=== PATIENT | male | born 1940 | race Caucasian/White ===

== ENCOUNTER → 2017-09-12 08:10 | Outpatient (POV) | payer MEDICARE, SELFPAY | PROVIDERS: PCP Internal Medicine Adolescent Medicine; Visit Provider Dermatology | DX: Z00.00 Encounter for general adult medical examination without abnormal findings (principal) ==

== ENCOUNTER → 2018-01-09 14:42 | Outpatient (POV) | payer MEDICARE, SELFPAY | PROVIDERS: Visit Provider Dermatology | DX: Z00.00 Encounter for general adult medical examination without abnormal findings (principal) ==

== ENCOUNTER → 2018-01-24 12:48 | Outpatient (CLI) | payer MEDICARE, SELFPAY ==
--- NOTE | 2018-01-24 12:52 | US_ITS ---
US scrotum HISTORY: ITS.REASON: SCROTOL SWELLING ORDERING PHYSICIAN: Kvng Frost MD PATIENT AGE: 77 years Comparison: None FINDINGS: The right testicle is 4.1 x 2.4 x 3.8 cm. Blood flow is present. No obvious testicular mass. No epididymal mass. There is a small hydrocele. The left testicle measures 3.9 x 2.2 x 3.6 cm. No mass evident. Blood flow is present. No obvious epididymal mass. Only a small amount fluid noted. There is moderate thickening of the scrotum anteriorly which is somewhat hyperechoic measuring up to 1 cm in thickness. IMPRESSION: 1. No testicular mass. 2. Small right hydrocele. 3. Moderate thickening of the scrotum anteriorly measuring up to 1 cm in thickness slightly hyperechoic. This is of questionable etiology possibly related to fat deposition.
== END ==
PROVIDERS: PCP Internal Medicine Adolescent Medicine; Visit Provider Urology
DX: N50.89 Other specified disorders of the male genital organs (principal)
CPT/HCPCS: 76870

== ENCOUNTER 2018-04-14 11:07 | Observation (INO) ==
--- NOTE | 2018-04-14 11:35 | Emergency Department Note ---
ED Disposition Clinical Impression: Fall, Atypical chest pain, Obesity (BMI 30-39.9), Arm paresthesia, left Disposition: Still a Patient Condition on Discharge: Fair - Critical Care Critical Care Time: No Attestation: On , the high probability of a clinically significant, sudden or life threatening deterioration of the following system(s) required my full and direct attention, intervention and personal management. The time I documented below is in addition to time spent performing reported procedures but includes the following listed in this critical care notation. Medical Decision Making - Medical Records Medical records reviewed: Yes: I reviewed the patient's medical records. - Heri Inquiry Pt receiving controlled substance: No Heri was queried for this patient: No Vital Signs: 04/14/18 11:11 04/14/18 11:39 Temperature 98.2 F Temperature Source Oral Oral Pulse Rate [Right Brachial] 83 77 Respiratory Rate 20 18 Blood Pressure [Right Arm] 145/81 131/71 Blood Pressure Mean [Right Arm] 102 91 Blood Pressure Source [Right Arm] Automatic Cuff Automatic Cuff Blood Pressure Position [Right Arm] Sitting Sitting 02 Sat by Pulse Oximetry 90 L 93 L Oxygen Delivery Method Room Air Room Air Orders (Tests/Meds): ORDERS Category Date Time Status CT cervical spine wo con Stat Cat Scan 04/14/18 11:[address] head/brain wo con Stat Cat Scan 04/14/18 11:37 Ordered XR chest 2V Stat Exams 04/14/18 11:37 Ordered Cardiac Enzymes Stat Lab 04/14/18 11:37 Ordered Complete Blood Count Auto Diff Stat Lab 04/14/18 11:37 Ordered Comprehensive Metabolic Panel Stat Lab 04/14/18 11:37 Ordered ECG Request by /Veronique Stat Y 04/14/18 11:37 Ordered - ECG Data Tracing #1 Normal sinus rhythm 73/min baseline artifact Q-wave in the inferior leads 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 No acute findings. ECG initial impression date: 04/14/18 ECG initial impression time: 12:03 Fall HPI - General Chief Complaint: Fall Stated Complaint: AO 04/14/18 [place] Arms, dizzy Time Seen by Provider: 04/14/18 11:11 Mode of Arrival: Family Vehicle Limitations: No Limitations Description of Symptoms (Recalled from ER Triage Doc. by RN): S/P FALL WHILE WORKING ON [employer]. C/O SOB X 3-4 WEEKS AND NUMBNESS OF LEFT ARM. SKIN TEAR TO RIGHT ARM - History of Present Illness HPI Narrative: 27 years old white male with obesity and coronary artery disease status post stenting in 2011, continues to be an anticoagulation for his stent. Today while he was cleaning under his lawnmower he fell forward because of his artificial knees the result of a skin avulsion over the proximal right forearm. He informed the nursing staff that he has been experiencing numbness over the left upper extremity for the past 3 hours. Also he has been experiencing shortness of breath for the past 3-4 weeks and sharp left inframammary pain for the past 2 days. 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 ) - Related Data Home Medications Medication Instructions Recorded Confirmed aspirin 81 mg tablet,delayed 81 mg PO DAILY 01/21/18 04/14/18 release atorvastatin 80 mg tablet 80 mg PO HS 90 Days tab 01/21/18 04/14/18 folic acid 1 mg tablet 1 mg PO DAILY 30 Days tab 01/21/18 04/14/18 lisinopril 5 mg tablet 5 mg PO DAILY 90 Days tab 01/21/18 04/14/18 metoprolol tartrate 25 mg tablet 25 mg PO BID 90 Days tab 01/21/18 04/14/18 Allergies Allergy/AdvReac Type Severity Reaction Status Date / Time No Known Allergies Allergy Verified 04/14/18 11:18 [facility] History I have reviewed the patient's past medical history: Yes Medical History: Reports:: Cancer Denies:: Diabetes Mellitus Type 1, Diabetes Mellitus Type 2, MRSA Comment: Heart Attack Laterality Cases: Bilateral: Total Knee Replacement Comment: Knee surgery, Cardiac surgery - Social History Smoking Status: Former smoker Tobacco Type: cigarettes # Packs/Day (cigarettes): 1 #Yrs smoked (if former smoker): 12 Alcohol Intake: never Substance Use Type: denies use Occupational Status: retired - Psychiatric History Expresses thoughts of harming self/others: None Suicide Plan Description: No Plan Family Hx:: Hyperlipidemia, Diabetes, Hypertension, Stroke Comment: Arthritis ROS Obtained: Yes All systems reviewed & no additional complaints Physical Exam - General General appearance: alert, in no apparent distress, other (Patient is alert oriented 3 looks in no cardiopulmonary distress provided full detailed history. ) - Head Head exam: atraumatic, normocephalic, normal inspection - Eye Eye exam: Present: normal appearance, PERRL, EOMI. Absent: scleral icterus, jaundice, nystagmus - ENT ENT exam: Present: normal exam, normal oropharynx, mucous membranes moist, TM's normal bilaterally, normal external ear exam - Neck Neck exam: Present: normal inspection, full ROM, trachea midline. Absent: tenderness, meningismus, lymphadenopathy - Chest Chest inspection: Present: normal inspection, symmetric chest wall rise. Absent : tenderness - Respiratory Respiratory exam: Present: normal lung sounds bilaterally. Absent: respiratory distress, wheezes - Cardiovascular Cardiovascular exam: Present: regular rate, normal rhythm, normal heart sounds. Absent: JVD - Abdominal Exam Abdominal exam: Present: soft, normal bowel sounds. Absent: distention, tenderness, guarding, rebound, rigidity - Extremities Exam Extremities exam: Present: normal inspection, full ROM, normal capillary refill. Absent: tenderness, calf tenderness - Back Exam Back exam: Present: normal inspection. Absent: tenderness, CVA tenderness (R), CVA tenderness (L), paraspinal tenderness - Neurological Exam Neurological exam: Present: alert, oriented X3, CN II-XII intact, normal gait, motor sensory deficit, reflexes normal, other - Expanded Neurological Exam Patient oriented to: Present: person, place, time Speech: Present: fluid speech Cranial nerves: Normal: EOM function (II, III, IV, ), facial sensation (V), facial palsy (VII), gag reflex (IX), spinal accessory function (XI), tongue deviation (XII) Cerebellar function: Normal: finger to nose, heel to [place] Cerebellar function: normal gait, Romberg normal Motor strength - LUE: 5/5 Motor strength - RUE: 5/5 Motor strength - LLE: 5/5 Motor strength - RLE: 5/5 Upper motor neuron exam: Absent bilaterally: john neglect, pronator drift, Babinski sign, sensory extinction Sensory exam upper extremity: Normal: pin prick Sensory exam lower extremity: Normal: pin prick DTR: 1+: biceps (L), biceps (R), brachioradialis (L), brachioradialis (R), triceps (L), triceps (R), Achilles tendon (L), Achilles tendon (R) Coma scale eye opening: Spontaneous Coma scale motor response: Obeys commands Coma scale verbal response: Oriented Coma scale total: 15 - Psychiatric Psychiatric exam: Present: normal affect, normal mood - Skin Skin exam: Present: warm, dry, intact, normal color - Lymphatic Lymphatic Findings: no adenopathy - Other Other exam information: The patient walked tandem negative rombergism intact finger to nose test.
[2018-04-14 12:10] LABS: Basophils % 0.4 % (0.1-2.0); Eosinophils # 0.2 K/mm3 (0.0-0.4); Eosinophils % 2.3 % (0.1-12.0); Hematocrit 41.7 % (42.0-52.0); Hemoglobin 13.4 g/dL (14.1-18.0); Lymphocytes # 1.2 K/mm3 (0.7-4.5); Mean Corpuscular HGB Conc 32.1 g/dL (31.8-35.4); Mean Corpuscular Hemoglobin 28.1 pg (27.0-31.2); Mean Corpuscular Volume 87.4 fl (80-94); Mean Platelet Volume 6.9 fl (7.4-10.4); Monocytes # 0.5 K/mm3 (0.1-1.0); Neutrophils # 5.4 K/mm3 (1.8-7.8); Neutrophils % 74.3 % (37.0-80.0); Platelet Count 248 K/mm3 (142-424); Red Blood Count 4.77 M/mm3 (4.60-6.20); Red Cell Distribution Width 16.1 % (11.5-17.5); White Blood Count 7.3 K/mm3 (4.8-10.8)
[2018-04-14 13:16] LABS: Alanine Aminotransferase 24 U/L (12-78); Albumin Level 3.3 gm/dL (3.4-5.0); Albumin/Globulin Ratio 0.9 (1.1-1.8); Alkaline Phosphatase 81 U/L (46-116); Anion Gap 8.5 mEq/L (5-15); Aspartate Amino Transferase 12 U/L (15-37); Bilirubin,Total 0.5 mg/dL (0.2-1.0); Blood Urea Nitrogen 13 mg/dL (7-18); Calcium 9.3 mg/dL (8.5-10.1); Carbon Dioxide 29 mmol/L (21.0-32.0); Chloride 109 mmol/L (98-107); Creatine Kinase 69 U/L (39-308); Globulin 3.5 gm/dl (1.3-3.2); Glucose 106 mg/dL (74-106); Potassium 4.5 mmoL/L (3.5-5.1); Sodium 142 mmol/L (136-145); Total Protein,Serum 6.8 gm/dL (6.4-8.2)
[2018-04-14 13:40] LABS: Microscopic, Urine URINE MICROSCOPIC (MICROSCOPIC)
[2018-04-14 13:48] LABS: Appearance,Urine CLEAR (Clear); Bilirubin,Urine Negative (Negative); Blood, Urine Negative (Negative); Color,Urine YELLOW (Yellow); Glucose,Urine (UA) Negative (Negative); Ketones,Urine Negative (Negative); Leukocyte Esterase,Urine Negative (Negative); Protein,Urine Negative (Negative); Specific Gravity, Urine 1.015 (1.005-1.030); Urobilinogen,Urine 0.2 EU/dl (0.2)
[2018-04-14 14:11] LABS: Bacteria,Urine 2+ /lpf; Mucus,Urine 2+ /lpf; Squamous Epithelial Cell,Urine Occasional #/hpf (0-5)
--- NOTE | 2018-04-14 14:30 | Pharmacy Consult Notes ---
[facility] Pharmacy VTE Monitoring - Patient Demographics Admission date: 04/14/18 Report Date: 04/14/18 Time: 14:29 Allergies/Adverse Reactions: Patient Allergies No Known Allergies Allergy (Verified 04/14/18 11:18) Height: 1.68 m Weight: 113.398 kg Patient Problems: Current Active Problems Fall (Acute) Atypical chest pain (Acute) Obesity (BMI 30-39.9) (Acute) Arm paresthesia, left (Acute) - VTE Risk Labs: VTE Related Lab Results Hgb 13.4 g/dL (14.1-18.0) L 04/14/18 12:00 Hct 41.7 % (42.0-52.0) L 04/14/18 12:00 Plt Count 248 K/mm3 (142-424) 04/14/18 12:00 BUN 13 mg/dL (7-18) 04/14/18 12:00 Creatinine 0.80 mg/dL (0.70-1.30) 04/14/18 12:00 Estimated Creat Clear 102 mL/min (0-300) 04/14/18 12:00 Clinical Trial Participant: No - Prophylaxis VTE Prophylaxis Ordered?: Yes Types of VTE Prophylaxis: TEDS Knee High
--- NOTE | 2018-04-14 16:10 | Carotid Imaging Report ---
"Cerebrovascular Exam Indications: 782.0 Disturbance of skin sensation. IMPRESSIONS 1. The bilateral vertebral arteries are patent with normal antegrade flow. 2. Study suggests 20-49% stenosis involving the right internal carotid artery and the left internal carotid artery, lower end of scale. Carotid duplex study. Complete study and Doppler flow study including spectral analysis, color and clayton scale imaging. Height: Height: 167.6cm. Height: 66in. Weight: Weight: 113.4kg. Weight: 249.5lb. Body mass index: BMI: 40.4kg/m^2. Body surface area: BSA: 2.35m^2. Location: Vascular laboratory. Patient status: Inpatient. Tables: Arterial flow: + +---------+--------+ |Location |V sys |V ed | + +---------+--------+ |Right CCA - proximal|85.6cm/s |16.5cm/s| + +---------+--------+ |Right CCA - distal |101cm/s |22cm/s | + +---------+--------+ |Right ECA |-84.9cm/s|--------| + +---------+--------+ |Right ICA - proximal|89.9cm/s |28.3cm/s| + +---------+--------+ |Right ICA - mid |77.3cm/s |27.7cm/s| + +---------+--------+ |Right ICA - distal |87.4cm/s |27.7cm/s| + +---------+--------+ |Right vertebral |31.4cm/s |--------| + +---------+--------+ |Left CCA - proximal |106cm/s |26.4cm/s| + +---------+--------+ |Left CCA - distal |71cm/s |16.3cm/s| + +---------+--------+ |Left ECA |119cm/s |--------| + +---------+--------+ |Left ICA - proximal |108cm/s |36.9cm/s| + +---------+--------+ |Left ICA - mid |97.4cm/s |38.5cm/s| + +---------+--------+ |Left vertebral |61.6cm/s |--------| + +---------+--------+ Velocity ratios: + + + + + + | |Right, V sys|Right, V ed|Left, V sys|Left, V ed| + + + + + + |Max ICA/dist CCA|0.89 |1.29 |1.52 |2.36 | + + + + + + (Report amended ) Electronically signed by: Fernando Carrasquillo [id number]"
--- NOTE | 2018-04-14 17:50 | History & Physical Report ---
*Admission Date: 04/14/18 *Chief complaint: Fall with right arm abrasion *History of present illness: 77-year-old white male with multiple medical problems including known coronary disease, status post stent placement in [address] Soren Blanca at [facility]-currently no available records of this procedure-who fell down after trying to start his lawnmower this morning. He states he stumbled after lifting up his torso after trying to start the lawnmower and fell down, coned abrasion on his left elbow on the asphalt of his driveway. Because of the size of the abrasion came to the emergency department. In the emergency department also complained of some dyspnea. Reported that he had chest pain off and on over the past 3 weeks, also complained of some left arm numbness that had resolved by the time he came to the ER. The abrasion was appropriately dressed and treated, workup for the left arm numbness and chest pain included negative CT scan of neck, negative CT scan of head and normal cardiac enzymes but given his accelerating angina pattern was to the hospital for further diagnostic testing. At the time of my examination the floor patient was feeling better, denied any complaints of left arm numbness or chest pain but was dyspneic with any movement around the room. [facility] History I have reviewed the patient's past medical history: Yes Medical History: Reports:: Congestive Heart Failure, Coronary Artery Disease ( Stents placed 2011), Hyperlipidemia, Hypertension, Myocardial Infarction Denies:: Cancer, Diabetes Mellitus Type 1, Diabetes Mellitus Type 2, MRSA Laterality Cases: Bilateral: Total Knee Replacement Other Surgeries: Yes: Cardiac Catheterization, Coronary Stent - *Social History Educational Level: Attended High School Smoking Status: Former smoker Tobacco Type: cigars # Packs/Day (cigarettes): 1 #Yrs smoked (if former smoker): 15 Alcohol Intake: never Alcohol Intake Frequency:: holidays/special occasions only Substance Use Type: denies use Occupational Status: retired Household Members: spouse - Psychiatric History Expresses thoughts of harming self/others: None Suicide Plan Description: No Plan *Family Hx:: Hyperlipidemia, Diabetes, Hypertension, Stroke Review of Systems - Review of Systems Review of systems:: pertinent systems reviewed and negative unless documented below - Constitutional Denies anorexia, Denies body ache(s), Denies chills, Denies daytime sleepiness - Eyes Denies blind spots, Denies blurry vision - ENT Denies abnormal hearing, Denies change in voice, Denies poor balance, Denies dizziness - *Cardiovascular Reports chest pain, Reports chest pain with activity, Reports shortness of breath, Reports shortness of breath with activity, Reports lightheadedness, Reports shortness of breath when lying down, Reports radiating jaw, neck or arm pain, Denies irregular heart rhythm, Denies leg swelling, Denies leg sores, Denies rapid, pounding, or irregular heartbeat - *Respiratory Reports shortness of breath, Reports shortness of breath with activity, Denies change in phlegm color, Denies chest congestion, Denies cough, Denies excessive phlegm production - *Gastrointestinal Denies abdominal pain, Denies belching, Denies bloating, Denies change in bowel habits, Denies constipation, Denies loose stools, Denies difficulty swallowing - *Genitourinary Denies difficulty urinating, Denies blood in urine Meds Home Medications Medication Instructions Recorded Confirmed Type aspirin 81 mg tablet,delayed 81 mg PO DAILY 01/21/18 04/14/18 History release atorvastatin 80 mg tablet 80 mg PO HS 90 Days tab 01/21/18 04/14/18 History folic acid 1 mg tablet 1 mg PO DAILY 30 Days tab 01/21/18 04/14/18 History lisinopril 5 mg tablet 5 mg PO DAILY 90 Days tab 01/21/18 04/14/18 History metoprolol tartrate 25 mg tablet 25 mg PO BID 90 Days tab 01/21/18 04/14/18 History Fluticasone Propionate [Flonase 1 spr NS DAILYP PRN 04/14/18 04/14/18 History 50mcg nasal spray 16gm] Tamsulosin HCl [Flomax 0.4mg 0.4 mg PO DAILY 04/14/18 04/14/18 History capsule] metHOTREXate sodium [metHOTREXate 15 mg PO WEEKLY 04/14/18 04/14/18 History 2.5mg Tablet] Allergies Allergy/AdvReac Type Severity Reaction Status Date / Time No Known Allergies Allergy Verified 04/14/18 11:18 Exam Vital signs and Labs for Last 24 Hours: Temp Pulse Resp BP Pulse Ox 98.5 F 78 20 124/81 95 04/14/18 15:40 04/14/18 15:40 04/14/18 15:40 04/14/18 15:40 04/14/18 15:40 Laboratory Results - last 24 hr 04/14/18 12:00: WBC 7.3, RBC 4.77, Hgb 13.4 L, Hct 41.7 L, MCV 87.4, MCH 28.1, MCHC 32.1, RDW 16.1, Plt Count 248, MPV 6.9 L, Neut % (Auto) 74.3, Lymph % (Auto ) 16.0, [place] % (Auto) 7.0, Eos % (Auto) 2.3, Baso % (Auto) 0.4, Neut # (Auto) 5.4, Lymph # (Auto) 1.2, [place] # (Auto) 0.5, Eos # (Auto) 0.2, Baso # (Auto) 0.0 04/14/18 12:00: Sodium 142, Potassium 4.5, Chloride 109 H, Carbon Dioxide 29, Anion Gap 8.5, BUN 13, Creatinine 0.80, Estimated Creat Clear 102, Estimated GFR 94, Est GFR ( Amer) 114, Glucose 106, Calcium 9.3, Total Bilirubin 0.5, AST 12 L, ALT 24, Alkaline Phosphatase 81, Total Creatine Kinase 69, CK-MB (CK-2) 0.8, CK-MB (CK-2) Rel Index 1.2, Troponin I < 0.02, Total Protein 6.8, Albumin 3.3 L, Globulin 3.5 H, Albumin/Globulin Ratio 0.9 L 04/14/18 12:00: B-Natriuretic Peptide 145 H 04/14/18 13:30: Urine Color Yellow, Urine Appearance Clear, Urine pH 7.0, Ur Specific [place] 1.015, Urine Protein Negative, Urine Glucose (UA) Negative, Urine Ketones Negative, Urine Blood Negative, Urine Nitrate Negative, Urine Bilirubin Negative, Urine Urobilinogen 0.2, Ur Leukocyte Esterase Negative, Urine RBC None, Urine WBC 3-5, Ur Squamous Epith Cells Occasional, Urine Bacteria 2+, Urine Mucus 2+ 04/14/18 15:40: Troponin I < 0.02 I & O for Last 24 hours: Intake & Output 04/12/18 04/13/18 04/14/18 04/15/18 11:59 11:59 11:59 11:59 Intake Total 560 / 560 Balance 560 / 560 Weight 250 lb 250 lb Narrative: Patient is obese with pickwickian features. Is dyspneic with any kind of movement or significant conversation. Heart rate regular without murmurs. Abdomen is obese but soft, lungs in the anterior garcia are clear. Able to move all extremities well. Has no weakness or reflex abnormalities of upper or lower extremities. Right elbow is in a gauze wrapped bandage with no evidence of bleeding or drainage from the dressing. Cranial nerves are intact. No edema in upper or lower extremities. H&P: Result - Labs Labs: Short CBC 04/14/18 Range/Units 12:00 WBC 7.3 (4.8-10.8) K/mm3 Hgb 13.4 L (14.1-18.0) g/dL Hct 41.7 L (42.0-52.0) % Plt Count 248 (142-424) K/mm3 BMP 04/14/18 12:00 Sodium 142 Potassium 4.5 Chloride 109 H Carbon Dioxide 29 BUN 13 Creatinine 0.80 Glucose 106 Calcium 9.3 Cardiac Enzymes 04/14/18 04/14/18 Range/Units 12:00 15:40 Total Creatine Kinase 69 (39-308) U/L CK-MB (CK-2) 0.8 (0.0-3.6) ng/ml Troponin I < 0.02 < 0.02 (0.00-0.06) ng/ml Liver Function 04/14/18 Range/Units 12:00 Total Bilirubin 0.5 (0.2-1.0) mg/dL AST 12 L (15-37) U/L ALT 24 (12-78) U/L Alkaline Phosphatase 81 (46-116) U/L Albumin 3.3 L (3.4-5.0) gm/dL Urine 04/14/18 Range/Units 13:30 Urine Color Yellow (Yellow) Urine Appearance Clear (Clear) Urine pH 7.0 (5.0-8.5) Ur Specific [place] 1.015 (1.005-1.030) Urine Protein Negative (Negative) Urine Glucose (UA) Negative (Negative) Assessment and Plan (1) Coronary atherosclerosis of [place] coronary artery Current visit: Yes Status: Acute Category: Medical Code(s): I25.10 - Atherosclerotic heart disease of [place] coronary artery without angina pectoris Significant risk of recurrent disease. Echocardiogram has been done. Pending report. Initial sets of cardiac enzymes are negative. Cardiology evaluation tomorrow for evaluation for recurrent heart catheterization versus stress testing. (2) Hypertension Current visit: Yes Status: Acute Category: Medical Code(s): I10 - Essential (primary) hypertension Blood pressure well controlled currently. Continue medications (3) Morbid obesity with BMI of 40.0-44.9, adult Current visit: Yes Status: Acute Category: Medical Code(s): E66.01 - Morbid (severe) obesity due to excess calories; Z68.41 - Body mass index (BMI) 40.0-44.9, adult Complicates all aspects of his care (4) Arm paresthesia, left Current visit: Yes Status: Acute Category: Medical Code(s): R20.2 - Paresthesia of skin Currently resolved. Carotid Dopplers negative. CT scan reviewed. Coronary disease needs to be considered. (5) Atypical chest pain Current visit: Yes Status: Acute Category: Medical Code(s): R07.89 - Other chest pain See notes on coronary disease as above (6) Fall Current visit: Yes Status: Acute Category: Medical Code(s): W19.XXXA - Unspecified fall, initial encounter Multiple issues with fall risk. Fall precautions in the hospital
--- NOTE | 2018-04-14 20:30 | Cardiology Report ---
PROCEDURE: 2-D M-mode and color Doppler study INDICATIONS FOR THE TEST: Chest pain + COPD Heart Murmur Tobacco Smoking Palpitations Fatigue Syncope Edema Hypertension Diabetes Mellitus Rheumatic Fever SOB+SYLVESTER Obesity+Hyperlipidemia Family History HD Additional History CAD, STENTS PATIENT INFORMATION HEIGHT: 66 WEIGHT:250 GENDER: Male B/P:131/71 2-D/M-MODE INTERPRETATION: 2-D MEASUREMENTS OBSERVED VALUES IN CMS Right Ventricular Dimension (RVDd) 2.9 Interventricular Septum (Thickness)(IVsd) 1.5 Left Ventricular Internal Dimensions(LVIDd) 5.3 Left Ventricular Posterior Wall (Thickness)(LVPWd) 1.3 Aortic Root 3.9 Aortic Cusp Separation 1.8 Left Atrial Dimensions (LAD) 5.1 2D 1. Left atrium is moderately enlarged, left ventricle is normal size, mild concentric left ventricular hypertrophy, visually estimated ejection fraction 55% with no obvious regional wall motion abnormality. 2. The right atrium and right ventricle are mildly enlarged with normal contractility. 3. The aortic valve is minimally thickened and fibrosed. 4. The mitral and tricuspid valve leaflets are minimally thickened 5.The pulmonic valve is poorly visualized. 6. No significant pericardial effusion noted. DOPPLER INTERROGATION: Doppler interrogation of the aortic, mitral and tricuspid valvular presence of mild mitral and tricuspid regurgitation, tricuspid and jet velocity is insufficient for calculation of the right ventricular systolic pressure, grade 1 diastolic dysfunction seen with tissue Doppler evidence of raised left atrial pressure. CONCLUSION: 1. Moderately enlarged atrium, normal left ventricular size, mild concentric left ventricular hypertrophy, visually estimated ejection fraction 55% with no obvious regional wall motion abnormality, grade 1 diastolic dysfunction seen with tissue Doppler evidence of raised left atrial pressure. 2. Mild mitral and tricuspid regurgitation 3. No significant pericardial effusion noted.
[2018-04-15 06:08] LABS: Basophils % 0.3 % (0.1-2.0); Eosinophils # 0.2 K/mm3 (0.0-0.4); Eosinophils % 2.4 % (0.1-12.0); Hematocrit 40.3 % (42.0-52.0); Lymphocytes # 1.3 K/mm3 (0.7-4.5); Lymphocytes % 15.4 K/mm3 (10-50); Mean Corpuscular HGB Conc 32.2 g/dL (31.8-35.4); Mean Corpuscular Hemoglobin 28.4 pg (27.0-31.2); Mean Corpuscular Volume 88.2 fl (80-94); Mean Platelet Volume 7.1 fl (7.4-10.4); Monocytes # 0.5 K/mm3 (0.1-1.0); Monocytes % 6.3 % (1.7-9.3); Neutrophils # 6.4 K/mm3 (1.8-7.8); Neutrophils % 75.5 % (37.0-80.0); Platelet Count 229 K/mm3 (142-424); Red Blood Count 4.57 M/mm3 (4.60-6.20); White Blood Count 8.4 K/mm3 (4.8-10.8)
[2018-04-15 06:35] LABS: Anion Gap 7.2 mEq/L (5-15); Calcium 9.2 mg/dL (8.5-10.1); Chol/HDL Ratio 2.5 (1-3.5); Potassium 4.2 mmoL/L (3.5-5.1)
--- NOTE | 2018-04-15 08:06 | Consult Report ---
History of Present Illness Consult date: 04/15/18 Requesting physician: Fran So Consult reason: chest pain, shortness of breath Chief complaint: SOA, chest pain, left arm pain Additional Medical History:: 1. Hypertension 2. Hyperlipidemia 3. Remote tobacco use discontinued 15 years ago 4. Coronary artery disease A. Inferior MD with stenting of the right coronary artery June 2012, , Dr. Blanca 5. Psoriasis, on methotrexate 6. Obesity 7. Status post bilateral knee replacements 8. History of kidney stones requiring interventional therapy and treatment History of present illness: 77-year-old white male with previous coronary artery disease, inferior MD and subsequent RCA stenting 3 in 2011 presented to the emergency department for evaluation and treatment of an abrasion of the right forearm after falling while working on a lawnmower. He denies syncope. Patient has dressing over an abrasion of the right forearm. While in the ER patient did mention 2-3 week history of shortness of breath stinging type left-sided chest pain and left arm discomfort started yesterday morning upon waking. Denies any loss of use of the left arm. No appreciable aggravating or alleviating symptoms to the chest pain. Shortness of breath is persistent through activity. Patient was admitted for evaluation of possible coronary artery disease. Troponins 4 are normal overnight. EKG is sinus with some residual inferior changes from previous MD without acute changes at this time. Echocardiogram shows normal left ventricular size with mild concentric LVH and moderate left atrial enlargement with left atrial size of 5.1 cm with no significant valvular heart disease. Patient did have carotid ultrasound showing mild to moderate carotid artery disease. Cardiology consulted for evaluation recommendations. Pt is concerned about being away from his who had a stroke several years ago and he is the primary caregiver. [facility] History Medical History: Reports:: Congestive Heart Failure, Coronary Artery Disease ( Stents placed 2011), Hyperlipidemia, Hypertension, Myocardial Infarction Denies:: Cancer, Diabetes Mellitus Type 1, Diabetes Mellitus Type 2, MRSA Laterality Cases: Bilateral: Total Knee Replacement Other Surgeries: Yes: Cardiac Catheterization, Coronary Stent - *Social History Educational Level: Attended High School Smoking Status: Former smoker Tobacco Type: cigars # Packs/Day (cigarettes): 1 #Yrs smoked (if former smoker): 15 Alcohol Intake: never Alcohol Intake Frequency:: holidays/special occasions only Substance Use Type: denies use Occupational Status: retired Household Members: spouse - Psychiatric History Expresses thoughts of harming self/others: None Suicide Plan Description: No Plan *Family Hx:: Hyperlipidemia, Diabetes, Hypertension, Stroke Meds Home Medications Medication Instructions Recorded Confirmed Type aspirin 81 mg tablet,delayed 81 mg PO DAILY 01/21/18 04/14/18 History release atorvastatin 80 mg tablet 80 mg PO HS 90 Days tab 01/21/18 04/14/18 History folic acid 1 mg tablet 1 mg PO DAILY 30 Days tab 01/21/18 04/14/18 History lisinopril 5 mg tablet 5 mg PO DAILY 90 Days tab 01/21/18 04/14/18 History metoprolol tartrate 25 mg tablet 25 mg PO BID 90 Days tab 01/21/18 04/14/18 History Fluticasone Propionate [Flonase 1 spr NOSTRIL-B DAILYP PRN 04/14/18 04/15/18 History 50mcg nasal spray 16gm] Tamsulosin HCl [Flomax 0.4mg 0.4 mg PO DAILY 04/14/18 04/14/18 History capsule] metHOTREXate sodium [metHOTREXate 15 mg PO WEEKLY 04/14/18 04/14/18 History 2.5mg Tablet] Allergies Allergy/AdvReac Type Severity Reaction Status Date / Time No Known Allergies Allergy Verified 04/14/18 11:18 Review of Systems - *Cardiovascular Reports chest pain, Reports shortness of breath with activity - *Respiratory Reports shortness of breath - *Gastrointestinal Denies abdominal pain - *Musculoskeletal Reports joint pain - *Neurologic Denies abnormal hearing, Denies unsteadiness, Denies dizziness Exam Vital signs and Labs for Last 24 Hours: Temp Pulse Resp BP Pulse Ox 98.4 F 81 22 139/78 92 L 04/15/18 07:47 04/15/18 07:47 04/15/18 07:47 04/15/18 07:47 04/15/18 07:47 Laboratory Results - last 24 hr 04/14/18 12:00: WBC 7.3, RBC 4.77, Hgb 13.4 L, Hct 41.7 L, MCV 87.4, MCH 28.1, MCHC 32.1, RDW 16.1, Plt Count 248, MPV 6.9 L, Neut % (Auto) 74.3, Lymph % (Auto ) 16.0, [place] % (Auto) 7.0, Eos % (Auto) 2.3, Baso % (Auto) 0.4, Neut # (Auto) 5.4, Lymph # (Auto) 1.2, [place] # (Auto) 0.5, Eos # (Auto) 0.2, Baso # (Auto) 0.0 04/14/18 12:00: Sodium 142, Potassium 4.5, Chloride 109 H, Carbon Dioxide 29, Anion Gap 8.5, BUN 13, Creatinine 0.80, Estimated Creat Clear 102, Estimated GFR 94, Est GFR ( Amer) 114, Glucose 106, Calcium 9.3, Total Bilirubin 0.5, AST 12 L, ALT 24, Alkaline Phosphatase 81, Total Creatine Kinase 69, CK-MB (CK-2) 0.8, CK-MB (CK-2) Rel Index 1.2, Troponin I < 0.02, Total Protein 6.8, Albumin 3.3 L, Globulin 3.5 H, Albumin/Globulin Ratio 0.9 L 04/14/18 12:00: B-Natriuretic Peptide 145 H 04/14/18 13:30: Urine Color Yellow, Urine Appearance Clear, Urine pH 7.0, Ur Specific [place] 1.015, Urine Protein Negative, Urine Glucose (UA) Negative, Urine Ketones Negative, Urine Blood Negative, Urine Nitrate Negative, Urine Bilirubin Negative, Urine Urobilinogen 0.2, Ur Leukocyte Esterase Negative, Urine RBC None, Urine WBC 3-5, Ur Squamous Epith Cells Occasional, Urine Bacteria 2+, Urine Mucus 2+ 04/14/18 15:40: Troponin I < 0.02 04/14/18 21:10: Troponin I < 0.02 04/15/18 03:15: Troponin I < 0.02 04/15/18 05:32: WBC 8.4, RBC 4.57 L, Hgb 13.0 L, Hct 40.3 L, MCV 88.2, MCH 28.4 , MCHC 32.2, RDW 16.0, Plt Count 229, MPV 7.1 L, Neut % (Auto) 75.5, Lymph % ( Auto) 15.4, [place] % (Auto) 6.3, Eos % (Auto) 2.4, Baso % (Auto) 0.3, Neut # (Auto ) 6.4, Lymph # (Auto) 1.3, [place] # (Auto) 0.5, Eos # (Auto) 0.2, Baso # (Auto) 0.0 04/15/18 05:32: Sodium 139, Potassium 4.2, Chloride 108 H, Carbon Dioxide 28, Anion Gap 7.2, BUN 10, Creatinine 0.82, Estimated Creat Clear 102, Estimated GFR 92, Est GFR ( Amer) 111, Glucose 129 H D, Calcium 9.2, Triglycerides 76, Cholesterol 98 L, LDL Cholesterol 44, VLDL Cholesterol 15, HDL Cholesterol 39, Cholesterol/HDL Ratio 2.5 I & O for Last 24 hours: Intake & Output 04/12/18 04/13/18 04/14/18 04/15/18 11:59 11:59 11:59 11:59 Intake Total 800 / 800 Balance 800 / 800 Weight 250 lb 250 lb - *Routine Neck Exam Absent: carotid bruit - *Routine Respiratory Exam Present: CTA bilaterally - *Routine Cardiovascular Exam Present: RRR. Absent: murmur, gallop, rubs - *Routine Abdominal Exam Absent: tenderness - *Routine Extremities Exam Absent: edema - *Routine Neurological Exam Present: alert, oriented X3, moving all extremities Assessment and Plan (1) Coronary atherosclerosis of [place] coronary artery Current visit: Yes Status: Acute Category: Medical Code(s): I25.10 - Atherosclerotic heart disease of [place] coronary artery without angina pectoris (2) Hypertension Current visit: Yes Status: Acute Category: Medical Code(s): I10 - Essential (primary) hypertension (3) Morbid obesity with BMI of 40.0-44.9, adult Current visit: Yes Status: Acute Category: Medical Code(s): E66.01 - Morbid (severe) obesity due to excess calories; Z68.41 - Body mass index (BMI) 40.0-44.9, adult (4) Arm paresthesia, left Current visit: Yes Status: Acute Category: Medical Code(s): R20.2 - Paresthesia of skin (5) Atypical chest pain Current visit: Yes Status: Acute Category: Medical Code(s): R07.89 - Other chest pain (6) Fall Current visit: Yes Status: Acute Category: Medical Code(s): W19.XXXA - Unspecified fall, initial encounter - Assessment and plan all Dx Assessment and Plan for all problems:: 1. Shortness of breath, left-sided chest pain and left arm pain in a patient with known coronary artery disease and a VIN score of 5 (age, recurrent chest pain, cardiac risk factors, daily aspirin use). Recommend proceeding with LHC today. 2. Further recommendations to follow.
--- NOTE | 2018-04-15 13:49 | Discharge Summary ---
General - General Admission date:: 04/14/18 Discharge date: 04/15/18 HPI HPI: 77-year-old white male with multiple medical problems including known coronary disease, status post stent placement in [address] Soren Blanca at [facility]-currently no available records of this procedure-who fell down after trying to start his lawnmower this morning. He states he stumbled after lifting up his torso after trying to start the lawnmower and fell down, coned abrasion on his left elbow on the asphalt of his driveway. Because of the size of the abrasion came to the emergency department. In the emergency department also complained of some dyspnea. Reported that he had chest pain off and on over the past 3 weeks, also complained of some left arm numbness that had resolved by the time he came to the ER. The abrasion was appropriately dressed and treated, workup for the left arm numbness and chest pain included negative CT scan of neck, negative CT scan of head and normal cardiac enzymes but given his accelerating angina pattern was to the hospital for further diagnostic testing. At the time of my examination the floor patient was feeling better, denied any complaints of left arm numbness or chest pain but was dyspneic with any movement around the room. Hospital Course Hospital Course: Mr. Troncoso is a 77-year-old morbidly obese gentleman with history of stent placement who presents after falling at home and was found to have stable angina in the ER. He was admitted for assessment of his angina and left heart cath. Remained stable during admission with no further episodes of anginal discomfort. Heart cath performed showing significant coronary disease with 3 vessels involved. Cardiology did not intervene on coronary disease due to extent and need for CABG. Patient symptoms remain stable. Plan to discharge home with as needed nitroglycerin and follow-up in 1 week with cardiothoracic surgery at for continued management and likely bypass surgery. Objective Vital signs: Temp Pulse Resp BP Pulse Ox 98.4 F 80 22 139/78 92 L 04/15/18 07:47 04/15/18 08:02 04/15/18 07:47 04/15/18 07:47 04/15/18 07:47 - *Routine HEENT Exam Head: Present: normocephalic, atraumatic Eye: Present: EOMI, PERRL ENT: Present: mucous membranes moist - *Routine Neck Exam Present: supple. Absent: lymphadenopathy - *Routine Respiratory Exam Present: CTA bilaterally. Absent: accessory muscle use, prolonged expiratory phase, rales - *Routine Cardiovascular Exam Present: RRR, Normal S1, Normal S2. Absent: murmur - *Routine Abdominal Exam Present: soft, normoactive bowel sounds Comments: Obese - *Routine Rectal Exam Patient deferred: visual exam - *Routine Exam Patient deferred: penile exam - *Routine Extremities Exam Present: full ROM. Absent: cyanosis, clubbing, edema - *Routine Skin Exam Present: intact. Absent: cyanosis, erythema - *Routine Neurological Exam Present: alert, oriented X3, CN II-XII intact - Routine Psychiatric Exam Present: normal affect, normal thought process, cooperative Results Labs on day of discharge: Labs from last 24 hours 04/15/18 04/15/18 04/15/18 05:32 05:32 03:15 WBC 8.4 RBC 4.57 L Hgb 13.0 L Hct 40.3 L MCV 88.2 MCH 28.4 MCHC 32.2 RDW 16.0 Plt Count 229 MPV 7.1 L Neut % (Auto) 75.5 Lymph % (Auto) 15.4 [place] % (Auto) 6.3 Eos % (Auto) 2.4 Baso % (Auto) 0.3 Neut # (Auto) 6.4 Lymph # (Auto) 1.3 [place] # (Auto) 0.5 Eos # (Auto) 0.2 Baso # (Auto) 0.0 Sodium 139 Potassium 4.2 Chloride 108 H Carbon Dioxide 28 Anion Gap 7.2 BUN 10 Creatinine 0.82 Estimated Creat Clear 102 Estimated GFR 92 Est GFR ( Amer) 111 Glucose 129 H D Calcium 9.2 Troponin I < 0.02 B-Natriuretic Peptide Triglycerides 76 Cholesterol 98 L LDL Cholesterol 44 VLDL Cholesterol 15 HDL Cholesterol 39 Cholesterol/HDL Ratio 2.5 Urine Color Urine Appearance Urine pH Ur Specific [place] Urine Protein Urine Glucose (UA) Urine Ketones Urine Blood Urine Nitrate Urine Bilirubin Urine Urobilinogen Ur Leukocyte Esterase Urine RBC Urine WBC Ur Squamous Epith Cells Urine Bacteria Urine Mucus 04/14/18 04/14/18 04/14/18 21:10 15:40 13:30 WBC RBC Hgb Hct MCV MCH MCHC RDW Plt Count MPV Neut % (Auto) Lymph % (Auto) [place] % (Auto) Eos % (Auto) Baso % (Auto) Neut # (Auto) Lymph # (Auto) [place] # (Auto) Eos # (Auto) Baso # (Auto) Sodium Potassium Chloride Carbon Dioxide Anion Gap BUN Creatinine Estimated Creat Clear Estimated GFR Est GFR ( Amer) Glucose Calcium Troponin I < 0.02 < 0.02 B-Natriuretic Peptide Triglycerides Cholesterol LDL Cholesterol VLDL Cholesterol HDL Cholesterol Cholesterol/HDL Ratio Urine Color Yellow Urine Appearance Clear Urine pH 7.0 Ur Specific [place] 1.015 Urine Protein Negative Urine Glucose (UA) Negative Urine Ketones Negative Urine Blood Negative Urine Nitrate Negative Urine Bilirubin Negative Urine Urobilinogen 0.2 Ur Leukocyte Esterase Negative Urine RBC None Urine WBC 3-5 Ur Squamous Epith Cells Occasional Urine Bacteria 2+ Urine Mucus 2+ 04/14/18 12:00 WBC RBC Hgb Hct MCV MCH MCHC RDW Plt Count MPV Neut % (Auto) Lymph % (Auto) [place] % (Auto) Eos % (Auto) Baso % (Auto) Neut # (Auto) Lymph # (Auto) [place] # (Auto) Eos # (Auto) Baso # (Auto) Sodium Potassium Chloride Carbon Dioxide Anion Gap BUN Creatinine Estimated Creat Clear Estimated GFR Est GFR ( Amer) Glucose Calcium Troponin I B-Natriuretic Peptide 145 H Triglycerides Cholesterol LDL Cholesterol VLDL Cholesterol HDL Cholesterol Cholesterol/HDL Ratio Urine Color Urine Appearance Urine pH Ur Specific [place] Urine Protein Urine Glucose (UA) Urine Ketones Urine Blood Urine Nitrate Urine Bilirubin Urine Urobilinogen Ur Leukocyte Esterase Urine RBC Urine WBC Ur Squamous Epith Cells Urine Bacteria Urine Mucus Preliminary micro results at discharge 04/14/18 13:30 Urine Culture - Preliminary Urine,Clean Catch NO GROWTH AFTER 24 HOURS DS: Diagnosis - Discharge Diagnosis (1) Coronary atherosclerosis of [place] coronary artery Status: Acute (2) Hypertension Status: Acute (3) Morbid obesity with BMI of 40.0-44.9, adult Status: Acute (4) Arm paresthesia, left Status: Acute (5) Atypical chest pain Status: Acute (6) Fall Status: Acute Discharge Plan - Patient Discharge Instructions ACTIVITY: Ambulate as tolerated, Limited activity, No heavy lifting DIET: low fat, low cholesterol, cardiac - Follow up Plan Follow up with: Fran So MD [Primary Care Provider] - 1 week Unknown provider or service follow up:: 04/15/18 14:00 Cardiothoracic Surgery, Dr. Sekela Disposition: Home, Self-Custodial Medications: Home Medications Medication Instructions Recorded Confirmed Type aspirin 81 mg tablet,delayed 81 mg PO DAILY 01/21/18 04/14/18 History release atorvastatin 80 mg tablet 80 mg PO HS 90 Days tab 01/21/18 04/14/18 History folic acid 1 mg tablet 1 mg PO DAILY 30 Days tab 01/21/18 04/14/18 History lisinopril 5 mg tablet 5 mg PO DAILY 90 Days tab 01/21/18 04/14/18 History metoprolol tartrate 25 mg tablet 25 mg PO BID 90 Days tab 01/21/18 04/14/18 History Fluticasone Propionate [Flonase 1 spr NOSTRIL-B DAILYP PRN 04/14/18 04/15/18 History 50mcg nasal spray 16gm] Tamsulosin HCl [Flomax 0.4mg 0.4 mg PO DAILY 04/14/18 04/14/18 History capsule] metHOTREXate sodium [metHOTREXate 15 mg PO WEEKLY 04/14/18 04/14/18 History 2.5mg Tablet] Prescriptions/Medication Reconciliation: New Nitroglycerin [Nitrostat] 0.3 mg SL Q5MINP PRN 30 Days #100 tab.subl PRN Reason: Chest Pain Continue folic acid 1 mg tablet 1 mg PO DAILY 30 Days tab atorvastatin 80 mg tablet 80 mg PO HS 90 Days tab metoprolol tartrate 25 mg tablet 25 mg PO BID 90 Days tab lisinopril 5 mg tablet 5 mg PO DAILY 90 Days tab aspirin 81 mg tablet,delayed release 81 mg PO DAILY Tamsulosin HCl [Flomax 0.4mg capsule] 0.4 mg PO DAILY metHOTREXate sodium [metHOTREXate 2.5mg Tablet] 15 mg PO WEEKLY Fluticasone Propionate [Flonase 50mcg nasal spray 16gm] 1 spr NOSTRIL-B DAILYP PRN PRN Reason: ALLERGIES
[2018-04-15 17:03] VITALS: BP 129/75
== END 2018-04-15 17:05 | disposition home or self-care (01) ==
LOC: ER 11:07 → 2ND 11:07
PROVIDERS: ADMIT Internal Medicine Adolescent Medicine; ATTEND Internal Medicine Adolescent Medicine

== ENCOUNTER → 2018-08-26 09:20 | Outpatient (POV) | payer MEDICARE, SELFPAY | PROVIDERS: Visit Provider Dermatology | DX: Z00.00 Encounter for general adult medical examination without abnormal findings (principal) ==

== ENCOUNTER → 2019-01-13 08:52 | Outpatient (POV) | payer MEDICARE, SELFPAY | PROVIDERS: Visit Provider Dermatology | DX: Z00.00 Encounter for general adult medical examination without abnormal findings (principal) ==

== ENCOUNTER → 2019-02-03 10:08 | Outpatient (POV) | payer MEDICARE, SELFPAY | PROVIDERS: Visit Provider Dermatology | DX: Z00.00 Encounter for general adult medical examination without abnormal findings (principal) ==

== ENCOUNTER → 2019-03-30 10:18 | Outpatient (CLI) | payer MEDICARE, SELFPAY ==
--- NOTE | 2019-03-30 10:27 | XR_ITS ---
XR chest 2V HISTORY: ITS.REASON: BRONCHOPNEUMONIA ORDERING PHYSICIAN: Fran So MD PATIENT AGE: 78 years COMPARISON: 04/14/2018. FINDINGS: The cardiomediastinal silhouette and pulmonary vascularity are within normal limits. Lateral view shows some persistent strands of increased density overlying the lower thoracic spine which are probably in the posterior left lung base. These are stable. Also stable is the left lateral and posterior pleural thickening. There is a stable wedge-shaped density adjacent to the cardiac apex likely also pleural thickening or related to prominent pericardial fat-pad. This is benign and stable. The remainder of the lung garcia are clear.. No acute bony abnormalities. IMPRESSION: Chronic findings on the left side with scarring at the posterior left lung base. Left-sided pleural thickening. No change or acute process.
== END ==
LOC: LAB 10:21 → RAD 10:24
PROVIDERS: PCP Internal Medicine Adolescent Medicine; Visit Provider Internal Medicine Adolescent Medicine
DX: J18.0 Bronchopneumonia, unspecified organism (principal)
CPT/HCPCS: 71046

== ENCOUNTER → 2019-04-21 10:21 | Outpatient (POV) | payer MEDICARE, SELFPAY | PROVIDERS: Visit Provider Dermatology | DX: Z00.00 Encounter for general adult medical examination without abnormal findings (principal) ==

== ENCOUNTER → 2020-01-26 08:02 | Outpatient (POV) | payer MEDICARE, SELFPAY | PROVIDERS: PCP Physician Assistant; Visit Provider Physician Assistant | DX: Z00.00 Encounter for general adult medical examination without abnormal findings (principal) ==

== ENCOUNTER → 2020-07-05 13:09 | Outpatient (CLI) | payer MEDICARE, SELFPAY ==
--- NOTE | 2020-07-05 13:17 | XR_ITS ---
PROCEDURE: XR FOOT RT MIN 3V CLINICAL INDICATION: RT FOOT PAIN COMPARISON: No exams were available for comparison FINDINGS: No fracture or dislocation. No lytic or blastic change. There is normal mineralization. The joint spaces are well-preserved. No significant degenerative/arthritic changes. No erosive changes evident. Other findings:There is a small calcaneal spur. Vascular calcification is also noted. IMPRESSION: No acute findings. Dictated by: Fernando Carrasquillo MD 07/05/2020 16:28 Fernando Carrasquillo MD in [place] 07/05/2020 16:28
== END ==
PROVIDERS: PCP Internal Medicine Adolescent Medicine; Visit Provider Internal Medicine Adolescent Medicine
DX: M79.671 Pain in right foot (principal)
CPT/HCPCS: 73630

== ENCOUNTER → 2020-07-11 11:06 | Outpatient (CLI) | payer MEDICARE, SELFPAY ==
--- NOTE | 2020-07-11 11:13 | XR_ITS ---
PROCEDURE: XR KNEE RT 3V CLINICAL INDICATION: RT KNEE PAIN COMPARISON: No exams were available for comparison FINDINGS: Status post total knee replacement with good alignment. No fracture or dislocation. No evidence of orthopedic complication. No lytic or blastic change. Surgical clips are present at the proximal tibia medially and posteriorly. Other findings:None. IMPRESSION: No acute findings. Status post total knee replacement with good alignment and no acute finding Dictated by: Fernando Carrasquillo MD 07/11/2020 13:32 Fernando Carrasquillo MD in [facility] 07/11/2020 13:32
--- NOTE | 2020-07-11 11:13 | XR_ITS ---
PROCEDURE: XR HIP RT 2-3V W/PELVIS CLINICAL INDICATION: RT HIP PAIN COMPARISON: No exams were available for comparison FINDINGS: There are mild osteoarthritic changes of the right hip. No acute fracture or dislocation. Degenerative changes are also present in the lower lumbar spine and left hip. IMPRESSION: Osteoarthritis otherwise negative Dictated by: Fernando Carrasquillo MD 07/11/2020 13:30 Fernando Carrasquillo MD in [facility] 07/11/2020 13:30
--- NOTE | 2020-07-11 11:13 | XR_ITS ---
PROCEDURE: XR FEMUR RT 2V CLINICAL INDICATION: RT HIP PAIN COMPARISON: No exams were available for comparison FINDINGS: No fracture or dislocation. No lytic or blastic change. There is normal mineralization. There are mild osteoarthritic changes of the right hip. There is total knee prosthesis a present distally. No acute fracture or dislocation. No lytic or blastic change. There is mild generalized vascular calcification. Other findings:None. IMPRESSION: As above, no acute finding Dictated by: Fernando Carrasquillo MD 07/11/2020 13:31 Fernando Carrasquillo MD in [facility] 07/11/2020 13:31
== END ==
PROVIDERS: PCP Internal Medicine Adolescent Medicine; Visit Provider Internal Medicine Adolescent Medicine
DX: M25.551 Pain in right hip (principal); M25.561 Pain in right knee
CPT/HCPCS: 73502; 73552; 73562

== ENCOUNTER 2020-09-07 13:00 | Outpatient (RCR) | payer MEDICARE, SELFPAY ==
--- NOTE | 2020-07-18 14:41 | HMH.PTOPEV ---
PT Outpatient Evaluation Rehab PT Outpatient Evaluation Start: 07/18/20 14:00 Freq: Status: Active Protocol: Document 07/18/20 14:27 ALFREDO (Rec: 07/18/20 14:41 PHORBRITTA [id number]) Electronically Signed By Gregg Campa, PT 07/18/20 14:27 Outpatient Therapy Subjective History Subjective History Pt is 80 yowm who presents with c/o pain in the R lateral thigh and the anterior oviedo x ~ 2 wks after a chair slid out from under me and I landed on my knee on the floor. He had x-rays taken of hip, femur , and knee which were negative for acute pathology. He reports the pain as a deep aching which is significantly worse with WB'ing activity, standing > walking. His pain is relieved with supine B LE manual traction. He has PMH of chronic LBP, CAD, CABG x 3v, PAD, B TKA. Chief Complaint Pain Symptom Type Ache Symptoms Relieved By Rest/Positioning Symptoms Aggravated By Standing,Walking Prior Functional Limitations None Current Functional Limitations Sleeping,Standing,Walking Symptom Description Constant but Variable Level of pain today (0-10) 8 Pain scale - at its worst (0-10) 10 Hip/Knee Eval Gait Observation General Gait Pattern Observation Antalgic Gait Assistive Device Assistive Devices Straight Cane Palpation Tenderness right Hip Palpation Findings Tenderness MMT Hip Flexion Strength Grade 4- Good- Hip Abduction Strength Grade 4 Good Hip Adduction Strength Grade 5 Normal Knee Extension Strength Grade 5 Normal Knee Flexion Strength Grade 5 Normal Special Tests Hip Bowstring (Cram) Test Positive Left,Positive Right Hip Piriformis Test Negative Left,Negative Right Sciatic Nerve Tension Test Negative Left,Positive Right Hip Scouring (Quadrant) Test Negative Left,Negative Right Outpatient Therapy Assessment Impairments Problems/Impairmments Palpation Tenderness,Impaired Strength,Impaired Walking, Impaired Standing,Impaired Recreational Activities, Subjective C/O Pain,Impaired Self Care/Self Management Prognosis Rehab Potential Fair Clinical Impression Consistent with Diagnosis Yes Consistent with
--- NOTE | 2020-08-16 15:23 | HMH.RHREAS ---
Rehab Reassessment Rehab OP Re-assessment Start: 08/16/20 15:19 Freq: Status: Active Protocol: Document 08/16/20 15:21 ALFREDO (Rec: 08/16/20 15:23 ALFREDO [id number]) Electronically Signed By Gregg Campa, PT 08/16/20 15:21 Rehab Re-assessment Subjective Subjective Pt reports pain only in middle of lumbar spine now, no pain in the R hip. Objective Objective Notes MMT B LE: grossyl 5/5 throughout except R hip ABD and FLEX 4/5. Pain: 6/10 in lumbar spine. Assessment Progress Assessment Progressing as Expected Assessment Notes Pt with improved pain, improved mobility, and centralization of symptoms. Patient goals met ST,2,3,4,5 Goals Not Met LT,2,3,4,5 Revised Goals none Plan Plan Continue per initial POC Frequency of Therapy 2 x/wk Duration of therapy 8 wks Time and Billing Re-Eval Time 15 Re-Eval Billing Units 1 PHYSICIAN CERTIFICATION: I certify the specified therapy services for Sina Troncoso are required, authorized, and reviewed every 30 days.
== END 2020-09-07 13:05 | disposition home or self-care (01) ==
LOC: PT 13:00
PROVIDERS: PCP Internal Medicine Adolescent Medicine; Visit Provider Internal Medicine Adolescent Medicine
DX: M25.551 Pain in right hip (principal)
CPT/HCPCS: 97010; 97012; 97014; 97110; 97140; 97163; 97164; G0283

== ENCOUNTER → 2021-01-31 15:20 | Outpatient (POV) | payer MEDICARE, SELFPAY | PROVIDERS: Visit Provider Dermatology | DX: Z00.00 Encounter for general adult medical examination without abnormal findings (principal) ==

== ENCOUNTER 2021-06-08 13:22 | Inpatient (IN) | payer MEDICARE, SELFPAY ==
[2021-06-08] VITALS (8 sets, daily range): BP systolic 96–131; BP diastolic 44–80; PULSE 75–90; RESP 18–24; TEMP 36.6–37.2; O2SAT 89–97; BMI 40.3; BMI 39.5
--- NOTE | 2021-06-08 13:38 | ECG_ITS ---
APPROVED REPORT Exam: Resting ECG HR:79 bpm ECG Measurements Heart Rate 79 AXES CA 130 P 46 QRSd 88 QRS 48 QT 384 T 39 QTc 440 Conclusion Normal sinus rhythm Possible Inferior infarct, age undetermined Abnormal ECG Electronically signed by : Fran So MD 06/09/2021 19:57:07
--- NOTE | 2021-06-08 13:40 | HMH.EDGENADL ---
ED Disposition Clinical Impression: Pneumonia due to COVID-19 virus Respiratory failure with hypoxia Qualifiers: Chronicity: acute Qualified Code(s): J96.01 - Acute respiratory failure with hypoxia Hypotension Qualifiers: Hypotension type: unspecified hypotension type Qualified Code(s): I95.9 - Hypotension, unspecified Disposition: Admitted As Inpatient Condition on Discharge: Serious - Critical Care Critical Care Time: Yes Attestation: On , the high probability of a clinically significant, sudden or life threatening deterioration of the following system(s) required my full and direct attention, intervention and personal management. The time I documented below is in addition to time spent performing reported procedures but includes the following listed in this critical care notation. Total Critical Care Time: 30 Vital system(s) involved:: Circulatory Failure, Respiratory Failure My critical care processes included: Assessment & monitoring of V/S, Initial and Re-exams, Data Review/Interpretation, Coordinating Care, Medication Orders and management, Documentation Medical Decision Making - Heri Inquiry Pt receiving controlled substance: No Vital Signs: 06/08/21 13:23 06/08/21 16:03 Temperature 98.3 F Temperature Source Oral Pulse Rate 82 Pulse Rate [Left Radial] 78 Respiratory Rate 24 20 Blood Pressure 113/55 L Blood Pressure [Right Arm] 97/53 L Blood Pressure Mean 74 Blood Pressure Mean [Right Arm] 67 Blood Pressure Source [Right Arm] Automatic Cuff Blood Pressure Position [Right Arm] Sitting 02 Sat by Pulse Oximetry 89 L 97 Oxygen Delivery Method Room Air - Lab Data Lab Results 06/08/21 13:50: SARS-CoV-2 (PCR) Detected A, Influenza A Untype (PCR) Not detected, Influenza Type B (PCR) Not detected 06/08/21 13:55: Lactate 0.9 06/08/21 13:55: WBC 3.0 L, RBC 4.94, Hgb 15.3, Hct 46.8, MCV 94.7 H, MCH 30.9, MCHC 32.7, RDW 15.6, Plt Count 123 L, MPV 8.3, Neut % (Auto) 66.2, Lymph % (Auto) 19.0, [place] % (Auto) 13.3 H, Eos % (Auto) 0.1, Baso % (Auto) 1.4, Neut # (Auto) 2.0, Lymph # (Auto) 0.6 L, [place] # (Auto) 0.4, Eos # (Auto) 0.0, Baso # (Auto) 0.0 06/08/21 13:55: Troponin I 0.02 06/08/21 13:55: NT-Pro-B Natriuret Pep 527 H 06/08/21 13:55: Total Bilirubin 0.5, Direct Bilirubin 0.0, Conjugated Bilirubin 0.0, Indirect Bilirubin 0.5, Unconjugated Bilirubin 0.5, AST 32, ALT 20, Alkaline Phosphatase 69, Total Protein 6.6, Albumin 3.6 06/08/21 13:55: Sodium 136, Potassium 4.2, Chloride 100, Carbon Dioxide 27, Anion Gap 13.2, BUN 16, Creatinine 0.90, Estimated Creat Clear 96, Estimated GFR 81, Est GFR ( Amer) 98, Glucose 121 H, Calcium 9.2 Result diagrams: 06/08/21 13:55 06/08/21 13:55 Orders (Tests/Meds): ED MEDICATIONS Discontinued Medications Generic Name Dose Route Start Last Admin Trade Name Freq PRN Reason Stop Dose Admin Iopamidol 70 ml 06/08/21 15:54 06/08/21 15:55 Iopamidol-370 (76%);100ml Bottle IV 06/08/21 15:55 70 ml ONCE ONE Administration Sodium Chloride 250 ml 06/08/21 15:11 06/08/21 15:12 Sodium Chloride 0.9% 250ml Bag IV 06/08/21 15:12 250 ml ONCE ONE Administration Sodium Chloride 10 ml 06/08/21 15:54 06/08/21 15:55 Sodium Chloride 0.9% 10ml Syr (Rad Only) IV 06/08/21 15:55 10 ml ONCE ONE Administration ORDERS Category Date Time Status Blood Culture Stat Micro 06/08/21 13:53 Received - Radiology Data #1 Image(s): Chest Image Reviewed: Yes I have reviewed radiologist's interpretation PROCEDURE: XR CHEST PORTABLE CLINICAL HISTORY: soa COMPARISON: CR CXR CHEST(2 VIEWS-NOT PORTABLE) from 10/16/2016 CR CXR2V XR chest 2V from 04/14/2018 FINDINGS: Mild cardiomegaly without failure. There has been a prior median sternotomy. Patchy infiltrate is present in the right upper and right lower lobe. Chronic increased density is present in the lingula and appears slightly more prominent on today's exam.
--- NOTE | 2021-06-08 13:53 | XR_ITS ---
PROCEDURE: XR CHEST PORTABLE CLINICAL HISTORY: soa COMPARISON: CR CXR CHEST(2 VIEWS-NOT PORTABLE) from 10/16/2016 CR CXR2V XR chest 2V from 04/14/2018 FINDINGS: Mild cardiomegaly without failure. There has been a prior median sternotomy. Patchy infiltrate is present in the right upper and right lower lobe. Chronic increased density is present in the lingula and appears slightly more prominent on today's exam. There is also chronic blunting of the left CP angle suggesting small left effusion or pleural thickening. No acute bony findings. IMPRESSION: Chronic areas of increased density are present in the right lower lobe and lingula which could be due to chronic infiltrates and or volume loss. New increased density is present in the right upper lobe suggesting pneumonia. There is also chronic blunting of the left CP angle. Dictated by: Fernando Carrasquillo MD 06/08/2021 14:26 Fernando Carrasquillo MD in [facility] 06/08/2021 14:26
[2021-06-08 14:16] LABS: Influenza A, PCR Not Detected (NotDetected); Influenza B, PCR Not Detected (NotDetected)
--- NOTE | 2021-06-08 14:19 | PC.NURSE ---
Dr Hdz spoke with Dr So
[2021-06-08 14:24] LABS: Basophils % 1.4 % (0.1-2.0); Eosinophils % 0.1 % (0.1-12.0); Hematocrit 46.8 % (42.0-52.0); Hemoglobin 15.3 g/dL (14.1-18.0); Lymphocytes # 0.6 K/mm3 (0.7-4.5); Mean Corpuscular HGB Conc 32.7 g/dL (31.8-35.4); Mean Corpuscular Hemoglobin 30.9 pg (27.0-31.2); Mean Corpuscular Volume 94.7 fl (80-94); Mean Platelet Volume 8.3 fl (7.4-10.4); Monocytes # 0.4 K/mm3 (0.1-1.0); Monocytes % 13.3 % (1.7-9.3); Neutrophils % 66.2 % (37.0-80.0); Platelet Count 123 K/mm3 (142-424); Red Blood Count 4.94 M/mm3 (4.60-6.20); Red Cell Distribution Width 15.6 % (11.5-17.5)
[2021-06-08 14:30] LABS: Chloride 100 mmol/L (98-107); Sodium 136 mmol/L (136-145)
[2021-06-08 14:31] LABS: Potassium 4.2 mmoL/L (3.5-5.1)
[2021-06-08 14:33] LABS: Anion Gap 13.2 mEq/L (5-15); Blood Urea Nitrogen 16 mg/dl (9-20); Carbon Dioxide 27 mmol/L (22.0-30.0); Creatinine Clearance Estimated 96 mL/min (50-200); Estimated Glomerular Filt Rate 81 ml/min (>60); GFR (African American) 98 ML/MIN (>60)
[2021-06-08 14:34] LABS: Alanine Aminotransferase 20 U/L (12-78); Albumin Level 3.6 g/dl (3.5-5.0); Alkaline Phosphatase 69 U/L (38-126); Aspartate Amino Transferase 32 U/L (17-59); Bilirubin,Indirect 0.5 mg/dL (0.0-0.9); Bilirubin,Total 0.5 mg/dl (0.2-1.3); Bilirubin,Unconjugated 0.5 mg/dL (0.0-1.1); Calcium 9.2 mg/dl (8.4-10.2); Glucose 121 mg/dl (74-100); Total Protein,Serum 6.6 g/dl (6.3-8.2)
[2021-06-08 14:35] LABS: Lactic Acid 0.9 mmol/L (0.7-2.1)
[2021-06-08 14:40] LABS: Coronavirus 19, PCR Detected (NotDetected)
[2021-06-08 14:44] LABS: NT Pro Brain Natriuretic Pep. 527 pg/mL (0-450)
[2021-06-08 14:46] LABS: Troponin I 0.02 ng/ml (0.00-0.034)
--- NOTE | 2021-06-08 14:55 | CT_ITS ---
PROCEDURE: CT ANGIO CHEST PE PROTOCOL CLINCIAL INDICATION: hypoxia, covid COMPARISON: CR XR CHEST PORTABLE from 06/08/2021 TECHNIQUE: IV Contrast: 70ML Isovue 370 Axial images obtained with sagittal and coronal reformats. All CT scans at the facility use one or more dose reduction, viz: automated exposure control, ma/kV adjustment per patient size (including targeted exams where dose is matched to indication, i.e. head), or iterative reconstruction technique. FINDINGS: HEART AND MEDIASTINAL STRUCTURES: No evidence of pulmonary embolus, aortic aneurysm, or aortic dissection. There has been a prior CABG. LUNGS AND PLEURAL SPACES: There is some hyperinflation. Ground-glass attenuation noted in the right upper lobe centrally extending laterally consistent with pneumonia. Smaller areas of ground-glass infiltrate are noted in the right upper lobe anteriorly in the right upper lobe posteriorly as well as the right middle lobe. There are atelectatic changes in the lower lobes posteriorly. There is a trace right pleural effusion. 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 UPPER ABDOMEN: There are few small nodes in the periportal region ADDITIONAL FINDINGS: Bilateral gynecomastia. IMPRESSION: 1. No evidence of pulmonary embolus. 2. Multifocal areas of ground-glass infiltrate in the right upper and right middle lobe suggestive of Covid19 pneumonia with bilateral lower lobe atelectatic changes and trace right effusion. Dictated by: Fernando Carrasquillo MD 06/08/2021 16:11 Fernando Carrasquillo MD in [facility] 06/08/2021 16:11
--- NOTE | 2021-06-08 16:25 | PC.NURSE ---
paged Dr So
--- NOTE | 2021-06-08 17:13 | PC.NURSE ---
Report given to Jenn PHELPS
--- NOTE | 2021-06-08 18:20 | PC.NURSE ---
pt arrived to the floor at this time.
--- NOTE | 2021-06-08 20:23 | PC.NURSE ---
Pt to floor at 1825. Report given to Kathleen Cruz,RN, primary nurse for pt martín. VSS upon arriving to floor. CB in reach.
[2021-06-09] VITALS (7 sets, daily range): BP systolic 122–141; BP diastolic 65–89; PULSE 73–100; RESP 18–28; TEMP 36.9–37.9; O2SAT 90–94; BMI 39.8; BMI 39.6
--- NOTE | 2021-06-09 06:12 | PC.NURSE ---
Patient had an uneventful night this shift; No acute distress noted this shift; Patient will continue, call light within reach, bed at lowest level for safety; will continue to monitor.
--- NOTE | 2021-06-09 07:45 | HMH.PHAVTE ---
[facility] Pharm[facility] VTE Monitoring - Patient Demographics Admission date: 06/08/21 Report Date: 06/09/21 Time: 07:45 Allergies/Adverse Reactions: Patient Allergies No Known Allergies Allergy (Verified 09/15/20 08:13) Height: 1.68 m Weight: 112.491 kg Patient Problems: Current Active Problems Pneumonia due to COVID-19 virus (Acute) Respiratory failure with hypoxia (Acute) Hypotension (Acute) - VTE Risk Labs: VTE Related Lab Results Hgb 15.3 g/dL (14.1-18.0) 06/08/21 13:55 Hct 46.8 % (42.0-52.0) 06/08/21 13:55 Plt Count 123 K/mm3 (142-424) L 06/08/21 13:55 BUN 16 mg/dl (9-20) 06/08/21 13:55 Creatinine 0.90 mg/dl (0.66-1.25) 06/08/21 13:55 Estimated Creat Clear 96 mL/min (50-200) 06/08/21 13:55 Clinical Trial Participant: No - Prophylaxis VTE Prophylaxis Ordered?: Yes Types of VTE Prophylaxis: TEDS Knee High, Pharmacological Pharmacologic Type: Enoxaparin
--- NOTE | 2021-06-09 07:57 | HMH.ACPN2 ---
Internal Medicine - PN: Subj *Date: 06/09/21 *Time: 07:57 Exam Vital signs and Labs for Last 24 Hours: Temp Pulse Resp BP Pulse Ox 99.3 F 100 H 22 140/69 93 L 06/09/21 07:46 06/09/21 07:46 06/09/21 07:46 06/09/21 07:46 06/09/21 07:46 Laboratory Results - last 24 hr 06/08/21 13:50: SARS-CoV-2 (PCR) Detected A, Influenza A Untype (PCR) Not detected, Influenza Type B (PCR) Not detected 06/08/21 13:55: Lactate 0.9 06/08/21 13:55: WBC 3.0 L, RBC 4.94, Hgb 15.3, Hct 46.8, MCV 94.7 H, MCH 30.9, MCHC 32.7, RDW 15.6, Plt Count 123 L, MPV 8.3, Neut % (Auto) 66.2, Lymph % (Auto) 19.0, [place] % (Auto) 13.3 H, Eos % (Auto) 0.1, Baso % (Auto) 1.4, Neut # (Auto) 2.0, Lymph # (Auto) 0.6 L, [place] # (Auto) 0.4, Eos # (Auto) 0.0, Baso # (Auto) 0.0 06/08/21 13:55: Troponin I 0.02 06/08/21 13:55: NT-Pro-B Natriuret Pep 527 H 06/08/21 13:55: Total Bilirubin 0.5, Direct Bilirubin 0.0, Conjugated Bilirubin 0.0, Indirect Bilirubin 0.5, Unconjugated Bilirubin 0.5, AST 32, ALT 20, Alkaline Phosphatase 69, Total Protein 6.6, Albumin 3.6 06/08/21 13:55: Sodium 136, Potassium 4.2, Chloride 100, Carbon Dioxide 27, Anion Gap 13.2, BUN 16, Creatinine 0.90, Estimated Creat Clear 96, Estimated GFR 81, Est GFR ( Amer) 98, Glucose 121 H, Calcium 9.2 I & O for Last 24 hours: Intake & Output 06/06/21 06/07/21 06/08/21 06/09/21 23:59 23:59 23:59 23:59 Output Total 300 / 300 Balance -300 / -300 Weight 111.215 kg 112.491 kg
[2021-06-09 08:54] LABS: Basophils % 0.3 % (0.1-2.0); Eosinophils % 0.4 % (0.1-12.0); Hematocrit 44.4 % (42.0-52.0); Hemoglobin 14.3 g/dL (14.1-18.0); Lymphocytes # 0.4 K/mm3 (0.7-4.5); Lymphocytes % 10.4 % (10-50); Mean Corpuscular HGB Conc 32.2 g/dL (31.8-35.4); Mean Corpuscular Volume 96.4 fl (80-94); Mean Platelet Volume 8.5 fl (7.4-10.4); Monocytes # 0.3 K/mm3 (0.1-1.0); Neutrophils # 3.4 K/mm3 (1.8-7.8); Neutrophils % 81.9 % (37.0-80.0); Platelet Count 121 K/mm3 (142-424); Red Blood Count 4.61 M/mm3 (4.60-6.20); Red Cell Distribution Width 15.6 % (11.5-17.5); White Blood Count 4.2 K/mm3 (4.8-10.8)
[2021-06-09 09:15] LABS: Alanine Aminotransferase 16 U/L (12-78); Albumin Level 3.1 g/dl (3.5-5.0); Albumin/Globulin Ratio 1.1 (1.1-1.8); Alkaline Phosphatase 56 U/L (38-126); Anion Gap 9.2 mEq/L (5-15); Aspartate Amino Transferase 32 U/L (17-59); Bilirubin,Total 0.6 mg/dl (0.2-1.3); Blood Urea Nitrogen 13 mg/dl (9-20); Calcium 8.7 mg/dl (8.4-10.2); Carbon Dioxide 29 mmol/L (22.0-30.0); Chloride 103 mmol/L (98-107); Creatinine Clearance Estimated 95 mL/min (50-200); Estimated Glomerular Filt Rate 93 ml/min (>60); GFR (African American) 113 ML/MIN (>60); Globulin 2.8 g/dL (1.3-3.2); Glucose 195 mg/dl (74-100); Magnesium 1.7 mg/dl (1.6-2.3); Potassium 4.2 mmoL/L (3.5-5.1); Sodium 137 mmol/L (136-145); Total Protein,Serum 5.9 g/dl (6.3-8.2)
--- NOTE | 2021-06-09 10:17 | HMH.HP ---
*Admission Date: 06/08/21 *Chief complaint: SOA *History of present illness: Mr. Pizarro is a 81-year-old male who is vaccinated for Covid. Presented to the ER due to complaint of not feeling well all week. States has been more short of breath and had a cough. Has felt febrile at home along with having diarrhea. Denies any vomiting, syncope. Complains of headache and feeling weak. Currently denies chest pain. His is also sick, but mostly has gastrointestinal symptoms. On initial work-up, found to be hypoxic and positive for Covid. Patient admitted to medicine for further management of Covid pneumonia. On assessment this morning he is laying in bed supine. Stable on 2 L nasal cannula oxygen. Fair appetite but still having some loose stools. Slept well overnight. [facility] History I have reviewed the patient's past medical history: Yes Medical History: Reports:: Congestive Heart Failure, Coronary Artery Disease, Hyperlipidemia, Hypertension, Myocardial Infarction, Valvular Heart Disease Denies:: Cancer, Diabetes Mellitus Type 1, Diabetes Mellitus Type 2, MRSA *Have you ever received a pneumonia vaccine?: Yes *Have you received a flu vaccine this season?: No (just haven't made it to get it) Other Medical History: Reports: Arthritis Laterality Cases: Bilateral: Total Knee Replacement Other Surgeries: Yes: Cardiac Catheterization, Coronary Stent Amputation: No - *Social History Last grade of school completed: High school graduate Smoking Status: Former smoker Tobacco Type: cigars # Packs/Day (cigarettes): 1 #Yrs smoked (if former smoker): 15 Alcohol Intake: never Alcohol Intake Frequency:: holidays/special occasions only Substance Use Type: denies use *Occupational Status:: retired Housing: house Household Members: spouse *Travel in the last 8 weeks: None Family Hx:: No significant family history Review of Systems - Review of Systems Review of systems:: pertinent systems reviewed and negative unless documented below Meds Home Medications Medication Instructions Recorded Confirmed Type aspirin 81 mg tablet,delayed 81 mg PO DAILY 01/21/18 06/08/21 History release atorvastatin 80 mg tablet 80 mg PO HS 90 Days tab 01/21/18 06/09/21 History folic acid 1 mg tablet 1 mg PO DAILY 30 Days tab 01/21/18 06/08/21 History metoprolol tartrate 25 mg tablet 50 mg PO BID 90 Days tab 01/21/18 06/09/21 History Fluticasone Propionate [Flonase 1 spr NOSTRIL-B DAILYP PRN 04/14/18 06/08/21 History 50mcg nasal spray 16gm] Tamsulosin HCl [Flomax 0.4mg 0.4 mg PO DAILY 04/14/18 06/08/21 History capsule] metHOTREXate sodium [metHOTREXate 15 mg PO WEEKLY 04/14/18 06/08/21 History 2.5mg Tablet] Nitroglycerin [Nitrostat] 0.3 mg SL Q5MINP PRN 30 Days #100 04/15/18 06/08/21 Rx tab.subl Clopidogrel Bisulfate [Clopidogrel 75 mg PO DAILY 06/09/21 06/09/21 History 75mg Tab] Furosemide [Furosemide 40MG tAB*] 40 mg PO DAILY 06/09/21 06/09/21 History lisinopriL [Lisinopril 30mg Tablet] 30 mg PO DAILY 06/09/21 06/09/21 History Allergies Allergy/AdvReac Type Severity Reaction Status Date / Time No Known Allergies Allergy Verified 09/15/20 08:13 Exam Vital signs and Labs for Last 24 Hours: Temp Pulse Resp BP Pulse Ox 99.3 F 100 H 22 140/69 93 L 06/09/21 07:46 06/09/21 07:46 06/09/21 07:46 06/09/21 07:46 06/09/21 07:46 Laboratory Results - last 24 hr 06/08/21 13:50: SARS-CoV-2 (PCR) Detected A, Influenza A Untype (PCR) Not detected, Influenza Type B (PCR) Not detected 06/08/21 13:55: Lactate 0.9 06/08/21 13:55: WBC 3.0 L, RBC 4.94, Hgb 15.3, Hct 46.8, MCV 94.7 H, MCH 30.9, MCHC 32.7, RDW 15.6, Plt Count 123 L, MPV 8.3, Neut % (Auto) 66.2, Lymph % (Auto) 19.0, [place] % (Auto) 13.3 H, Eos % (Auto) 0.1, Baso % (Auto) 1.4, Neut # (Auto) 2.0, Lymph # (Auto) 0.6 L, [place] # (Auto) 0.4, Eos # (Auto) 0.0, Baso # (Auto) 0.0 06/08/21 13:55: Troponin I 0.02 06/08/21 13:55: NT-Pro-B Natriuret Pep 527 H 06/08/21
--- NOTE | 2021-06-09 12:55 | SW/DCPLANNER ---
PATIENT PRESENTED INTO THE ED WITH ACUTE RESPIRATORY FAILURE AND HYPOXIA. PATIENT WAS FOUND TO BE POSITIVE FOR COVID. PRIOR TO COMING TO THE HOSPITAL HE WAS RESIDING AT HOME WITH HIS HERE IN [facility].. CM WILL FOLLOW MR MACIAS THROUGH HIS ACUTE CARE STAY, WHEN PATIENT IS CLOSE TO A DISPOSITION WILL ASSIST WITH ANY NEEDS HE MAY HAVE...
--- NOTE | 2021-06-09 17:55 | PC.NURSE ---
PT IS SITTING UP IN THE CHAIR. ALERT AND ORIENTED X4. EATING AND DRINKING WELL. ROOM AIR SATURATION WAS 87%. O2 SATURATION HAS MAINTAINED 91-94% ON 2 L NC. PT HAS AMBULATED MUCH HE COULD TOLERATE AROUND THE ROOM AND TO THE BATHROOM. LUNG SOUNDS DIMINISHED. ABDOMEN LARGE/FIRM/NON TENDER WITH HYPOACTIVE BOWEL SOUNDS. WILL CONTINUE TO MONITOR.
[2021-06-10] VITALS: BP 120/70; PULSE 74; RESP 28; TEMP 36.6; O2SAT 94
[2021-06-10 04:00] VITALS: BP 124/69; PULSE 71; RESP 32; TEMP 36.6; O2SAT 91
--- NOTE | 2021-06-10 04:43 | PC.NURSE ---
pt AxOx4, in chair for part of shift, remains on 2L NC with O2 sats 91-94%, no complaints of SOA or pain this shift, has been ambulating in room and to BR
[2021-06-10 05:00] VITALS: BMI 39.6
[2021-06-10 07:28] VITALS: BP 115/51; PULSE 75; RESP 20; TEMP 36.6; O2SAT 95
[2021-06-10 08:00] VITALS: PULSE 75; RESP 20; O2SAT 95
--- NOTE | 2021-06-10 08:07 | HMH.DCSUM ---
General - General Admission date:: 06/08/21 Discharge date: 06/10/21 HPI HPI: Mr. Pizarro is a 81-year-old male who is vaccinated for Covid. Presented to the ER due to complaint of not feeling well all week. States has been more short of breath and had a cough. Has felt febrile at home along with having diarrhea. Denies any vomiting, syncope. Complains of headache and feeling weak. Currently denies chest pain. His is also sick, but mostly has gastrointestinal symptoms. On initial work-up, found to be hypoxic and positive for Covid. Patient admitted to medicine for further management of Covid pneumonia. On assessment this morning he is laying in bed supine. Stable on 2 L nasal cannula oxygen. Fair appetite but still having some loose stools. Slept well overnight. Hospital Course Hospital Course: Patient was admitted, given dexamethasone and remdesivir. Responded very nicely to dexamethasone and fluids. Aspen more comfortable. Diarrhea and GI upset resolved. Over the last 36 hours has been stable on 2 L of nasal cannula with no further oxygen requirement. Chest x-ray showed evidence of evolving viral pneumonitis pattern but no evidence of ARDS. This morning is comfortable, eating well, up in a chair, no significant dyspnea on 2 L nasal cannula. Plan will be to discharge home today on 1 week of dexamethasone, doxycycline to cover possible bacterial pathogens given the length of illness and short-term follow-up her office. He will also be on oxygen. Objective Vital signs: Temp Pulse Resp BP Pulse Ox 97.9 F 75 20 115/51 L 95 06/10/21 07:28 06/10/21 07:28 06/10/21 07:28 06/10/21 07:28 06/10/21 07:28 morbidly obese - *Routine HEENT Exam Head: Present: normocephalic Eye: Present: EOMI, PERRL ENT: Present: mucous membranes moist - *Routine Neck Exam Present: supple - *Routine Respiratory Exam Present: CTA bilaterally - *Routine Cardiovascular Exam Present: RRR - *Routine Abdominal Exam Present: soft, normoactive bowel sounds. Absent: tenderness - *Routine Extremities Exam Absent: cyanosis, clubbing, edema - *Routine Skin Exam Present: warm. Absent: rash - Detailed Eye Exam Eyelids: Bilateral normal inspection Results Labs on day of discharge: Labs from last 24 hours 06/09/21 06/09/21 08:45 08:45 WBC 4.2 L D RBC 4.61 Hgb 14.3 Hct 44.4 MCV 96.4 H MCH 31.0 MCHC 32.2 RDW 15.6 Plt Count 121 L MPV 8.5 Neut % (Auto) 81.9 H Lymph % (Auto) 10.4 [place] % (Auto) 7.0 Eos % (Auto) 0.4 Baso % (Auto) 0.3 Neut # (Auto) 3.4 Lymph # (Auto) 0.4 L [place] # (Auto) 0.3 Eos # (Auto) 0.0 Baso # (Auto) 0.0 Sodium 137 Potassium 4.2 Chloride 103 Carbon Dioxide 29 Anion Gap 9.2 BUN 13 Creatinine 0.80 Estimated Creat Clear 95 Estimated GFR 93 Est GFR ( Amer) 113 Glucose 195 H D Calcium 8.7 Magnesium 1.7 Total Bilirubin 0.6 AST 32 ALT 16 Alkaline Phosphatase 56 Total Protein 5.9 L Albumin 3.1 L D Globulin 2.8 Albumin/Globulin Ratio 1.1 DS: Diagnosis - Discharge Diagnosis (1) Pneumonia due to COVID-19 virus Status: Acute (2) Respiratory failure with hypoxia Status: Acute (3) Hypertension Status: Chronic (4) Obesity (BMI 30-39.9) Status: Chronic Discharge Plan - Patient Discharge Instructions ACTIVITY: Continue current activity DIET: continue same diet Patient Instructions: Nutrition and Hydration: [employer] Against COVID-19 - Follow up Plan Follow up with: Fran So MD [Primary Care Provider] - 06/26/21 Disposition: Home, Self-Care Condition at discharge:: Improved Home Medications: Home Medications Medication Instructions Recorded Confirmed Type aspirin 81 mg tablet,delayed 81 mg PO DAILY 01/21/18 06/08/21 History release atorvastatin 80 mg tablet 80 mg PO HS 90 Days tab 01/21/18 06/09/21 History fo
[2021-06-10 08:28] LABS: Basophils % 0.2 % (0.1-2.0); Hemoglobin 15.1 g/dL (14.1-18.0); Lymphocytes # 0.6 K/mm3 (0.7-4.5); Lymphocytes % 12.4 % (10-50); Mean Corpuscular HGB Conc 32.1 g/dL (31.8-35.4); Mean Corpuscular Hemoglobin 31.1 pg (27.0-31.2); Mean Corpuscular Volume 96.9 fl (80-94); Mean Platelet Volume 8.7 fl (7.4-10.4); Monocytes # 0.4 K/mm3 (0.1-1.0); Monocytes % 9.5 % (1.7-9.3); Neutrophils # 3.4 K/mm3 (1.8-7.8); Neutrophils % 77.8 % (37.0-80.0); Platelet Count 184 K/mm3 (142-424); Red Blood Count 4.85 M/mm3 (4.60-6.20); Red Cell Distribution Width 15.5 % (11.5-17.5); White Blood Count 4.4 K/mm3 (4.8-10.8)
[2021-06-10 09:27] LABS: Alanine Aminotransferase 17 U/L (12-78); Albumin Level 3.4 g/dl (3.5-5.0); Albumin/Globulin Ratio 1.1 (1.1-1.8); Alkaline Phosphatase 60 U/L (38-126); Anion Gap 7.8 mEq/L (5-15); Aspartate Amino Transferase 32 U/L (17-59); Bilirubin,Total 0.6 mg/dl (0.2-1.3); Blood Urea Nitrogen 14 mg/dl (9-20); Calcium 9.5 mg/dl (8.4-10.2); Carbon Dioxide 31 mmol/L (22.0-30.0); Chloride 106 mmol/L (98-107); Creatinine Clearance Estimated 95 mL/min (50-200); Estimated Glomerular Filt Rate 109 ml/min (>60); GFR (African American) 132 ML/MIN (>60); Globulin 3.2 g/dL (1.3-3.2); Glucose 140 mg/dl (74-100); Magnesium 2.1 mg/dl (1.6-2.3); Potassium 4.8 mmoL/L (3.5-5.1); Sodium 140 mmol/L (136-145); Total Protein,Serum 6.6 g/dl (6.3-8.2)
== END 2021-06-10 11:25 | disposition home or self-care (01) | DRG 177 ==
LOC: ER 14:08 → 2ND 17:09
PROVIDERS: Internal Medicine Adolescent Medicine; Admitting Provider Internal Medicine Adolescent Medicine; Emergency Provider Emergency Medicine; PCP Internal Medicine Adolescent Medicine; Visit Provider Internal Medicine Adolescent Medicine
DX: U07.1 COVID-19 (principal); J12.82 Pneumonia due to coronavirus disease 2019; J96.01 Acute respiratory failure with hypoxia; I95.9 Hypotension, unspecified; Z87.891 Personal history of nicotine dependence; Z95.5 Presence of coronary angioplasty implant and graft; I11.0 Hypertensive heart disease with heart failure; I50.9 Heart failure, unspecified; I25.10 Atherosclerotic heart disease of native coronary artery without angina pectoris; E78.5 Hyperlipidemia, unspecified; I25.2 Old myocardial infarction; E66.9 Obesity, unspecified; Z68.39 Body mass index [BMI] 39.0-39.9, adult
CPT/HCPCS: 36415; 71045; 71275; 80048; 80053; 80076; 83605; 83735; 83880; 84484; 85025; 87040; 93005; 96365; 99284; C9803; Q9967; U0003; U0005

== ENCOUNTER 2021-06-28 09:01 | Emergency (ER) | payer MEDICARE, SELFPAY ==
[2021-06-28 09:01] VITALS: BP 161/120; PULSE 90; RESP 20; TEMP 36.8; O2SAT 99; BMI 38.7
[2021-06-28 10:03] LABS: Basophils % 0.3 % (0.1-2.0); Eosinophils # 0.2 K/mm3 (0.0-0.4); Eosinophils % 1.5 % (0.1-12.0); Hematocrit 47.7 % (42.0-52.0); Hemoglobin 15.1 g/dL (14.1-18.0); Lymphocytes # 1.1 K/mm3 (0.7-4.5); Lymphocytes % 8.7 % (10-50); Mean Corpuscular HGB Conc 31.8 g/dL (31.8-35.4); Mean Corpuscular Hemoglobin 31.1 pg (27.0-31.2); Mean Corpuscular Volume 97.8 fl (80-94); Mean Platelet Volume 7.5 fl (7.4-10.4); Monocytes # 0.8 K/mm3 (0.1-1.0); Monocytes % 6.7 % (1.7-9.3); Neutrophils # 10.1 K/mm3 (1.8-7.8); Neutrophils % 82.9 % (37.0-80.0); Platelet Count 169 K/mm3 (142-424); Red Blood Count 4.88 M/mm3 (4.60-6.20); Red Cell Distribution Width 15.5 % (11.5-17.5); White Blood Count 12.2 K/mm3 (4.8-10.8)
[2021-06-28 10:13] LABS: INR 0.93 (0.9-1.1); Prothrombin Time 10.6 seconds (10.1-12.5)
--- NOTE | 2021-06-28 11:53 | HMH.EDEPIS ---
ED Disposition Clinical Impression: Epistaxis Disposition: Home, Self-Care Condition on Discharge: Good Referrals: Provider,MD Sammy [Primary Care Provider] - Miller English MD [Staff Physician] - - Critical Care Critical Care Time: No Attestation: On 06/28/21, the high probability of a clinically significant, sudden or life threatening deterioration of the following system(s) required my full and direct attention, intervention and personal management. The time I documented below is in addition to time spent performing reported procedures but includes the following listed in this critical care notation. Medical Decision Making - Heri Inquiry Pt receiving controlled substance: No Vital Signs: 06/28/21 09:01 Temperature 98.2 F Temperature Source Axillary Pulse Rate [Left Radial] 90 Respiratory Rate 20 Blood Pressure [Right Arm] 161/120 H Blood Pressure Mean [Right Arm] 133 Blood Pressure Source [Right Arm] Automatic Cuff Blood Pressure Position [Right Arm] Sitting 02 Sat by Pulse Oximetry 99 Oxygen Delivery Method Room Air - Lab Data Lab Results 06/28/21 09:43: WBC 12.2 H, RBC 4.88, Hgb 15.1, Hct 47.7, MCV 97.8 H, MCH 31.1, MCHC 31.8, RDW 15.5, Plt Count 169, MPV 7.5, Neut % (Auto) 82.9 H, Lymph % (Auto) 8.7 L, [place] % (Auto) 6.7, Eos % (Auto) 1.5, Baso % (Auto) 0.3, Neut # (Auto) 10.1 H, Lymph # (Auto) 1.1, [place] # (Auto) 0.8, Eos # (Auto) 0.2, Baso # (Auto) 0.0 06/28/21 09:43: PT 10.6, INR 0.93 Result diagrams: 06/28/21 09:43 Medical Decision Narrative: In summary, the patient is a 81-year-old male on aspirin who presents for evaluation of left-sided epistaxis. He is in no acute distress, afebrile and hemodynamic stable, nontoxic in appearance. Physical exam demonstrates comfortable appearing male small amount of active bleeding from the left nostril, no bleeding from right nostril, small amount of bleeding tracking on posterior oropharynx, remainder physical exam within normal limits. Differential diagnosis includes but is not limited to anterior versus posterior epistaxis, more posterior source of bleeding, perforation. Patient cleared clots from his nose and the bleeding was visualized to be in the middle portion of the septum. Patient was unable to tolerate balloon tamponade device in the left nostril so bilateral Rhino Rocket's were placed with hemostasis achieved. Strings were taped to the side of his face to maintain position of the Rhino Rocket. Laboratory analysis was obtained and unremarkable. He ambulated without issue here in the emergency department. Will discharge home with return precautions, recommendations for wound care as well as prescription for Augmentin and recommendations for ENT follow-up in the next 1 to 2 days for monitoring of any persistent symptoms and coordination of ongoing care needs which will include removal of the Rhino Rocket's and reevaluation. Patient communicated their understanding of discharge plan, all of his questions were answered, and he is comfortable with the disposition. At discharge, bedside nurse was attempting to clean the patient and put him back into a street close, however he became irate and refused to stay to be cleaned and left from the emergency department with all appropriate discharge information. Epistaxis HPI - General Chief complaint: Epistaxis Stated complaint: nose bleed Time Seen by Provider: 06/28/21 09:30 Mode of Arrival: EMS Limitations: No Limitations Description of Symptoms (Recalled from ER Triage Doc. by RN): Pt to ed per ems. Pt states he woke up this morning and blew his nose approx 30 mins ago. Pt states his nose immediately started bleeding and has not stopped. Pt reports taking aspirin 81mg daily. Pt denies sob, chu, or chest pain. - History of Present Illness HPI Narrative: Patient is a 81-year-old male on home aspirin with COPD on home oxygen who presents for evaluation of a nosebleed that started approximately
--- NOTE | 2021-06-28 12:08 | PC.NURSE ---
This nurse presented to pt's room to discuss d/c information and follow up. Asked pt if he would like a clean gown for d/c due to blood saturation. Pt stated he would like some things to get himself cleaned up with . This nurse laid out a clean gown, washcloths and towels for pt. Pt proceeded to say forget it, i am going to fucking leave looking like a bloody hog. This place is a joke. I thought real nurses cleaned up their patients. I am going home so my can clean me up. This nurse stated intentions of helping patient and that supplies were just being gathered prior to helping. Pt continued cursing at staff and walking to lobby. This nurse was able to have pt change soiled gown before departure.
[2021-06-28 12:23] VITALS: BP 159/90; PULSE 92; RESP 20; TEMP 36.8; O2SAT 99
== END 2021-06-28 12:20 | disposition home or self-care (01) ==
PROVIDERS: Emergency Provider Student in an Organized Health Care Education/Training Program
DX: R04.0 Epistaxis (principal); J44.9 Chronic obstructive pulmonary disease, unspecified; I50.9 Heart failure, unspecified; I25.2 Old myocardial infarction; I10 Essential (primary) hypertension; E78.5 Hyperlipidemia, unspecified; Z99.81 Dependence on supplemental oxygen; Z87.891 Personal history of nicotine dependence
CPT/HCPCS: 30905; 85025; 85610; 99282

== ENCOUNTER → 2021-10-10 10:53 | Outpatient (POV) | payer MEDICARE, SELFPAY | PROVIDERS: Visit Provider Dermatology | DX: Z00.00 Encounter for general adult medical examination without abnormal findings (principal) ==

== ENCOUNTER 2022-06-04 13:44 | Emergency (ER) | payer MEDICARE, SELFPAY ==
[2022-06-04] VITALS (8 sets, daily range): BP systolic 98–131; BP diastolic 44–87; PULSE 78–84; RESP 18; TEMP 36.4–36.8; O2SAT 93–99; BMI 40.3
--- NOTE | 2022-06-04 13:47 | CT_ITS ---
FINAL REPORT TECHNIQUE: IV contrast enhanced exam. This study was performed with techniques to keep radiation doses as low as reasonably achievable (ALARA). Individualized dose reduction techniques using automated exposure control or adjustment of mA and/or kV according to the patient's size were employed. CLINICAL HISTORY: lt flank pain FINDINGS: Abdomen: No acute density is seen within the lung bases. Cystic mass in the lower pole of left kidney with enhancing tissue peripherally. The enhancing peripheral tissue favors renal parenchyma opposed to tumor. Cystic component measures 20 mm. 20 mm anterior left renal cyst. 3 mm mid left ureteral stone causing moderate left hydronephrosis and hydroureter. Right hydronephrosis versus less likely parapelvic cyst without stone that may be due to UPJ stenosis. Tiny gallstones. Remaining solid abdominal organs are unremarkable. Cunningham-diverticulosis. No bowel obstruction is present. There is no free air. No fluid collection is seen. There is no adenopathy. Pelvis: The appendix is normal. No bowel wall thickening is present. There is no free fluid. No pelvic mass is seen. Moderate prostate enlargement. Small bilateral inguinal hernias containing fat. Mixed soft tissue and fatty nodule anterior to the proximal sigmoid may represent a small area of chronic omental infarct. IMPRESSION: Left-sided urinary tract obstruction secondary to mid ureteral stone. Possible right UPJ obstruction. CT with delayed imaging could help confirm. Left lower pole renal mass with possible solid component. Recommend six-month follow-up to ensure stability. Reviewed, Interpreted and Dictated by Jessenia Machado MD Transcribed by Yash Aguilar Authenticated and . [facility]
--- NOTE | 2022-06-04 13:47 | HMH.EDGENADL ---
Discharge Plan Disposition Patient Disposition: Home, Self-Care Condition: Good Prescriptions Prescriptions: New hydrocodone-acetaminophen 5-325 mg tablet 1 tab PO Q6H PRN (Reason: pain) Qty: 14 0RF ibuprofen 600 mg tablet 600 mg PO Q6H PRN (Reason: fever) Qty: 30 0RF No Action folic acid 1 mg tablet 1 mg PO DAILY 30 Days atorvastatin 80 mg tablet 80 mg PO HS 90 Days metoprolol tartrate 25 mg tablet 50 mg PO DAILY 90 Days methotrexate sodium 2.5 MG tablet 15 mg PO WEEKLY Label Comments: 6 TABLETS BY MOUTH WEEKLY tamsulosin 0.4 MG capsule 0.4 mg PO DAILY Label Comments: take 1 capsule by mouth once daily fluticasone propionate 120 SPR/BOT bottle 1 spr NOSTRIL-B DAILYP PRN (Reason: Allergy symptoms) nitroglycerin 0.3 MG tablet, sublingual 0.3 mg SL Q5MINP PRN (Reason: Chest Pain) 30 Days Qty: 100 0RF furosemide 40 MG tablet 40 mg PO DAILY clopidogrel 75 MG tablet 75 mg PO DAILY Referrals Follow up/Referrals: Fran So MD [Primary Care Provider] - See instructions Cam Molina MD [Staff Physician] - See instructions Clinical Impressions Clinical Impression: Nephrolithiasis Instructions Patient Instructions: DI for Kidney Stones, Ibuprofen, Hydrocodone Discharge ED Provider: Mookie Chen General Adult HPI General Chief complaint: PAIN Stated complaint: left side pain Time Seen by Provider: 06/04/22 13:48 Mode of Arrival: Ambulatory History of Present Illness HPI narrative: 82 yo/M, hx of CAD, HTN, presents with c/o left flank pain onset this AM, constant, moderate. Reports hx nephrolithiasis and is on flomax, denies dysuria, hematuria, N/V, fever chills or other symptoms. No palliative factors and exacerbated by palpation of the area. States he took hydrocodone with minimal relief. Related Data Home Medications Medication Instructions Recorded Confirmed atorvastatin 80 mg tablet 80 mg PO HS Cholesterol 90 days 01/21/18 06/04/22 folic acid 1 mg tablet 1 mg PO DAILY Supplement 30 days 01/21/18 06/04/22 metoprolol tartrate 25 mg tablet 50 mg PO DAILY Hypertension 90 days 01/21/18 06/04/22 fluticasone propionate 50 1 spr NOSTRIL-B DAILYP PRN Allergy 04/14/18 06/04/22 mcg/actuation nasal symptoms spray,suspension methotrexate sodium 2.5 mg tablet 15 mg PO WEEKLY psoriasis 04/14/18 06/04/22 tamsulosin 0.4 mg capsule 0.4 mg PO DAILY Prostate 04/14/18 06/04/22 hyperplasia clopidogrel 75 mg tablet 75 mg PO DAILY antiplatelet 06/09/21 06/04/22 furosemide 40 mg tablet 40 mg PO DAILY DIURETIC 06/09/21 06/04/22 Previous Rx's Medication Instructions Recorded nitroglycerin 0.3 mg sublingual 0.3 mg SL Q5MINP PRN Chest Pain 30 04/15/18 tablet days ##100 hydrocodone 5 mg-acetaminophen 325 1 tab PO Q6H PRN pain #14 tabs 06/04/22 mg tablet ibuprofen 600 mg tablet 600 mg PO Q6H PRN fever #30 tabs 06/04/22 Allergies Allergy/AdvReac Type Severity Reaction Status Date / Time No Known Allergies Allergy Verified 07/03/21 13:47 PFS PFS Medical History (Updated 06/04/22 @ 16:39 by Mookie Chen MD) Diabetes Hypertension Kidney stones Surgical History (Updated 06/04/22 @ 15:26 by Olivia Mohamud RN) History of bilateral knee replacement History of heart artery stent Hx of CABG Social History Smoking Status: Former smoker pack-years: 15 alcohol intake: never substance use type: denies use current occupational status: retired Travel in the last 8 weeks: None household members: spouse housing: house caffeine: No ROS Obtained: Yes Systems reviewed as appropriate & no additional complaints except as documented Constitutional Constitutional: Reports system reviewed and no additional complaints, except as documented Eyes Eyes: Reports system reviewed and no additional complaints, except as documented ENT Ears, Nose,
--- NOTE | 2022-06-04 13:56 | PC.NURSE ---
PT UNABLE TO URINATE AT THIS TIME
[2022-06-04 14:25] LABS: Chloride 99 mmol/L (98-107); Potassium 4.6 mmoL/L (3.5-5.1); Sodium 142 mmol/L (136-145)
[2022-06-04 14:28] LABS: Alanine Aminotransferase 28 U/L (12-78); Albumin Level 4.1 g/dl (3.5-5.0); Albumin/Globulin Ratio 1.5 (1.1-1.8); Alkaline Phosphatase 92 U/L (38-126); Anion Gap 13.6 mEq/L (5-15); Aspartate Amino Transferase 27 U/L (17-59); Bilirubin,Total 0.5 mg/dl (0.2-1.3); Blood Urea Nitrogen 22 mg/dl (9-20); Carbon Dioxide 34 mmol/L (22.0-30.0); Creatinine Clearance Estimated 94 mL/min (50-200); Estimated Glomerular Filt Rate 72 ml/min (>60); GFR (African American) 87 ML/MIN (>60); Globulin 2.7 g/dL (1.3-3.2); Glucose 127 mg/dl (74-100); Lipase 59 U/L (23-300); Total Protein,Serum 6.8 g/dl (6.3-8.2)
[2022-06-04 14:31] LABS: Basophils # 0.1 K/mm3 (0-0.2); Basophils % 0.7 % (0.1-2.0); Eosinophils # 0.1 K/mm3 (0.0-0.4); Eosinophils % 1.3 % (0.1-12.0); Hemoglobin 14.3 g/dL (14.1-18.0); Lymphocytes # 1.4 K/mm3 (0.7-4.5); Lymphocytes % 15.9 % (10-50); Mean Corpuscular HGB Conc 32.5 g/dL (31.8-35.4); Mean Corpuscular Hemoglobin 31.5 pg (27.0-31.2); Mean Corpuscular Volume 96.9 fl (80-94); Mean Platelet Volume 7.8 fl (7.4-10.4); Monocytes # 0.5 K/mm3 (0.1-1.0); Monocytes % 6.1 % (1.7-9.3); Neutrophils # 6.5 K/mm3 (1.8-7.8); Neutrophils % 75.9 % (37.0-80.0); Platelet Count 210 K/mm3 (142-424); Red Blood Count 4.54 M/mm3 (4.60-6.20); Red Cell Distribution Width 14.9 % (11.5-17.5); White Blood Count 8.6 K/mm3 (4.8-10.8)
[2022-06-04 14:33] LABS: Lactic Acid 1.6 mmol/L (0.7-2.1)
--- NOTE | 2022-06-04 14:46 | PC.NURSE ---
pt to CT via wheelchair
--- NOTE | 2022-06-04 15:08 | PC.NURSE ---
checked on pt at this time, pt reports he is pain free at this time, requested something to drink (okayed per ER MD). Call light within reach, offered blanket, pt declined. will continue to monitor
--- NOTE | 2022-06-04 15:37 | PC.NURSE ---
pt attempting to use urinal to provide urine specimen
[2022-06-04 15:49] LABS: Microscopic, Urine URINE MICROSCOPIC (MICROSCOPIC)
[2022-06-04 15:50] LABS: Appearance,Urine CLEAR (Clear); Bilirubin,Urine Negative (Negative); Blood, Urine 3+ (Negative); Color,Urine YELLOW (Yellow); Glucose,Urine (UA) Negative (Negative); Ketones,Urine Negative (Negative); Leukocyte Esterase,Urine Negative (Negative); Nitrate,Urine Negative (Negative); PH,Urine 5.5 (5.0-8.5); Protein,Urine Negative (Negative); Urobilinogen,Urine 0.2 EU/dl (0.2)
--- NOTE | 2022-06-04 16:22 | PC.NURSE ---
contacted lab to check on status of ua results, samra states its just finished on the analyzer so will be resulted soon. Notified RISHABH TALBERT
--- NOTE | 2022-06-04 16:33 | PC.NURSE ---
checked on pt at this time. Updated pt we are just waiting on the microscopic part of ua results, pt verbalized understanding. Call light within reach
[2022-06-04 16:44] LABS: Squamous Epithelial Cell,Urine Occasional #/hpf (0-5)
--- NOTE | 2022-06-04 16:46 | PC.NURSE ---
[facility] STOPPED FOR TRANSPORT , RECEIVING RN AWARE
== END 2022-06-04 16:55 | disposition home or self-care (01) ==
PROVIDERS: Emergency Provider Emergency Medicine; PCP Internal Medicine Adolescent Medicine
DX: N13.2 Hydronephrosis with renal and ureteral calculous obstruction (principal); R07.9 Chest pain, unspecified; R50.9 Fever, unspecified; I10 Essential (primary) hypertension; E11.9 Type 2 diabetes mellitus without complications; Z79.02 Long term (current) use of antithrombotics/antiplatelets; Z79.1 Long term (current) use of non-steroidal anti-inflammatories (NSAID); Z79.51 Long term (current) use of inhaled steroids; Z95.1 Presence of aortocoronary bypass graft; Z95.5 Presence of coronary angioplasty implant and graft; Z87.891 Personal history of nicotine dependence; Z96.653 Presence of artificial knee joint, bilateral
CPT/HCPCS: 74177; 80053; 81001; 83605; 83690; 85025; 99285; J2405

== ENCOUNTER 2022-08-17 11:11 | Emergency (ER) | payer MEDICARE, SELFPAY ==
[2022-08-17] VITALS (7 sets, daily range): BP systolic 105–140; BP diastolic 54–85; PULSE 70–88; RESP 18–20; TEMP 36.7–36.8; O2SAT 90–96; BMI 39.5
--- NOTE | 2022-08-17 11:15 | PC.NURSE ---
PT TO BR TO PROVIDE URINE SPECIMEN
--- NOTE | 2022-08-17 11:23 | CT_ITS ---
FINAL REPORT TECHNIQUE: Axial images through the abdomen and pelvis were performed without contrast. This study was performed with techniques to keep radiation doses as low as reasonably achievable, (ALARA). Individualized dose reduction techniques using automated exposure control or adjustment of mA and/or kV according to the patient's size were employed. CLINICAL HISTORY: R back pain, dysuria, stone protocol COMPARISON: 06/04/2022 FINDINGS: ABDOMEN: There is mild scarring in the lung bases. The heart size is normal. Several small gallstones are identified. The liver shows a mild irregular contour of uncertain significance, cirrhosis is not excluded. The spleen is normal. No adrenal mass is identified. The aorta is normal in caliber. There is no significant free fluid or adenopathy. There is mild bilateral hydronephrosis. There is bilateral perinephric stranding, may represent edema or bilateral pyelonephritis. There is a mass in the posterior right kidney measuring 19 mm most worrisome for renal neoplasm. There is a 24 mm mass in the lower pole of the left kidney with a possible solid component also worrisome for neoplasm. Additionally, there is a small anterior left renal mass which cannot be accurately characterized without contrast, could represent a cyst. PELVIS: The appendix is unremarkable. There is descending and sigmoid diverticulosis without evidence of diverticulitis. The prostate is moderately enlarged. There is mild bladder wall thickening. There are bilateral inguinal hernias containing fat. There is no significant free fluid or adenopathy. IMPRESSION: Mass in the posterior right kidney most worrisome for neoplasm. Possible neoplasm in the left kidney. Bilateral perinephric stranding, may represent edema or bilateral pyelonephritis. Possible cirrhosis. Bilateral hydronephrosis. Reviewed, Interpreted and Dictated by Jason Pat III, MD Transcribed by Bernadine Briceno Authenticated and . [facility]
--- NOTE | 2022-08-17 11:26 | HMH.EDGENADL ---
Discharge Plan Disposition Patient Disposition: Home, Self-Care Condition: Fair Chief Complaint: Back Pain/Injury Prescriptions Prescriptions: No Action folic acid 1 mg tablet 1 mg PO DAILY 30 Days atorvastatin 80 mg tablet 80 mg PO HS 90 Days metoprolol tartrate 25 mg tablet 50 mg PO DAILY 90 Days methotrexate sodium 2.5 MG tablet 15 mg PO WEEKLY Label Comments: 6 TABLETS BY MOUTH WEEKLY tamsulosin 0.4 MG capsule 0.4 mg PO DAILY Label Comments: take 1 capsule by mouth once daily fluticasone propionate 120 SPR/BOT bottle 1 spr NOSTRIL-B DAILYP PRN (Reason: Allergy symptoms) nitroglycerin 0.3 MG tablet, sublingual 0.3 mg SL Q5MINP PRN (Reason: Chest Pain) 30 Days Qty: 100 0RF furosemide 40 MG tablet 40 mg PO DAILY clopidogrel 75 MG tablet 75 mg PO DAILY hydrocodone-acetaminophen 5-325 mg tablet 1 tab PO Q6H PRN (Reason: pain) Qty: 14 0RF ibuprofen 600 mg tablet 600 mg PO Q6H PRN (Reason: fever) Qty: 30 0RF Referrals Follow up/Referrals: Fran So MD [Primary Care Provider] - See instructions Activity Restrictions/Add. Instructions Additional Instructions/Restrictions: At this point it was felt you are safe to be discharged home. If new or worsening symptoms please do not hesitate to return the emergency department. Please take medication as prescribed. Please follow-up with internal medicine, they should contact you for an appointment. Clinical Impressions Clinical Impression: Bilateral kidney masses Instructions Patient Instructions: DI for Low Back Pain Discharge ED Provider: Wes Valencia General Adult HPI General Chief complaint: Back Pain/Injury Stated complaint: back pain, no accident Time Seen by Provider: 08/17/22 11:26 History of Present Illness HPI narrative: Patient is an 82-year-old male with past medical history of hypertension, previous nephrolithiasis, hyperlipidemia who presents emergency department for evaluation of back pain. Onset was acute, currently 1 week ago, right lumbar paraspinal with associated dysuria. No vomiting. Symptoms are moderate to severe in intensity. Worse with movement, episodic. Patient denies trauma, exertional onset. Patient denies chest pain, abdominal pain, shortness of breath, acute rashes or arthralgias. No other acute complaints at this time Related Data Home Medications Medication Instructions Recorded Confirmed atorvastatin 80 mg tablet 80 mg PO HS Cholesterol 90 days 01/21/18 06/04/22 folic acid 1 mg tablet 1 mg PO DAILY Supplement 30 days 01/21/18 06/04/22 metoprolol tartrate 25 mg tablet 50 mg PO DAILY Hypertension 90 days 01/21/18 06/04/22 fluticasone propionate 50 1 spr NOSTRIL-B DAILYP PRN Allergy 04/14/18 06/04/22 mcg/actuation nasal symptoms spray,suspension methotrexate sodium 2.5 mg tablet 15 mg PO WEEKLY psoriasis 04/14/18 06/04/22 tamsulosin 0.4 mg capsule 0.4 mg PO DAILY Prostate 04/14/18 06/04/22 hyperplasia clopidogrel 75 mg tablet 75 mg PO DAILY antiplatelet 06/09/21 06/04/22 furosemide 40 mg tablet 40 mg PO DAILY DIURETIC 06/09/21 06/04/22 Previous Rx's Medication Instructions Recorded nitroglycerin 0.3 mg sublingual 0.3 mg SL Q5MINP PRN Chest Pain 30 04/15/18 tablet days ##100 hydrocodone 5 mg-acetaminophen 325 1 tab PO Q6H PRN pain #14 tabs 06/04/22 mg tablet ibuprofen 600 mg tablet 600 mg PO Q6H PRN fever #30 tabs 06/04/22 Allergies Allergy/AdvReac Type Severity Reaction Status Date / Time No Known Allergies Allergy Verified 07/03/21 13:47 [facility] Disclaimer: The information contained in this section may have been updated after the patient was seen, as this information can be updated by other users. Medical History (Updated 08/17/22 @ 13:35 by Wes Valencia MD) Diabetes Hypertension Kidney stones Surgical History History of bilateral kn
[2022-08-17 11:30] LABS: Microscopic, Urine URINE MICROSCOPIC (MICROSCOPIC)
[2022-08-17 11:32] LABS: Appearance,Urine CLEAR (Clear); Bilirubin,Urine Negative (Negative); Blood, Urine Negative (Negative); Color,Urine YELLOW (Yellow); Glucose,Urine (UA) Negative (Negative); Ketones,Urine Negative (Negative); Leukocyte Esterase,Urine Negative (Negative); Nitrate,Urine Negative (Negative); Protein,Urine Negative (Negative); Urobilinogen,Urine 0.2 EU/dl (0.2)
--- NOTE | 2022-08-17 11:38 | PC.NURSE ---
PT GOING TO CT
[2022-08-17 11:43] LABS: Basophils # 0.1 K/mm3 (0-0.2); Basophils % 1.4 % (0.1-2.0); Eosinophils # 0.3 K/mm3 (0.0-0.4); Eosinophils % 3.2 % (0.1-12.0); Hematocrit 45.6 % (42.0-52.0); Hemoglobin 14.2 g/dL (14.1-18.0); Lymphocytes # 1.4 K/mm3 (0.7-4.5); Lymphocytes % 17.9 % (10-50); Mean Corpuscular HGB Conc 31.2 g/dL (31.8-35.4); Mean Corpuscular Hemoglobin 30.4 pg (27.0-31.2); Mean Corpuscular Volume 97.4 fl (80-94); Mean Platelet Volume 7.4 fl (7.4-10.4); Monocytes # 0.7 K/mm3 (0.1-1.0); Monocytes % 8.3 % (1.7-9.3); Neutrophils # 5.5 K/mm3 (1.8-7.8); Neutrophils % 69.2 % (37.0-80.0); Platelet Count 206 K/mm3 (142-424); Red Blood Count 4.68 M/mm3 (4.60-6.20); Red Cell Distribution Width 15.3 % (11.5-17.5)
[2022-08-17 11:44] LABS: Bacteria,Urine Trace /lpf; Squamous Epithelial Cell,Urine Occasional #/hpf (0-5)
[2022-08-17 11:49] LABS: Chloride 104 mmol/L (98-107); Potassium 4.6 mmoL/L (3.5-5.1); Sodium 140 mmol/L (136-145)
--- NOTE | 2022-08-17 11:50 | PC.NURSE ---
PT RETURNED FROM CT
[2022-08-17 11:51] LABS: Alanine Aminotransferase 30 U/L (12-78); Aspartate Amino Transferase 30 U/L (17-59); Blood Urea Nitrogen 15 mg/dl (9-20); Creatinine Clearance Estimated 93 mL/min (50-200); Estimated Glomerular Filt Rate 93 ml/min (>60); GFR (African American) 113 ML/MIN (>60)
[2022-08-17 11:52] LABS: Albumin Level 3.9 g/dl (3.5-5.0); Albumin/Globulin Ratio 1.5 (1.1-1.8); Alkaline Phosphatase 86 U/L (38-126); Anion Gap 8.6 mEq/L (5-15); Bilirubin,Total 0.5 mg/dl (0.2-1.3); Calcium 9.9 mg/dl (8.4-10.2); Carbon Dioxide 32 mmol/L (22.0-30.0); Globulin 2.6 g/dL (1.3-3.2); Glucose 108 mg/dl (74-100); Total Protein,Serum 6.5 g/dl (6.3-8.2)
--- NOTE | 2022-08-17 12:30 | PC.NURSE ---
PT SITTING UP ON SIDE OF BED, PT DENIES ANY PAIN AT THIS TIME PT UPDATED THAT WE ARE WAITING ON CT READING
--- NOTE | 2022-08-17 14:20 | PC.NURSE ---
PT HAS AN APPT WITH DR MC SATURDAY AT 10AM . MESSAGE LEFT WITH ON HIS TIME AND DAY
== END 2022-08-17 13:45 | disposition home or self-care (01) ==
PROVIDERS: Emergency Provider Emergency Medicine; PCP Internal Medicine Adolescent Medicine
DX: N28.89 Other specified disorders of kidney and ureter (principal); E11.9 Type 2 diabetes mellitus without complications; I10 Essential (primary) hypertension; Z95.1 Presence of aortocoronary bypass graft; Z87.442 Personal history of urinary calculi
CPT/HCPCS: 74176; 80053; 81001; 85025; 96365; 96375; 99284

== ENCOUNTER → 2022-09-05 08:30 | Outpatient (CLI) | payer MEDICARE, SELFPAY ==
--- NOTE | 2022-09-05 08:38 | CT_ITS ---
FINAL REPORT CLINICAL HISTORY: RENAL MASS COMPARISON: August 17, 2022 FINDINGS: CT ABDOMEN with and without: PROCEDURE: Axial images were obtained from the lung base to the iliac crest by computed tomography before and after the administration of contrast. This study was performed with techniques to keep radiation doses as low as reasonably achievable (ALARA). Individualized dose reduction techniques using automated exposure control or adjustment of mA and/or kV according to the patient's size were employed. ABDOMEN: There is mild scarring in the lung bases. There is a small right pleural effusion. The heart is normal in size. The liver is normal. There is a stone or stones in the gallbladder. The spleen is normal. There is mild bilateral adrenal gland enlargement favoring hyperplasia. The pancreas is normal. There is an 18 mm enhancing mass in the posterior right kidney consistent with renal neoplasm and likely renal cell carcinoma. A 19 mm mass in the anterior left kidney is consistent with a cyst. There is a 24 mm mass in the posterior left kidney with a solid enhancing component laterally most worrisome for neoplasm. There are bilateral renal parapelvic cysts. The renal veins are normal. The aorta is normal in caliber. There is no free fluid or adenopathy. There is diverticulosis of the descending colon. IMPRESSION: Posterior right renal mass consistent with renal neoplasm and likely renal cell carcinoma. Posterior left renal mass with a solid enhancing component is most worrisome for neoplasm. Anterior left renal cyst. Bilateral renal parapelvic cysts. Renal veins are normal. No adenopathy. Cholelithiasis. Reviewed, Interpreted and Dictated by Jason Pat III, MD Transcribed by Yash Aguilar Authenticated and [facility]
== END ==
PROVIDERS: PCP Internal Medicine Adolescent Medicine; Visit Provider Urology
DX: N28.89 Other specified disorders of kidney and ureter (principal)
CPT/HCPCS: 74170; Q9967

== ENCOUNTER → 2022-11-06 13:55 | Outpatient (POV) | payer MEDICARE, SELFPAY | PROVIDERS: Visit Provider Dermatology | DX: Z00.00 Encounter for general adult medical examination without abnormal findings (principal) ==

== ENCOUNTER → 2023-03-04 09:09 | Outpatient (CLI) | payer MEDICARE, SELFPAY ==
--- NOTE | 2023-03-04 09:23 | CT_ITS ---
FINAL REPORT TECHNIQUE: Axial CT images of the abdomen and pelvis were obtained before and after the administration of IV contrast. This study was performed with techniques to keep radiation doses as low as reasonably achievable (ALARA). Individualized dose reduction techniques using automated exposure control or adjustment of mA and/or kV according to the patient''s size were employed. CLINICAL HISTORY: RENAL MASS COMPARISON: 09/05/2022 FINDINGS: Abdomen: There is atelectasis and scarring at the lung bases. Ground-glass opacities may represent edema. The heart is normal in size. The liver has an unremarkable appearance, without evidence of mass or biliary duct dilatation. There are small gallstones. The spleen is unremarkable. There is mild bilateral adrenal enlargement, favor hyperplasia. The pancreas has an unremarkable appearance. There are bilateral renal parapelvic cysts. A contrast enhancing mass is seen in the posterior right kidney measuring 22 mm, previously measured 18 mm. Findings likely represent renal cell carcinoma. There is a 22 mm anterior left renal mass favored represent a cyst which is stable. There is also a 25 mm posterior left renal mass with a solid component which previously measured 23 mm. Findings are most worrisome for neoplasm. The aorta is normal in caliber. There is no free fluid or adenopathy. No mass or abnormal fluid collection is seen. Precontrast images demonstrate no evidence of nephrolithiasis. Pelvis: The appendix is normal. There is descending and sigmoid diverticulosis without evidence of diverticulitis. There are bilateral inguinal hernias containing fat and dilated veins. The urinary bladder is unremarkable. No inflammatory process is seen. There is no evidence of mass or adenopathy. There is no evidence of bowel obstruction. No bony mass is seen. IMPRESSION: Slight increase in right renal mass and stable left renal mass both worrisome for renal neoplasm. Bilateral inguinal hernias containing dilated veins. Reviewed, Interpreted and Dictated by Jason Pat III, MD Transcribed by Cayla Kim Authenticated and [facility]
[2023-03-04 09:58] LABS: Blood Urea Nitrogen 17 mg/dl (9-20); Estimated Glomerular Filt Rate 93 ml/min (>60); GFR (African American) 113 ML/MIN (>60)
== END ==
PROVIDERS: PCP Internal Medicine Adolescent Medicine; Visit Provider Urology
DX: N28.89 Other specified disorders of kidney and ureter (principal)
CPT/HCPCS: 36415; 74178; 82565; 84520; Q9967

== ENCOUNTER 2023-09-01 01:36 | Inpatient (IN) | payer MEDICARE, SELFPAY ==
[2023-09-01] VITALS (14 sets, daily range): BP systolic 102–128; BP diastolic 49–79; PULSE 68–89; RESP 18–35; TEMP 36.6–36.9; O2SAT 83–95; BMI 41.5; BMI 41.9
--- NOTE | 2023-09-01 01:39 | PC.NURSE ---
in room talking with patient at this time.
--- NOTE | 2023-09-01 01:42 | ECG_ITS ---
APPROVED REPORT Exam: Resting ECG HR:74 bpm ECG Measurements Heart Rate 74 AXES RI 133 P 66 QRSd 104 QRS 47 QT 378 T 33 QTc 405 Conclusion SINUS RHYTHM POSSIBLE RIGHT VENTRICULAR CONDUCTION DELAY [RSR (QR) IN V1/V2] ABNORMAL ECG UNCONFIRMED REPORT Electronically signed by : Fran So MD 09/04/2023 09:07:42
--- NOTE | 2023-09-01 01:43 | XR_ITS ---
PROCEDURE INFORMATION: Exam: XR Chest Exam date and time: 09/01/2023 1:55 AM Age: 83 years old Clinical indication: Shortness of breath; Additional info: SOB TECHNIQUE: Imaging protocol: Radiologic exam of the chest. Views: 1 view. COMPARISON: CT ANGIO CHEST PE PROTOCOL 06/08/2021 3:42 PM FINDINGS: Lungs: No evidence of acute pulmonary disease or infiltrates; lung garcia appear clear. Pleural spaces: No evidence of pleural effusion, pneumothorax, or pleural thickening in the visualized pleural spaces. Heart/Mediastinum: Stable cardiac and mediastinal contours. Bones/joints: The patient is status post median sternotomy. IMPRESSION: No dense parenchymal consolidation, pleural effusion, or pneumothorax.
[2023-09-01 01:52] LABS: Coronavirus 19, PCR Not Detected (NotDetected); Influenza B, PCR Not Detected (NotDetected)
[2023-09-01] MEDS: ACETAMINOPHEN 500MG TAB 1000 MG PO (01:55)
[2023-09-01 02:00] LABS: VBG Base Excess 5.4 mmol/L (-2.4-2.3); VBG HCO3 31.7 mmol/L (23-30); VBG Oxygen Saturation 78.7 % (50-70); VBG PCO2 65.5 mmol/L (35-51); VBG PO2 46.3 mmol/L (28-40); VBG Total CO2 33.7 mmol/L (23-27)
[2023-09-01] MEDS: IPRATROPIUM/ALBUTEROL 3 ML NEB 9 ML IH (02:00)
--- NOTE | 2023-09-01 02:05 | PC.NURSE ---
RAD at bedside at this time.
[2023-09-01 02:07] LABS: Basophils % 0.3 % (0.1-2.0); Eosinophils % 0.3 % (0.1-12.0); Hematocrit 43.1 % (42.0-52.0); Hemoglobin 13.7 g/dL (14.1-18.0); Lymphocytes % 16.7 % (10-50); Mean Corpuscular HGB Conc 31.9 g/dL (31.8-35.4); Mean Corpuscular Hemoglobin 31.4 pg (27.0-31.2); Mean Corpuscular Volume 98.4 fl (80-94); Mean Platelet Volume 8.2 fl (7.4-10.4); Monocytes # 0.6 K/mm3 (0.1-1.0); Monocytes % 10.8 % (1.7-9.3); Neutrophils # 4.3 K/mm3 (1.8-7.8); Platelet Count 177 K/mm3 (142-424); Red Blood Count 4.38 M/mm3 (4.60-6.20); Red Cell Distribution Width 14.6 % (11.5-17.5)
[2023-09-01 02:13] LABS: Influenza A, PCR Detected (NotDetected)
[2023-09-01 02:18] LABS: Alanine Aminotransferase 24 U/L (12-78); Alkaline Phosphatase 70 U/L (38-126); Aspartate Amino Transferase 32 U/L (17-59); Bilirubin,Total 0.5 mg/dl (0.2-1.3); Blood Urea Nitrogen 26 mg/dl (9-20); Calcium 8.9 mg/dl (8.4-10.2); Carbon Dioxide 36 mmol/L (22.0-30.0); Chloride 97 mmol/L (98-107); Creatinine Clearance Estimated 50 mL/min (50-200); Estimated Glomerular Filt Rate 81 ml/min (>60); GFR (African American) 98 ML/MIN (>60); Glucose 141 mg/dl (74-100); Magnesium 2.1 mg/dl (1.6-2.3)
[2023-09-01 02:19] LABS: Albumin Level 3.8 g/dl (3.5-5.0); Albumin/Globulin Ratio 1.3 (1.1-1.8); Anion Gap 7.6 mEq/L (5-15); Globulin 2.9 g/dL (1.3-3.2); Lactic Acid 1.6 mmol/L (0.7-2.1); Potassium 4.6 mmoL/L (3.5-5.1); Sodium 136 mmol/L (136-145); Total Protein,Serum 6.7 g/dl (6.3-8.2)
[2023-09-01 02:30] LABS: Troponin I 0.03 ng/ml (0.00-0.034)
--- NOTE | 2023-09-01 02:33 | CT_ITS ---
PROCEDURE INFORMATION: Exam: CT Head Without And With Contrast Exam date and time: 09/01/2023 2:55 AM Age: 83 years old Clinical indication: Other: Hallucinations; Additional info: New hallucinations, HX renal mass TECHNIQUE: Imaging protocol: Computed tomography of the head without and with contrast. Radiation optimization: All CT scans at this facility use at least one of these dose optimization techniques: automated exposure control; mA and/or kV adjustment per patient size (includes targeted exams where dose is matched to clinical indication); or iterative reconstruction. Contrast material: ISOVUE; Contrast volume: 75 ml; Contrast route: IV; REPORTING DATA: Count of CT and Cardiac NM exams in prior 12 months: This patient has received 2 known CTs and 0 known cardiac nuclear medicine studies in the 12 months prior to the current study. COMPARISON: 1. HEADWO CT head/brain wo con 04/14/2018 12:[address] cervical spine wo con 04/14/2018 12:13 PM FINDINGS: Brain: The brain parenchyma appears normal for an elderly patient, with no evidence of acute ischemia, hemorrhage, or masses. The greene-white matter differentiation is preserved. Mild periventricular white matter hypodensities are consistent with chronic small vessel ischemic changes, which are often seen in elderly patients and are not indicative of acute pathology. There is a 1.7 x 1.3 cm avidly enhancing extra-axial left frontal lesion which has been present since at least April 14, 2018 and is compatible with a meningioma. Cerebral ventricles: Ventricles and sulci are consistent with patient age, showing mild age-related atrophy but no significant enlargement. Paranasal sinuses: Polypoid disease versus retention cyst in the right maxillary sinus. There are scattered areas of sinus mucosal thickening. The orbits and paranasal sinuses are free of marked disease. No opacifications are observed in the visible sinus cavities. Mastoid air cells: Visualized mastoid air cells are well aerated. Bones/joints: The cranial bones are intact with no signs of fractures or lytic lesions. Soft tissues: Unremarkable. Other findings: Motion artifact mildly limits evaluation. IMPRESSION: 1. In this patient, the head CT reveals no evidence of acute intracranial pathology. 2. There is a 1.7 x 1.3 cm avidly enhancing extra-axial left frontal lesion which has been present since at least April 14, 2018 and is compatible with a meningioma.
--- NOTE | 2023-09-01 02:33 | CT_ITS ---
PROCEDURE INFORMATION: Exam: CTA Chest With Contrast Exam date and time: 09/01/2023 3:00 AM Age: 83 years old Clinical indication: Shortness of breath; Additional info: Hypoxia, flu, abnormal cxr TECHNIQUE: Imaging protocol: Computed tomographic angiography of the chest with contrast. Exam focused on the arteries. 3D rendering (Not supervised by radiologist): MIP and/or 3D reconstructed images were created by the technologist. Radiation optimization: All CT scans at this facility use at least one of these dose optimization techniques: automated exposure control; mA and/or kV adjustment per patient size (includes targeted exams where dose is matched to clinical indication); or iterative reconstruction. Contrast material: ISOVUE; Contrast volume: 75 ml; Contrast route: INTRAVENOUS (IV); REPORTING DATA: Count of CT and Cardiac NM exams in prior 12 months: This patient has received 2 known CTs and 0 known cardiac nuclear medicine studies in the 12 months prior to the current study. COMPARISON: 1. CT ANGIO CHEST PE PROTOCOL 06/08/2021 3:42 PM 2. CR XR CHEST PORTABLE 09/01/2023 1:55 AM 3. CR XR CHEST PORTABLE 06/08/2021 2:18 PM FINDINGS: Pulmonary arteries: There is dilation of the main pulmonary artery as well as the major branch pulmonary arteries. This may reflect underlying pulmonary hypertension. There is fair opacification of the pulmonary arterial tree. No central pulmonary arterial filling defect is seen. Aorta: There is atherosclerotic disease of the visualized aorta and its major branch vessels. Other arteries: Subsegmental vessels are not well evaluated due to contrast timing. Lungs: Evaluation for small pulmonary nodules is precluded by patient condition. Fleischner Society guidelines are n/a. Scattered areas of bronchial wall thickening which are likely chronic inflammatory. A few areas of subpleural reticulation are noted, nonspecific. Parenchymal consolidation in the right upper lobe and left upper lobe which could reflect atelectatic change, correlate with any concern for infection. Pleural spaces: Unremarkable. No pneumothorax. No pleural effusion. Heart: Unremarkable. No cardiomegaly. No pericardial effusion. Coronary arteries: There is moderate coronary atherosclerotic disease/calcification although evaluation is limited secondary to the non gated nature of the study. Lymph nodes: Unremarkable. No enlarged lymph nodes. Kidneys and ureters: Partially visualized nephrolithiasis versus excreted contrast. Bones/joints: There is exaggeration of the spinal curvature. The patient is status post median sternotomy. There is diffuse degenerative disease of the visualized osseous structures. Soft tissues: There is bilateral gynecomastia. Other findings: Motion artifact mildly limits evaluation. IMPRESSION: 1. Findings which suggest underlying pulmonary arterial hypertension. 2. No central pulmonary arterial filling defect is seen. Subsegmental vessels are not well evaluated due to contrast timing. 3. Parenchymal consolidation in the right upper lobe and left upper lobe which could reflect atelectatic change, correlate with any concern for infection.
[2023-09-01] MEDS: CEFTRIAXONE 1 GM 1 GM in 0.9 % SODIUM CHLORIDE 50 ML IV ×3 (02:35→16:41)
[2023-09-01 02:38] LABS: NT Pro Brain Natriuretic Pep. 3230 pg/mL (0-450)
[2023-09-01] MEDS: VANCOMYCIN CONSULT REQUEST 1 EACH NOTAPPLIC (02:39)
--- NOTE | 2023-09-01 02:40 | HMH.EDGENADL ---
Discharge Plan Disposition Patient Disposition: Home, Self-Care Prescriptions Prescriptions: No Action folic acid 1 mg tablet 1 mg PO DAILY 30 Days atorvastatin 80 mg tablet 80 mg PO HS 90 Days methotrexate sodium 2.5 MG tablet 15 mg PO WEEKLY Patient Comments: 6 TABLETS BY MOUTH WEEKLY tamsulosin 0.4 MG capsule 0.4 mg PO DAILY Patient Comments: take 1 capsule by mouth once daily fluticasone propionate 120 SPR/BOT bottle 1 spr NOSTRIL-B DAILYP PRN (Reason: Allergy symptoms) nitroglycerin 0.3 MG tablet, sublingual 0.3 mg SL Q5MINP PRN (Reason: Chest Pain) 30 Days Qty: 100 0RF furosemide 40 MG tablet 40 mg PO DAILY clopidogrel 75 MG tablet 75 mg PO DAILY hydrocodone-acetaminophen 5-325 mg tablet 1 tab PO Q6H PRN (Reason: pain) Qty: 14 0RF ibuprofen 600 mg tablet 600 mg PO Q6H PRN (Reason: fever) Qty: 30 0RF oxycodone 5 mg tablet 5 mg PO Q6H PRN (Reason: pain) Qty: 10 0RF Rx Instructions: Do not combine with other opiates acetaminophen-codeine 300-30 mg tablet 1 tab PO Q6H PRN (Reason: Pain) metoprolol tartrate 50 mg tablet 50 mg PO DAILY lisinopril 30 mg tablet 30 mg PO DAILY zinc 50 mg Capsule 50 mg PO DAILY Referrals Follow up/Referrals: Fran So MD [Primary Care Provider] - See instructions Clinical Impressions Clinical Impression: Influenza A with pneumonia, Hallucination, visual Respiratory failure Qualifiers: Chronicity: acute on chronic Respiratory failure complication: hypoxia and hypercapnia Qualified Code(s): J96.21 - Acute and chronic respiratory failure with hypoxia Volume overload Qualifiers: Hypervolemia type: other Qualified Code(s): E87.79 - Other fluid overload COPD (chronic obstructive pulmonary disease) Qualifiers: COPD type: COPD with acute exacerbation Qualified Code(s): J44.1 - Chronic obstructive pulmonary disease with (acute) exacerbation Discharge ED Provider: Charlie Denney Adult [facility] General Chief complaint: Shortness of Breath/Dyspnea Stated complaint: SOB Time Seen by Provider: 09/01/23 01:40 Mode of Arrival: Ambulatory Limitations: No Limitations Description of Symptoms (Recalled from ER Triage Doc. by RN): 83 year old male present to ER with complaints of increased shortness of breath for the two days. Patient states he usually only wears 2.5LNC of oxygen at night but has needed it more frequently in the last couple of days. C/O non productive wet cough . Patient states he has been seeing double and hallucinating things that are not there. History of Present Illness HPI narrative: 83-year-old male history of obesity, coronary artery disease, COPD, heart failure on 2 L nasal cannula at baseline, known renal masses being monitored serially (has had no biopsy or intervention), presents with worsening cough shortness of breath fever and hallucinations. Patient has been feeling ill since at least Saturday. He was supposed to have his regularly scheduled MRI for monitoring of his bilateral renal masses but he felt too sick to come in. They have been dealing with a family health issue for the last several days and so that is part of why he has not come in. He has been having worsening shortness of breath at home. He and his report that he has been having some visual hallucinations intermittently for the last couple of days. Related Data Home Medications Medication Instructions Recorded Confirmed atorvastatin 80 mg tablet 80 mg PO HS Cholesterol 90 days 01/21/18 09/01/23 folic acid 1 mg tablet 1 mg PO DAILY Supplement 30 days 01/21/18 09/01/23 fluticasone propionate 50 1 spr NOSTRIL-B DAILYP PRN Allergy 04/14/18 09/01/23 mcg/actuation nasal symptoms spray,suspension methotrexate sodium 2.5 mg tablet 15 mg PO WEEKLY psoriasis 04/14/18 09/01/23 tamsulosin 0.4 mg capsule 0.4 mg PO DAILY Prostate 04/14/18 09/01/23 hyperplasia clopidogrel 75 mg tablet 75 mg PO DAILY antiplatelet 06/09/21 09/01/23 furosemide 40 mg tablet 40 mg PO DAILY DIURETIC 06/09/21 09/01/23 acetaminophen 300 mg-codeine 30 mg 1 tab PO Q6H PRN Pain 09/01/23 09/01/23 tablet lisinopril 30 mg tablet 30 mg PO DAILY 09/01/23 09/01/23 metoprolol tartrate 50 mg tablet 50 mg PO DAILY hypertenson 09/01/23 09/01/23 zinc 50 mg capsule 50 mg PO DAILY 09/01/23 09/01/23 Previous Rx's Medication Instructions Recorded nitroglycerin 0.3 mg sublingual 0.3 mg SL Q5MINP PRN Chest Pain 30 04/15/18 tablet days ##100 hydrocodone 5 mg-acetaminophen 325 1 tab PO Q6H PRN pain #14 tabs 06/04/22 mg tablet ibuprofen 600 mg tablet 600 mg PO Q6H PRN fever #30 tabs 06/04/22 oxycodone 5 mg tablet 5 mg PO Q6H PRN pain #10 tabs 08/17/22 Allergies Allergy/AdvReac Type Severity Reaction Status Date / Time No Known Allergies Allergy Verified 07/03/21 13:47 [facility] Disclaimer: The information contained in this section may have been updated after the patient was seen, as this information can be updated by other users. Medical History (Updated 09/01/23 @ 04:03 by Charlie Denney MD) Diabetes Hypertension Kidney stones Surgical History History of bilateral knee replacement History of heart artery stent Hx of CABG Family History (Updated 08/17/22 @ 12:05 by Alycia Fry RN) Other No significant family history Social History (Updated 08/17/22 @ 12:05 by Alycia Fry RN) Smoking Status: Former smoker tobacco type: cigars alcohol intake: never substance use type: denies use current occupational status: retired Travel in the last 8 weeks: None household members: spouse housing: house caffeine: No ROS Obtained: Yes All systems reviewed & no additional complaints except as documented Physical Exam General General appearance: alert and anxious Head Head exam: atraumatic and normocephalic Eye Eye exam: Present normal appearance, PERRL and EOMI ENT ENT exam: Present normal oropharynx and normal external ear exam Neck Neck exam: Present normal inspection and full ROM Chest Chest inspection: Present normal inspection and symmetric chest wall rise; Absent tenderness Respiratory Respiratory exam: Present respiratory distress (Tachypneic), accessory muscle use, prolonged expiratory phase and other (Wheezes, rhonchi noted diffusely) Cardiovascular Cardiovascular exam: Present normal rhythm and tachycardia Abdominal Exam Abdominal exam: Present soft and distention; Absent tenderness or guarding Extremities Exam Extremities exam: Present normal inspection and edema (Bilateral lower extremity pitting); Absent joint swelling Back Exam Back exam: Present normal inspection; Absent tenderness Neurological Exam Neurological exam: Present alert, oriented X3 and other (Has been having visual hallucinations, not currently); Absent motor sensory deficit Psychiatric Psychiatric exam: Present normal affect and normal mood Skin Skin exam: Present warm, dry and normal color Lymphatic Lymphatic Findings: no adenopathy Medical Decision Making Medical Records Medical records reviewed: Yes I reviewed the patient's medical records. Heri Inquiry Pt receiving controlled substance: No Heri was queried for this patient: No Vital Signs: 09/01/23 01:43 09/01/23 01:48 09/01/23 02:01 Temperature 98.1 F Temperature Source Oral Pulse Rate 68 Pulse Rate [Left Radial] 81 Respiratory Rate 26 H 35 H Blood Pressure 114/56 L Blood Pressure [Right Arm] 106/51 L Blood Pressure Mean Blood Pressure Mean [Right Arm] 69 02 Sat by Pulse Oximetry 83 L 94 L 93 L Oxygen Delivery Method Nasal Cannula Nasal Cannula Oxygen Flow Rate (LPM) 2.5 4 09/01/23 02:00 09/01/23 02:24 09/01/23 02:31 Temperature Temperature Source Pulse Rate 78 77 80 Pulse Rate [Left Radial] Respiratory Rate 23 Blood Pressure 103/52 L Blood Pressure [Right Arm] Blood Pressure Mean Blood Pressure Mean [Right Arm] 02 Sat by Pulse Oximetry 91 L Oxygen Delivery Method Oxygen Flow Rate (LPM) 09/01/23 03:12 Temperature Temperature Source Pulse Rate 89 Pulse Rate [Left Radial] Respiratory Rate 22 Blood Pressure 109/49 L Blood Pressure [Right Arm] Blood Pressure Mean 59 Blood Pressure Mean [Right Arm] 02 Sat by Pulse Oximetry 92 L Oxygen Delivery Method Oxygen Flow Rate (LPM) 4 Lab Data Lab results reviewed: Yes I reviewed the patient's lab results. Lab Results 09/01/23 01:42: SARS-CoV-2 (PCR) Not detected, Influenza A Untype (PCR) Detected A, Influenza Type B (PCR) Not detected 09/01/23 01:53: WBC 6.0, RBC 4.38 L, Hgb 13.7 L, Hct 43.1, MCV 98.4 H, MCH 31.4 H, MCHC 31.9, RDW 14.6, Plt Count 177, MPV 8.2, Neut % (Auto) 72.0, Lymph % (Auto) 16.7, Leslie % (Auto) 10.8 H, Eos % (Auto) 0.3, Baso % (Auto) 0.3, Neut # (Auto) 4.3, Lymph # (Auto) 1.0, Leslie # (Auto) 0.6, Eos # (Auto) 0.0, Baso # (Auto) 0.0, D-Dimer 0.87 H, Sodium 136, Potassium 4.6, Chloride 97 L, Carbon Dioxide 36 H, Anion Gap 7.6, BUN 26 H, Creatinine 0.90, Estimated Creat Clear 50, Estimated GFR 81, Est GFR ( Amer) 98, Glucose 141 H, Lactate 1.6, Calcium 8.9, Magnesium 2.1, Total Bilirubin 0.5, AST 32, ALT 24, Alkaline Phosphatase 70, Troponin I 0.03, NT-Pro-B Natriuret Pep 3230 H, Total Protein 6.7, Albumin 3.8, Globulin 2.9, Albumin/Globulin Ratio 1.3 09/01/23 01:54: VBG pH 7.30 L, VBG pCO2 65.5 H, VBG pO2 46.3 H, VBG HCO3 31.7 H, VBG Total CO2 33.7 H, VBG O2 Saturation 78.7 H, VBG Base Excess 5.4 H 09/01/23 02:37: Urine Color Yellow, Urine Appearance Clear, Urine pH 5.5, Ur Specific Jasper 1.025, Urine Protein Trace, Urine Glucose (UA) Negative, Urine Ketones Negative, Urine Blood Negative, Urine Nitrate Negative, Urine Bilirubin Negative, Urine Urobilinogen 0.2, Ur Leukocyte Esterase Negative, Urine RBC None, Urine WBC 10-20, Ur Squamous Epith Cells 3-5, Urine Bacteria Trace, Hyaline Casts 5-10, Urine Mucus Trace 09/01/23 01:53 09/01/23 01:53 Orders (Tests/Meds): ED MEDICATIONS Generic Name Dose Route Start Last Admin Trade Name Freq PRN Reason Stop Dose Admin Acetaminophen 650 mg 09/01/23 03:59 Acetaminophen 325mg Tab PO 10/01/23 03:58 Q4HP PRN Fever or Mild Pain (1-3) Enoxaparin Sodium 40 mg 09/01/23 09:00 Enoxaparin 40mg/0.4ml Syringe SQ 10/01/23 08:59 DAILY SEMAJ Vancomycin HCl 2,000 mg/ 250 mls @ 125 mls/hr 09/01/23 02:45 Sodium Chloride IV 09/01/23 04:44 ONCE ONE Miscellaneous 1 each 09/01/23 02:30 09/01/23 02:39 Vancomycin Consult Request NOTAPPLIC 10/01/23 02:29 1 each CONSULT PHARMACY COUNT INCLUDES THE [facility] Administration Morphine Sulfate 2 mg 09/01/23 03:59 Morphine 2mg/Ml Syringe IV 10/01/23 03:58 Q2HP PRN Severe Pain (7-10) Ondansetron HCl 4 mg 09/01/23 03:59 Ondansetron 4mg/2ml Vial IV 10/01/23 03:58 Q8HP PRN Nausea Pantoprazole Sodium 40 mg 09/01/23 09:00 Pantoprazole 40mg Tablet PO 10/01/23 08:59 DAILY COUNT INCLUDES THE [facility] Sodium Chloride 3 ml 09/01/23 02:27 Sodium Chloride 3% 15ml [facility] 10/01/23 02:26 ONCE PRN INDUCE SPUTUM COLLECTION Discontinued Medications Generic Name Dose Route Start Last Admin Trade Name Freq PRN Reason Stop Dose Admin Acetaminophen 1,000 mg 09/01/23 01:42 09/01/23 01:55 Acetaminophen 500mg Tab PO 09/01/23 01:43 1,000 mg ONCE ONE Administration Albuterol/Ipratropium 9 ml 09/01/23 01:42 09/01/23 02:00 Ipratropium/Albuterol 3 Ml [facility] 09/01/23 01:43 9 ml ONCE ONE Administration Furosemide 80 mg 09/01/23 02:36 09/01/23 02:43 Furosemide 40mg/4ml Vial IV 09/01/23 02:37 80 mg ONCE ONE Administration Azithromycin 500 mg/ Sodium 250 mls @ 250 mls/hr 09/01/23 02:22 09/01/23 03:00 Chloride IV 09/01/23 02:23 250 mls/hr ONCE ONE Administration Ceftriaxone Sodium 1 gm/ 50 mls @ 100 mls/hr 09/01/23 02:25 09/01/23 02:35 Sodium Chloride IV 09/01/23 02:54 100 mls/hr ONCE ONE Administration Iopamidol 150 ml 09/01/23 03:14 09/01/23 03:15 Iopamidol-370 (76%);100ml Bottle IV 09/01/23 03:15 150 ml ONCE ONE Administration Methylprednisolone Sodium Succinate 125 mg 09/01/23 02:36 09/01/23 02:43 Methylprednisolone Sod Succ 125mg Vial IV 09/01/23 02:37 125 mg ONCE ONE Administration Oseltamivir Phosphate 75 mg 09/01/23 02:21 09/01/23 02:43 Oseltamivir 75mg Capsule PO 09/01/23 02:22 75 mg ONCE ONE Administration Sodium Chloride 10 ml 09/01/23 03:14 09/01/23 03:15 Sodium Chloride 0.9% 10ml Syr (Rad Only) IV 09/01/23 03:15 10 ml ONCE ONE Administration ORDERS Category Date Time Status CT abdomen pelvis w con Stat Cat Scan 09/01/23 02:[address] angio chest PE protocol Stat Cat Scan 09/01/23 02:[address] head/brain wo/w con Stat Cat Scan 09/01/23 02:33 Completed CXR --portable [XR chest portable] Stat Exams 09/01/23 01:43 Completed BNP [Brain Natriuretic Peptide] Stat Lab 09/01/23 01:53 Completed CBC w/Auto Diff [Complete Blood Count Auto Diff] Stat Lab 09/01/23 01:53 Completed CMP [Comprehensive Metabolic Panel] Stat Lab 09/01/23 01:53 Completed Complete Blood Count Auto Diff AMLAB Lab 09/01/23 06:00 Ordered Comprehensive Metabolic Panel AMLAB Lab 09/01/23 06:00 Ordered D-Dimer Stat Lab 09/01/23 01:53 Completed Lactic Acid Stat Lab 09/01/23 01:53 Completed Magnesium Stat Lab 09/01/23 01:53 Completed Rapid PCR Covid and Flu A/B Stat Lab 09/01/23 01:42 Completed Troponin I Q3H Lab 09/01/23 01:53 Completed Troponin I Q3H Lab 09/01/23 04:45 Ordered Urinalysis and Microscopic Stat Lab 09/01/23 02:37 Completed Blood Culture Stat Micro 09/01/23 02:16 Received Sputum Culture & Gram Stain Stat Micro 09/01/23 02:27 Ordered Urine Culture Stat Micro 09/01/23 02:37 Received VBG [Venous Blood Gas] Stat RT 09/01/23 01:54 Completed ECG initial [place]on Routine Y 09/01/23 01:42 Completed Medical Decision Narrative: 83-year-old male, presentation complicated by history of coronary artery disease status post CABG, COPD on 2 L nasal cannula baseline, heart failure, known renal masses presents with worsening shortness of breath, productive cough, fever, hallucinations over the last several days.. History was obtained via conversation with patient, chart review, . On arrival, patient is afebrile, hypoxic satting 80% on home 2 L after ambulating from car to bed, mildly ill appearing, moving all extremities spontaneously. Full physical exam performed and significant for diffuse wheezes and rhonchi with prolonged expiratory phase, bilateral pitting edema. Patient requiring 4 L nasal cannula to maintain sats greater than 90%. Differential includes but is not limited to COVID, flu, pneumonia, MRSA pneumonia in the setting of influenza, COPD exacerbation, heart failure exacerbation, bacteremia, metastatic renal cancer with intracranial lesion, PE, lung metastases. Workup included CBC CMP blood cultures UA urine cultures sputum Gram stain and culture, mag, troponin, D-dimer, VBG, BNP flu/COVID swab lactic EKG chest x-ray. CT scan of the head without contrast was ordered to assess for possible metastatic disease given new hallucinations and history of renal mass. CT chest ordered to further characterize opacities noted on x-ray and to assess for PE, CT abdomen to assess for any metastatic disease. Laboratory workup independently interpreted by me and significant for normal white count, elevated D-dimer, elevated BUN, elevated BNP, urine with 10-20 WBCs and trace bacteria. Initial troponin within normal limits. VBG shows likely acute on chronic respiratory acidosis with metabolic compensation. Imaging independently interpreted by me and significant for stable appearing meningioma in the brain without evidence of metastatic disease. CT chest shows no large PE but does show bilateral infiltrates consistent with viral pneumonia. CT abdomen pelvis shows no new lesions in the kidneys.. See radiology read for full review of final results. EKG independently interpreted by me and significant for sinus rhythm with a rate of 74, isolated deep Q-wave noted in lead III. Given patient history, exam and workup, patient's presentation most likely represents acute hypoxic and hypercarbic respiratory failure secondary to influenza related pneumonia with associated COPD exacerbation and volume overload. During ED stay, patient was given DuoNebs x 3, 80 mg IV Lasix, 1 g IV ceftriaxone, 500 mg IV azithromycin, 1 g p.o. Tylenol, 125 mg of IV Methylpred, p.o. oseltamivir, pharmacy to dose vancomycin. These were initiated for treatment of flu pneumonia, concern for possible secondary bacterial pneumonia in the setting of flu infection including possible MRSA, steroids for COPD, Lasix for volume overload noted on exam. And interactive discussion was had with hospitalist on-call for admission for further evaluation and management. Procedures Risk/Benefits of Procedure(s) Were Explained: Yes Critical Care Critical Care Time Critical Care Time: Yes Attestation: On 09/01/23, the high probability of a clinically significant, sudden or life threatening deterioration of the following system(s) respiratory required my full and direct attention, intervention and personal management. The time I documented below is in addition to time spent performing reported procedures but includes the following listed in this critical care notation. Total Time Total Critical Care Time: 40
--- NOTE | 2023-09-01 02:41 | CT_ITS ---
PROCEDURE INFORMATION: Exam: CT Abdomen And Pelvis With Contrast Exam date and time: 09/01/2023 3:00 AM Age: 83 years old Clinical indication: Other: HX of renal masses; Additional info: Pneumonia, AMS, HX renal masses TECHNIQUE: Imaging protocol: Computed tomography of the abdomen and pelvis with contrast. Radiation optimization: All CT scans at this facility use at least one of these dose optimization techniques: automated exposure control; mA and/or kV adjustment per patient size (includes targeted exams where dose is matched to clinical indication); or iterative reconstruction. Contrast material: ISOVUE; Contrast volume: 75 ml; Contrast route: IV; REPORTING DATA: Count of CT and Cardiac NM exams in prior 12 months: This patient has received 2 known CTs and 0 known cardiac nuclear medicine studies in the 12 months prior to the current study. COMPARISON: 1. CT ABDOMEN PELVIS WO/W CON 03/04/2023 10:[address] ABDOMEN WO/W CON 09/05/2022 9:[address] ANGIO CHEST PE PROTOCOL 09/01/2023 3:00 AM FINDINGS: Liver: Normal. No mass. Gallbladder and bile ducts: Normal. No calcified stones. No ductal dilation. Pancreas: There is fatty replacement of the pancreas. Spleen: The spleen is normal in size and attenuation. No splenic masses or cysts are observed. Adrenal glands: The adrenal glands are mildly thickened, a nonspecific finding. Kidneys and ureters: Stable 2 cm right posterior midpole renal mass. Stable cystic and solid left posterior midpole renal mass measuring 2.7 cm. No new or enlarging mass is seen. There is nonspecific bilateral perinephric stranding. Stomach and bowel: There are scattered colonic diverticula without evidence for active diverticulitis. Appendix: No evidence of appendicitis. Intraperitoneal space: Unremarkable. No free air. No significant fluid collection. Vasculature: There is atherosclerotic disease of the visualized aorta and its major branch vessels. Lymph nodes: No enlarged or pathological lymph nodes are identified in the abdomen or pelvis. Urinary bladder: Excreted contrast is noted in the urinary bladder. Reproductive: The prostate is enlarged. Bones/joints: There is diffuse degenerative disease of the visualized osseous structures. Soft tissues: There are fat containing bilateral inguinal hernias. Stable rounded focus of fat necrosis adjacent to the left colon. Other findings: Please see the dedicated interpretation of the thorax for findings in that region. IMPRESSION: 1. Stable renal masses. No acute pathology is identified in the abdomen or pelvis. 2. Please see the dedicated interpretation of the thorax for findings in that region.
[2023-09-01 02:42] LABS: Appearance,Urine CLEAR (Clear); Bilirubin,Urine Negative (Negative); Blood, Urine Negative (Negative); Color,Urine YELLOW (Yellow); Glucose,Urine (UA) Negative (Negative); Ketones,Urine Negative (Negative); Leukocyte Esterase,Urine Negative (Negative); Microscopic, Urine URINE MICROSCOPIC (MICROSCOPIC); Nitrate,Urine Negative (Negative); PH,Urine 5.5 (5.0-8.5); Protein,Urine TRACE (Negative); Specific Gravity, Urine 1.025 (1.005-1.030); Urobilinogen,Urine 0.2 EU/dl (0.2)
[2023-09-01] MEDS: METHYLPREDNISOLONE SOD SUCC 125MG VIAL 125 MG IV (02:43)
[2023-09-01] MEDS: FUROSEMIDE 40MG/4ML VIAL 80 MG IV (02:43)
[2023-09-01] MEDS: OSELTAMIVIR 75MG CAPSULE 75 MG PO ×3 (02:43→20:49)
[2023-09-01 02:57] LABS: D-Dimer 0.87 ug/mL (0.0-0.5)
[2023-09-01] MEDS: AZITHROMYCIN 500 MG in 0.9 % SODIUM CHLORIDE 250 ML 250 MG IV (03:00)
[2023-09-01 03:01] LABS: Bacteria,Urine Trace /lpf; Mucus,Urine Trace /lpf
[2023-09-01] MEDS: IOPAMIDOL-370 (76%);100ML BOTTLE 150 ML IV (03:15)
[2023-09-01] MEDS: SODIUM CHLORIDE 0.9% 10ML SYR (RAD ONLY) 10 ML IV (03:15)
--- NOTE | 2023-09-01 03:20 | PC.NURSE ---
Patient had an episode of large urine incontinence. Patient was cleaned and new linens applied.
--- NOTE | 2023-09-01 03:57 | PC.NURSE ---
Dr. Denney on phone with hospitilist for admission. Patient accepted.
--- NOTE | 2023-09-01 03:58 | PC.NURSE ---
House notified of admission to hospitalist services.
--- NOTE | 2023-09-01 04:01 | P.HP_ITS ---
History of Present Illness *Admission Date: 09/01/23 *Reason for visit:: SOB *History of present illness: This is a 83-year-old male PMHx of obesity, coronary artery disease, COPD, heart failure on 2 L nasal cannula at baseline, bilateral known renal masses being monitored serially (has had no biopsy or intervention), presents with worsening cough shortness of breath fever and hallucinations. Patient has been feeling ill since at least Saturday. He was supposed to have his regularly scheduled MRI for monitoring of his bilateral renal masses but he felt too sick to come in. He has been having worsening shortness of breath at home. He has been having some visual hallucinations intermittently for the last couple of days. Admitted for further work up and treatment. [facility] Disclaimer: The information contained in this section may have been updated after the patient was seen, as this information can be updated by other users. Medical History (Updated 09/01/23 @ 05:30 by Edgar Tejeda APRN) Diabetes Hypertension Kidney stones Surgical History History of bilateral knee replacement History of heart artery stent Hx of CABG Family History (Updated 08/17/22 @ 12:05 by Alycia Fry RN) Other No significant family history Social History (Updated 08/17/22 @ 12:05 by Alycia Fry RN) Smoking Status: Former smoker tobacco type: cigars alcohol intake: never substance use type: denies use current occupational status: retired Travel in the last 8 weeks: None household members: spouse housing: house caffeine: No Review of Systems Review of Systems Review of systems:: pertinent systems reviewed and negative unless documented below Meds Home Medications and Allergies Home Medications Medication Instructions Recorded Confirmed Type atorvastatin 80 mg tablet 80 mg PO HS Cholesterol 90 days 01/21/18 09/01/23 History folic acid 1 mg tablet 1 mg PO DAILY Supplement 30 days 01/21/18 09/01/23 History fluticasone propionate 50 1 spr NOSTRIL-B DAILYP PRN Allergy 04/14/18 09/01/23 History mcg/actuation nasal symptoms spray,suspension methotrexate sodium 2.5 mg tablet 15 mg PO WEEKLY psoriasis 04/14/18 09/01/23 History tamsulosin 0.4 mg capsule 0.4 mg PO DAILY Prostate 04/14/18 09/01/23 History hyperplasia nitroglycerin 0.3 mg sublingual 0.3 mg SL Q5MINP PRN Chest Pain 30 04/15/18 09/01/23 Rx tablet days ##100 clopidogrel 75 mg tablet 75 mg PO DAILY antiplatelet 06/09/21 09/01/23 History furosemide 40 mg tablet 40 mg PO DAILY DIURETIC 06/09/21 09/01/23 History hydrocodone 5 mg-acetaminophen 325 1 tab PO Q6H PRN pain #14 tabs 06/04/22 09/01/23 Rx mg tablet ibuprofen 600 mg tablet 600 mg PO Q6H PRN fever #30 tabs 06/04/22 09/01/23 Rx oxycodone 5 mg tablet 5 mg PO Q6H PRN pain #10 tabs 08/17/22 09/01/23 Rx acetaminophen 300 mg-codeine 30 mg 1 tab PO Q6H PRN Pain 09/01/23 09/01/23 History tablet lisinopril 30 mg tablet 30 mg PO DAILY 09/01/23 09/01/23 History metoprolol tartrate 50 mg tablet 50 mg PO DAILY hypertenson 09/01/23 09/01/23 History zinc 50 mg capsule 50 mg PO DAILY 09/01/23 09/01/23 History New Prescriptions to Start Prescriptions: Allergies Allergy/AdvReac Type Severity Reaction Status Date / Time No Known Allergies Allergy Verified 07/03/21 13:47 Exam Data for Last 24 hours Vital signs and Labs for Last 24 Hours: Temp Pulse Resp BP Pulse Ox O2 Del Method O2 Flow Rate 98.1 F 89 22 109/49 L 92 L Nasal Cannula 4 09/01/23 01:43 09/01/23 03:12 09/01/23 03:12 09/01/23 03:12 09/01/23 03:12 09/01/23 01:48 09/01/23 03:12 Laboratory Results - last 24 hr 09/01/23 01:42: SARS-CoV-2 (PCR) Not detected, Influenza A Untype (PCR) Detected A, Influenza Type B (PCR) Not detected 09/01/23 01:53: WBC 6.0, RBC 4.38 L, Hgb 13.7 L, Hct 43.1, MCV 98.4 H, MCH 31.4 H, MCHC 31.9, RDW 14.6, Plt Count 177, MPV 8.2, Neut % (Auto) 72.0, Lymph % (Auto) 16.7, [place] % (Auto) 10.8 H, Eos % (Auto) 0.3, Baso % (Auto) 0.3, Neut # (Auto) 4.3, Lymph # (Auto) 1.0, [place] # (Auto) 0.6, Eos # (Auto) 0.0, Baso # (Auto) 0.0, D-Dimer 0.87 H, Sodium 136, Potassium 4.6, Chloride 97 L, Carbon Dioxide 36 H, Anion Gap 7.6, BUN 26 H, Creatinine 0.90, Estimated Creat Clear 50, Estimated GFR 81, Est GFR ( Amer) 98, Glucose 141 H, Lactate 1.6, Calcium 8.9, Magnesium 2.1, Total Bilirubin 0.5, AST 32, ALT 24, Alkaline Phosphatase 70, Troponin I 0.03, NT-Pro-B Natriuret Pep 3230 H, Total Protein 6.7, Albumin 3.8, Globulin 2.9, Albumin/Globulin Ratio 1.3 09/01/23 01:54: VBG pH 7.30 L, VBG pCO2 65.5 H, VBG pO2 46.3 H, VBG HCO3 31.7 H, VBG Total CO2 33.7 H, VBG O2 Saturation 78.7 H, VBG Base Excess 5.4 H 09/01/23 02:37: Urine Color Yellow, Urine Appearance Clear, Urine pH 5.5, Ur Specific [place] 1.025, Urine Protein Trace, Urine Glucose (UA) Negative, Urine Ketones Negative, Urine Blood Negative, Urine Nitrate Negative, Urine Bilirubin Negative, Urine Urobilinogen 0.2, Ur Leukocyte Esterase Negative, Urine RBC None, Urine WBC 10-20, Ur Squamous Epith Cells 3-5, Urine Bacteria Trace, Hyaline Casts 5-10, Urine Mucus Trace I & O for Last 24 hours: Intake & Output 08/29/23 08/30/23 08/31/23 09/01/23 23:59 23:59 23:59 23:59 Weight 113.398 kg Constitutional Constitutional: moderate distress, morbidly obese and cooperative *Routine HEENT Exam Head: Present normocephalic and atraumatic Eye: Present EOMI, PERRL and normal accommodation ENT: Present mucous membranes moist *Routine Neck Exam Neck: Present supple, full ROM and trachea midline *Routine Respiratory Exam Respiratory: Present decreased breath sounds, respiratory distress, diminished air movement and symmetric chest movement *Routine Cardiovascular Exam Cardiovascular: Present RRR, Normal S1 and Normal S2 *Routine Abdominal Exam Abdominal: Present soft, normoactive bowel sounds and obese; Absent organomegaly *Routine Rectal Exam Rectal:: deferred *Routine Genitalia Exam Genitalia:: deferred *Routine Extremities Exam Extremities: Present edema, full ROM, pulses intact and normal capillary refill; Absent cyanosis or clubbing *Routine Skin Exam Skin: Present intact, dry and warm *Routine Neurological Exam Neurological: Present alert, oriented X3, normal reflexes, moving all extremities and normal speech Routine Psychiatric Exam Psychiatric: Present normal thought process, cooperative and good judgment H&P: Result Imaging and Cardiology Chest x-ray: Status: image reviewed by me, Preliminary report and final report CT scan - abdomen: Status: image reviewed by me, Preliminary report and final report CT scan - pelvis: Status: image reviewed by me, Preliminary report and final report CT scan - head: Status: image reviewed by me, Preliminary report and final report EKG: Status: image reviewed by me and Preliminary report Assessment and Plan *Assessment and plan (1) Influenza A with pneumonia: Status: Acute Category: Medical Code(s): J09.X1 - Influenza due to identified novel influenza A virus with pneumonia (2) Volume overload: Status: Acute Qualifiers: Hypervolemia type: other Qualified Code(s): E87.79 - Other fluid overload Category: Medical Code(s): E87.70 - Fluid overload, unspecified (3) COPD (chronic obstructive pulmonary disease): Status: Acute Qualifiers: COPD type: COPD with acute exacerbation Qualified Code(s): J44.1 - Chronic obstructive pulmonary disease with (acute) exacerbation Category: Medical Code(s): J44.9 - Chronic obstructive pulmonary disease, unspecified (4) Coronary atherosclerosis of [place] coronary artery: Status: Acute Qualifiers: Associated angina: without angina [place] vs. transplanted heart: [place] heart Qualified Code(s): I25.10 - Atherosclerotic heart disease of [place] coronary artery without angina pectoris Category: Medical Code(s): I25.10 - Atherosclerotic heart disease of [place] coronary artery without angina pectoris (5) Bilateral kidney masses: Status: Acute Category: Medical Code(s): N28.89 - Other specified disorders of kidney and ureter (6) Diabetes: Status: Acute Qualifiers: Diabetes mellitus complication status: with other specified complication Diabetes mellitus prison insulin use: without exterminator use Diabetes mellitus type: type 2 Qualified Code(s): E11.69 - Type 2 diabetes mellitus with other specified complication Category: Medical Code(s): E11.9 - Type 2 diabetes mellitus without complications (7) Morbid obesity with BMI of 40.0-44.9, adult: Status: Acute Category: Medical Code(s): E66.01 - Morbid (severe) obesity due to excess calories; Z68.41 - Body mass index [BMI] 40.0-44.9, adult Plan -year-old male PMHx of obesity, coronary artery disease, COPD, heart failure on 2 L nasal cannula at baseline, bilateral known renal masses being monitored serially (has had no biopsy or intervention), presents with worsening cough shortness of breath fever and hallucinations. On arrival ER work up as sepsis. underwent for CT of chest, head and abdomen. imaging reviewed. Chest CT concerning for upper lobe pneumonia. Patient is positive for influenza. labs work showed elevated BNP. Findings discussed with ER provoder. Agreed for admission. Plans as follow: -Influenza A w/ PNA: presented with fever, difficulty breathing and visual hallucination. Improved. Admit patient. Dispo Med-surg Levaquin, ceft and Vanco given at ER started on tamiflu BC pending sputum pending CT chest reviewed. Nebulizer PRN maximized O2 sat. Currently 4L tylenol PRN if temp greater than 101F monitor for sepsis -Volumen overload lower extremities edema and elevated BNP lasix 80mg given resume daily dose. monitor I/Os and renal function monitor for electrolytes imbalances daily weight CXR does not showed edema -COPD: on 4L NC. cont monitorin g duoneb q6h PRN -CAD, HTN: resume home aspirin, statin, lisinopril metoprolol -Bilateral renal masses: stable. reviewed, CT of abd/pelvis cont monitoring -Hx of diabetes. Currently managed by diet. accucheck before meal Sliding scale as needed Morbidly obese: Abnormal BMI. PCP for f/u On plavix.and protonix Full code Attending attestation Patient was seen and evaluated at the bedside myself, agree with [employer] note. continue diuresis
--- NOTE | 2023-09-01 04:03 | PC.NURSE ---
Room 204 Diagnosis: Flu pneumonia, COPD exacerbation, Fluid overload
[2023-09-01] MEDS: VANCOMYCIN HCL 2,000 MG in 0.9 % SODIUM CHLORIDE 250 ML 125 MG IV (04:11)
--- NOTE | 2023-09-01 04:13 | PC.NURSE ---
Report given to MATTIE Sheldon
--- NOTE | 2023-09-01 04:37 | PC.NURSE ---
PT ARRIVED TO FLOOR AT THIS TIME
[2023-09-01 06:48] LABS: POC Glucose,Bedside 154 (70-110)
[2023-09-01] MEDS: humaLOG 100 UNITS/ML 3ML VIAL (SSI) SQ ×3 (07:00→20:48)
[2023-09-01 07:28] LABS: Basophils % 0.1 % (0.1-2.0); Eosinophils % 0.1 % (0.1-12.0); Hematocrit 41.7 % (42.0-52.0); Hemoglobin 13.6 g/dL (14.1-18.0); Lymphocytes # 0.5 K/mm3 (0.7-4.5); Lymphocytes % 6.8 % (10-50); Mean Corpuscular HGB Conc 32.6 g/dL (31.8-35.4); Mean Corpuscular Hemoglobin 31.9 pg (27.0-31.2); Mean Corpuscular Volume 97.8 fl (80-94); Mean Platelet Volume 8.5 fl (7.4-10.4); Monocytes # 0.2 K/mm3 (0.1-1.0); Monocytes % 3.3 % (1.7-9.3); Neutrophils # 6.5 K/mm3 (1.8-7.8); Neutrophils % 89.8 % (37.0-80.0); Platelet Count 159 K/mm3 (142-424); Red Blood Count 4.26 M/mm3 (4.60-6.20); Red Cell Distribution Width 14.7 % (11.5-17.5); White Blood Count 7.3 K/mm3 (4.8-10.8)
[2023-09-01 07:34] LABS: MANUAL DIFFERENTIAL MANUAL DIFFERENTIAL (MANUAL DIFF)
[2023-09-01 07:37] LABS: Alanine Aminotransferase 22 U/L (12-78); Albumin Level 3.7 g/dl (3.5-5.0); Albumin/Globulin Ratio 1.2 (1.1-1.8); Alkaline Phosphatase 73 U/L (38-126); Anion Gap 9.4 mEq/L (5-15); Aspartate Amino Transferase 29 U/L (17-59); Bilirubin,Total 0.4 mg/dl (0.2-1.3); Blood Urea Nitrogen 26 mg/dl (9-20); Calcium 8.7 mg/dl (8.4-10.2); Carbon Dioxide 34 mmol/L (22.0-30.0); Chloride 97 mmol/L (98-107); Creatinine Clearance Estimated 49 mL/min (50-200); Estimated Glomerular Filt Rate 81 ml/min (>60); GFR (African American) 98 ML/MIN (>60); Glucose 170 mg/dl (74-100); Potassium 4.4 mmoL/L (3.5-5.1); Sodium 136 mmol/L (136-145); Total Protein,Serum 6.7 g/dl (6.3-8.2)
[2023-09-01 08:19] LABS: Lymphocytes % 3 % (10-50); Monocytes % 3 % (2-9); Neutrophils % 94 % (42-76); Platelet Estimate Normal; RBC Morphology Normal; Total Cells Counted 100
[2023-09-01 08:50] LABS: Troponin I 0.02 ng/ml (0.00-0.034)
[2023-09-01] MEDS: CLOPIDOGREL 75MG TAB 75 MG PO (09:03)
[2023-09-01] MEDS: FUROSEMIDE 40 MG TABLET PO (09:03)
[2023-09-01] MEDS: FOLIC ACID 1MG TABLET 1 MG PO (09:03)
[2023-09-01] MEDS: METOPROLOL TARTRATE 50MG TABLET 50 MG PO (09:03)
[2023-09-01] MEDS: TAMSULOSIN 0.4MG CAPSULE 0.400000000000000022 MG PO (09:03)
[2023-09-01] MEDS: LISINOPRIL 10MG TABLET 30 MG PO (09:03)
[2023-09-01] MEDS: PANTOPRAZOLE 40MG TABLET 40 MG PO (09:03)
[2023-09-01] MEDS: FUROSEMIDE 40MG/4ML VIAL 40 MG IV ×2 (10:52→16:39)
--- NOTE | 2023-09-01 14:31 | P.CONPHA_ITS ---
Pharmacy Consult Date: 09/01/23 Time: 14:31 Referring provider: DR. PANIAGUA Reason for Consult:: VANCOMYCIN DOSING Allergies Allergy/AdvReac Type Severity Reaction Status Date / Time No Known Allergies Allergy Verified 07/03/21 13:47 Home Medications Medication Instructions Recorded Confirmed Type atorvastatin 80 mg tablet 80 mg PO HS Cholesterol 90 days 01/21/18 09/01/23 History folic acid 1 mg tablet 1 mg PO DAILY Supplement 30 days 01/21/18 09/01/23 History methotrexate sodium 2.5 mg tablet 15 mg PO FR psoriasis 04/14/18 09/01/23 History tamsulosin 0.4 mg capsule 0.4 mg PO DAILY Prostate 04/14/18 09/01/23 History hyperplasia clopidogrel 75 mg tablet 75 mg PO DAILY antiplatelet 06/09/21 09/01/23 History furosemide 40 mg tablet 40 mg PO DAILY DIURETIC 06/09/21 09/01/23 History acetaminophen 300 mg-codeine 30 mg 1 tab PO Q6HP PRN Pain 09/01/23 09/01/23 History tablet lisinopril 30 mg tablet 30 mg PO DAILY Hypertension 09/01/23 09/01/23 History metoprolol tartrate 50 mg tablet 50 mg PO BID hypertenson 09/01/23 09/01/23 History nitroglycerin 0.4 mg sublingual 0.4 mg sublingual Q5MINP PRN Chest 09/01/23 09/01/23 History tablet Pain New Prescriptions to Start Prescriptions: Height: 1.65 m Weight: 114.124 kg Laboratory Results:: Laboratory Results - last 24 hr 09/01/23 01:42: SARS-CoV-2 (PCR) Not detected, Influenza A Untype (PCR) Detected A, Influenza Type B (PCR) Not detected 09/01/23 01:53: WBC 6.0, RBC 4.38 L, Hgb 13.7 L, Hct 43.1, MCV 98.4 H, MCH 31.4 H, MCHC 31.9, RDW 14.6, Plt Count 177, MPV 8.2, Neut % (Auto) 72.0, Lymph % (Auto) 16.7, [place] % (Auto) 10.8 H, Eos % (Auto) 0.3, Baso % (Auto) 0.3, Neut # (Auto) 4.3, Lymph # (Auto) 1.0, [place] # (Auto) 0.6, Eos # (Auto) 0.0, Baso # (Auto) 0.0, D-Dimer 0.87 H, Sodium 136, Potassium 4.6, Chloride 97 L, Carbon Di oxide 36 H, Anion Gap 7.6, BUN 26 H, Creatinine 0.90, Estimated Creat Clear 50, Estimated GFR 81, Est GFR ( Amer) 98, Glucose 141 H, Lactate 1.6, Calcium 8.9, Magnesium 2.1, Total Bilirubin 0.5, AST 32, ALT 24, Alkaline Phosphatase 70, Troponin I 0.03, NT-Pro-B Natriuret Pep 3230 H, Total Protein 6.7, Albumin 3.8, Globulin 2.9, Albumin/Globulin Ratio 1.3 09/01/23 01:54: VBG pH 7.30 L, VBG pCO2 65.5 H, VBG pO2 46.3 H, VBG HCO3 31.7 H, VBG Total CO2 33.7 H, VBG O2 Saturation 78.7 H, VBG Base Excess 5.4 H 09/01/23 02:37: Urine Color Yellow, Urine Appearance Clear, Urine pH 5.5, Ur Specific [place] 1.025, Urine Protein Trace, Urine Glucose (UA) Negative, Urine Ketones Negative, Urine Blood Negative, Urine Nitrate Negative, Urine Bilirubin Negative, Urine Urobilinogen 0.2, Ur Leukocyte Esterase Negative, Urine RBC None, Urine WBC 10-20, Ur Squamous Epith Cells 3-5, Urine Bacteria Trace, Hyaline Casts 5-10, Urine Mucus Trace 09/01/23 06:34: WBC 7.3, RBC 4.26 L, Hgb 13.6 L, Hct 41.7 L, MCV 97.8 H, MCH 31.9 H, MCHC 32.6, RDW 14.7, Plt Count 159, MPV 8.5, Neut % (Auto) 89.8 H, Lymph % (Auto) 6.8 L, [place] % (Auto) 3.3, Eos % (Auto) 0.1, Baso % (Auto) 0.1, Neut # (Auto) 6.5, Lymph # (Auto) 0.5 L, [place] # (Auto) 0.2, Eos # (Auto) 0.0, Baso # (Auto) 0.0, Total Counted 100, Neutrophils % (Manual) 94 H, Lymphocytes % (Manual) 3 L, Monocytes % (Manual) 3, Platelet Estimate Normal, RBC Morphology Normal, Sodium 136, Potassium 4.4, Chloride 97 L, Carbon Dioxide 34 H, Anion Gap 9.4, BUN 26 H, Creatinine 0.90, Estimated Creat Clear 49, Estimated GFR 81, Est GFR ( Amer) 98, Glucose 170 H D, Calcium 8.7, Total Bilirubin 0.4, AST 29, ALT 22, Alkaline Phosphatase 73, Troponin I 0.02, Total Protein 6.7, Albumin 3.7, Globulin 3.0, Albumin/Globulin Ratio 1.2 09/01/23 06:38: POC Glucose 154 H Medical History: Medical History (Updated 09/01/23 @ 05:30 by Edgar Tejeda APRN) Diabetes Hypertension Kidney stones Assessment and Plan Assessment and plan all Dx Assessment and Plan for all problems:: Pharmacokinetic dosing service Objective: Patient: Floor: Age: 83 yo Serum creatinine: 1 mg/dL Height: 65.0 Inches Weight (kg): 114 Assessment: IBW (kg): 61.50 Dosing wt(kg): 114 Estimated Creatinine clearance (ml/min): 50.4 CRCL method: Cockcroft and Gault using ibw(default). Drug selected: Vancomycin Loading dose (mg): 0 Vd (liters): 91.2 (factor used: 0.8 L/kg) Meño (hr-1): 0.046 Half life (hrs): 15.07 Recommended dose: 1750 mg Interval: 18 hrs Infusion time (hrs): 2.0 Predicted peak (mcg/mL): 32.6 Predicted trough (mcg/mL): 15.62 Total body weight is being used for vancomycin dosing. Recommendations: Give Vancomycin 1750 mg q 18 hrs with an expected Cpeak of 32.6 mcg/ml and an expected Ctrough of 15.62 mcg/ml ----Vanco only - ignore for aminoglycosides----- CLvanco= 4.20 L/hr AUC 0-24 /ALISA Data: ALISA 0.5 mcg/mL: AUC/ALISA: 1111.1 ALISA 1.0 mcg/mL: AUC/ALISA: 555.6 --------- ALISA 1.5 mcg/mL: AUC/ALISA: 370.4 ALISA 2.0 mcg/mL: AUC/ALISA: 277.8
[2023-09-01 16:50] LABS: POC Glucose,Bedside 137 (70-110)
[2023-09-01 20:36] LABS: POC Glucose,Bedside 153 (70-110)
[2023-09-01] MEDS: VANCOMYCIN/WATER FOR INJ (PEG) 1.75 GM/350 ML PIGGYBACK IV (20:48)
[2023-09-01] MEDS: ATORVASTATIN 40MG TABLET 80 MG PO (20:49)
--- NOTE | 2023-09-02 03:28 | PC.NURSE ---
RESTING QUIETLY IN BED AT THIS TIME. REMAINS IN DROPLET PRECAUTIONS DUE TO FLU A. 02 AT 4LNC. 02 SATS 42%
[2023-09-02 04:00] VITALS: BP 126/64; PULSE 82; RESP 26; TEMP 36.8; O2SAT 94; BMI 42.2
[2023-09-02] MEDS: CEFTRIAXONE 1 GM 1 GM in 0.9 % SODIUM CHLORIDE 50 ML IV ×2 (06:09→17:41)
[2023-09-02 06:20] LABS: POC Glucose,Bedside 133 (70-110)
[2023-09-02 08:00] VITALS: BP 153/72; PULSE 89; RESP 18; TEMP 36.8; O2SAT 92
[2023-09-02] MEDS: CLOPIDOGREL 75MG TAB 75 MG PO (08:27)
[2023-09-02] MEDS: TAMSULOSIN 0.4MG CAPSULE 0.400000000000000022 MG PO (08:27)
[2023-09-02] MEDS: METOPROLOL TARTRATE 50MG TABLET 50 MG PO (08:27)
[2023-09-02] MEDS: FUROSEMIDE 40MG/4ML VIAL 40 MG IV ×2 (08:28→15:51)
[2023-09-02] MEDS: OSELTAMIVIR 75MG CAPSULE 75 MG PO ×2 (08:28→20:30)
[2023-09-02] MEDS: FOLIC ACID 1MG TABLET 1 MG PO (08:28)
[2023-09-02] MEDS: PANTOPRAZOLE 40MG TABLET 40 MG PO (08:28)
[2023-09-02] MEDS: FLUTICASONE PROP 50MCG NASAL SPRAY 16GM 1 SPRAY NS (08:29)
[2023-09-02] MEDS: LISINOPRIL 10MG TABLET 30 MG PO (08:29)
[2023-09-02] MEDS: humaLOG 100 UNITS/ML 3ML VIAL (SSI) SQ ×2 (10:45→16:29)
[2023-09-02 11:01] LABS: POC Glucose,Bedside 193 (70-110)
--- NOTE | 2023-09-02 12:40 | P.PN_ITS ---
Subjective *Date: 09/02/23 *Time: 12:40 Interval history: patient was seen and evaluated at the bedside. No reported acute events overnight, denies chest pain, nausea, vomiting, abdominal pain. SOB is getting better but not back to baseline Exam Data for Last 24 hours Vital signs and Labs for Last 24 Hours: Temp Pulse Resp BP Pulse Ox O2 Del Method O2 Flow Rate 98.2 F 89 18 153/72 H 92 L Nasal Cannula 4 09/02/23 08:00 09/02/23 08:00 09/02/23 08:00 09/02/23 08:00 09/02/23 08:00 09/02/23 10:59 09/02/23 10:59 Laboratory Results - last 24 hr 09/01/23 16:40: POC Glucose 137 H 09/01/23 20:29: POC Glucose 153 H 09/02/23 06:07: POC Glucose 133 H 09/02/23 10:44: POC Glucose 193 H I & O for Last 24 hours: Intake & Output 08/30/23 08/31/23 09/01/23 09/02/23 23:59 23:59 23:59 23:59 Intake Total 2059 / 2059 450 / 450 Output Total 2099 / 2099 150 / 150 Balance -40 / -40 300 / 300 Weight 114.124 kg 114.85 kg Constitutional Constitutional: no acute distress *Routine HEENT Exam Head: Present normocephalic Eye: Present EOMI and PERRL ENT: Present mucous membranes moist *Routine Neck Exam Neck: Present supple; Absent lymphadenopathy *Routine Respiratory Exam Respiratory: Present crackles *Routine Cardiovascular Exam Cardiovascular: Present RRR *Routine Abdominal Exam Abdominal: Present soft and normoactive bowel sounds; Absent tenderness *Routine Extremities Exam Extremities: Absent cyanosis, clubbing or edema *Routine Skin Exam Skin: Present warm; Absent rash *Routine Neurological Exam Neurological: Present alert and oriented X3 Assessment and Plan *Assessment and plan (1) Influenza A with pneumonia: Status: Acute Category: Medical Code(s): J09.X1 - Influenza due to identified novel influenza A virus with pneumonia (2) Volume overload: Status: Acute Qualifiers: Hypervolemia type: other Qualified Code(s): E87.79 - Other fluid overload Category: Medical Code(s): E87.70 - Fluid overload, unspecified (3) COPD (chronic obstructive pulmonary disease): Status: Acute Qualifiers: COPD type: COPD with acute exacerbation Qualified Code(s): J44.1 - Chronic obstructive pulmonary disease with (acute) exacerbation Category: Medical Code(s): J44.9 - Chronic obstructive pulmonary disease, unspecified (4) Coronary atherosclerosis of [place] coronary artery: Status: Acute Qualifiers: [place] vs. transplanted heart: [place] heart Associated angina: without angina Qualified Code(s): I25.10 - Atherosclerotic heart disease of [place] coronary artery without angina pectoris Category: Medical Code(s): I25.10 - Atherosclerotic heart disease of [place] coronary artery without angina pectoris (5) Bilateral kidney masses: Status: Acute Category: Medical Code(s): N28.89 - Other specified disorders of kidney and ureter (6) Diabetes: Status: Acute Qualifiers: Diabetes mellitus type: type 2 Diabetes mellitus tier truck driver insulin use: without tier truck driver use Diabetes mellitus complication status: with other specified complication Qualified Code(s): E11.69 - Type 2 diabetes mellitus with other specified complication Category: Medical Code(s): E11.9 - Type 2 diabetes mellitus without complications (7) Morbid obesity with BMI of 40.0-44.9, adult: Status: Acute Category: Medical Code(s): E66.01 - Morbid (severe) obesity due to excess calories; Z68.41 - Body mass index [BMI] 40.0-44.9, adult Plan -year-old male PMHx of obesity, coronary artery disease, COPD, heart failure on 2 L nasal cannula at baseline, bilateral known renal masses being monitored serially (has had no biopsy or intervention), presents with worsening cough shortness of breath fever and hallucinations. On arrival ER work up as sepsis. underwent for CT of chest, head and abdomen. imaging reviewed. Chest CT concerning for upper lobe pneumonia. Patient is positive for influenza. labs work showed elevated BNP. Findings discussed with ER provoder. Agreed for admission. Plans as follow: -Influenza A w/ PNA: presented with fever, difficulty breathing and visual hallucination. Improved. Levaquin, ceft and Vanco given at ER started on tamiflu BC pending sputum pending CT chest reviewed. Nebulizer PRN maximized O2 sat. Currently 4L -Volumen overload/ Acute CHF lower extremities edema and elevated BNP lasix 80mg given resume daily dose. monitor I/Os and renal function continue IV diuresis -COPD: on 4L NC. cont monitorin g duoneb q6h PRN -CAD, HTN: resume home aspirin, statin, lisinopril metoprolol -Bilateral renal masses: stable. reviewed, CT of abd/pelvis cont monitoring -Hx of diabetes. Currently managed by diet. accucheck before meal Sliding scale as needed Morbidly obese: Abnormal BMI. PCP for f/u On plavix.and protonix Full code
--- NOTE | 2023-09-02 12:46 | PC.NURSE ---
Rounded on patient with MD. Patient had no concerns at this time. All questions answered per MD.
[2023-09-02] MEDS: VANCOMYCIN/WATER FOR INJ (PEG) 1.75 GM/350 ML PIGGYBACK IV (15:01)
[2023-09-02 16:00] VITALS: BP 113/47; PULSE 77; RESP 16; TEMP 36.8; O2SAT 94
[2023-09-02 16:34] LABS: POC Glucose,Bedside 158 (70-110)
--- NOTE | 2023-09-02 17:10 | PC.NURSE ---
Pt O2 titrated down to 3.5 L O2 NC. He is up the chair eating his dinner. Tolerating well. Has voided per urinal and BR this shift. Last BM early in AM. Medications administered per nov. Call light within reach.
[2023-09-02 19:46] VITALS: BP 121/52; PULSE 72; RESP 24; TEMP 36.9; O2SAT 100
[2023-09-02 19:53] VITALS: O2SAT 100
[2023-09-02 20:24] LABS: POC Glucose,Bedside 129 (70-110)
[2023-09-02] MEDS: ATORVASTATIN 40MG TABLET 80 MG PO (20:30)
--- NOTE | 2023-09-03 03:21 | PC.NURSE ---
Pt is alert and oriented x4 and is currently on 3L of O2. Pt has had no complaints and is very pleasant. Pt has not need insulin coverage thus far this shift. Pt denies pain and needs at this time.
[2023-09-03 04:00] VITALS: BP 126/66; PULSE 69; RESP 16; TEMP 37.2; O2SAT 94; BMI 41.9
[2023-09-03] MEDS: CEFTRIAXONE 1 GM 1 GM in 0.9 % SODIUM CHLORIDE 50 ML IV (05:50)
[2023-09-03 05:52] LABS: POC Glucose,Bedside 133 (70-110)
[2023-09-03 07:04] LABS: MANUAL DIFFERENTIAL MANUAL DIFFERENTIAL (MANUAL DIFF)
[2023-09-03 07:09] LABS: Basophils % 0.1 % (0.1-2.0); Eosinophils % 0.4 % (0.1-12.0); Hematocrit 42.1 % (42.0-52.0); Hemoglobin 13.7 g/dL (14.1-18.0); Lymphocytes # 0.7 K/mm3 (0.7-4.5); Lymphocytes % 11.1 % (10-50); Mean Corpuscular HGB Conc 32.5 g/dL (31.8-35.4); Mean Corpuscular Hemoglobin 31.6 pg (27.0-31.2); Mean Corpuscular Volume 97.4 fl (80-94); Mean Platelet Volume 7.6 fl (7.4-10.4); Monocytes # 0.5 K/mm3 (0.1-1.0); Monocytes % 7.2 % (1.7-9.3); Neutrophils # 5.2 K/mm3 (1.8-7.8); Neutrophils % 81.1 % (37.0-80.0); Platelet Count 202 K/mm3 (142-424); Red Blood Count 4.32 M/mm3 (4.60-6.20); Red Cell Distribution Width 14.6 % (11.5-17.5); White Blood Count 6.4 K/mm3 (4.8-10.8)
[2023-09-03 07:18] LABS: Chloride 97 mmol/L (98-107); Potassium 4.3 mmoL/L (3.5-5.1); Sodium 142 mmol/L (136-145)
[2023-09-03 07:21] LABS: Blood Urea Nitrogen 19 mg/dl (9-20); Creatinine Clearance Estimated 49 mL/min (50-200); Estimated Glomerular Filt Rate 108 ml/min (>60); GFR (African American) 131 ML/MIN (>60)
[2023-09-03 07:22] LABS: Calcium 9.2 mg/dl (8.4-10.2); Glucose 143 mg/dl (74-100)
[2023-09-03 07:29] LABS: Anion Gap 14.3 mEq/L (5-15); Carbon Dioxide 35 mmol/L (22.0-30.0)
[2023-09-03 08:00] VITALS: BP 148/78; PULSE 83; RESP 24; TEMP 36.7; O2SAT 92
[2023-09-03 08:25] LABS: Lymphocytes % 12 % (10-50); Monocytes % 5 % (2-9); Neutrophils % 83 % (42-76); Platelet Estimate Normal; RBC Morphology Normal; Total Cells Counted 100
[2023-09-03] MEDS: PANTOPRAZOLE 40MG TABLET 40 MG PO (08:29)
[2023-09-03] MEDS: FUROSEMIDE 40MG/4ML VIAL 40 MG IV ×2 (08:29→16:45)
[2023-09-03] MEDS: LISINOPRIL 10MG TABLET 30 MG PO (08:29)
[2023-09-03] MEDS: TAMSULOSIN 0.4MG CAPSULE 0.400000000000000022 MG PO (08:29)
[2023-09-03] MEDS: METOPROLOL TARTRATE 50MG TABLET 50 MG PO (08:29)
[2023-09-03] MEDS: OSELTAMIVIR 75MG CAPSULE 75 MG PO ×2 (08:29→20:58)
[2023-09-03] MEDS: CLOPIDOGREL 75MG TAB 75 MG PO (08:29)
[2023-09-03] MEDS: FOLIC ACID 1MG TABLET 1 MG PO (08:29)
[2023-09-03 09:49] VITALS: BMI 41.8
[2023-09-03 10:26] LABS: Vancomycin,Trough 11.4 ug/mL (5.0-10.0)
--- NOTE | 2023-09-03 11:15 | PC.NURSE ---
Addendum entered by Stacey Estrella RN 09/03/23 11:15: at rest Original Note: 84% on room air
[2023-09-03] MEDS: IPRATROPIUM/ALBUTEROL 3 ML NEB IH (11:33)
[2023-09-03 11:34] VITALS: PULSE 85
[2023-09-03 11:48] LABS: POC Glucose,Bedside 103 (70-110)
[2023-09-03 14:25] LABS: Vancomycin,Peak 8.9 ug/ml (11-39)
[2023-09-03 16:00] VITALS: BP 129/75; PULSE 72; RESP 18; TEMP 36.7; O2SAT 90
--- NOTE | 2023-09-03 16:19 | EXP.ACUTE.PN ---
Subjective *Date: 09/03/23 *Time: 16:19 Interval history: Patient on 2 to 3 L today. Still weak but ambulating around the room. Still has cough but not very productive today. Afebrile. No nausea or vomiting. Ambulating independently to the bathroom. Medical Exam Vital signs and Labs for Last 24 Hours: Vital Signs Temp Pulse Pulse Resp BP Pulse Ox O2 Del Method 09/03/23 15:00 Nasal Cannula 09/03/23 13:00 Nasal Cannula 09/03/23 11:34 85 09/03/23 11:00 Nasal Cannula 09/03/23 08:00 Nasal Cannula 09/03/23 09:00 Nasal Cannula 09/03/23 08:00 98.1 F 83 24 148/78 H 92 L Nasal Cannula 09/03/23 04:00 98.9 F 69 16 126/66 94 L Nasal Cannula 09/03/23 06:49 Nasal Cannula 09/03/23 04:46 Nasal Cannula 09/03/23 02:39 Nasal Cannula 09/03/23 01:00 Nasal Cannula 09/02/23 22:49 Room Air 09/02/23 21:00 Nasal Cannula 09/02/23 19:53 100 Nasal Cannula 09/02/23 19:46 98.4 F 72 24 121/52 L 100 Nasal Cannula 09/02/23 18:49 Nasal Cannula 09/02/23 16:53 Nasal Cannula O2 Flow Rate 09/03/23 15:00 2 09/03/23 13:00 2 09/03/23 11:34 09/03/23 11:00 2 09/03/23 08:00 2.5 09/03/23 09:00 2.5 09/03/23 08:00 2.5 09/03/23 04:00 3 09/03/23 06:49 3 09/03/23 04:46 3 09/03/23 02:39 3 09/03/23 01:00 3 09/02/23 22:49 3 09/02/23 21:00 3 09/02/23 19:53 3.5 09/02/23 19:46 3.5 09/02/23 18:49 3.5 09/02/23 16:53 4 Intake and Output 09/03/23 09/03/23 09/03/23 07:59 15:59 23:59 Intake Total 120 / 940 820 / 940 Output Total 0 / 0 0 / 0 Balance 120 / 940 820 / 940 Intake: Intake, Oral Amount 120 / 940 820 / 940 Output: Output, Urine Amount 0 / 0 0 / 0 Other: Number of Unmeasured Voids 2 3 Number of Bowel Movements 1 Weight 114.26 kg 114 kg Patient Weight 09/03/23 23:59 Weight 114 kg Laboratory Results - last 24 hr 09/02/23 16:23: POC Glucose 158 H 09/02/23 20:08: POC Glucose 129 H 09/03/23 05:30: POC Glucose 133 H 09/03/23 06:35: WBC 6.4, RBC 4.32 L, Hgb 13.7 L, Hct 42.1, MCV 97.4 H, MCH 31.6 H, MCHC 32.5, RDW 14.6, Plt Count 202 D, MPV 7.6, Neut % (Auto) 81.1 H, Lymph % (Auto) 11.1, [place] % (Auto) 7.2, Eos % (Auto) 0.4, Baso % (Auto) 0.1, Neut # (Auto) 5.2, Lymph # (Auto) 0.7, [place] # (Auto) 0.5, Eos # (Auto) 0.0, Baso # (Auto) 0.0, Total Counted 100, Neutrophils % (Manual) 83 H, Lymphocytes % (Manual) 12, Monocytes % (Manual) 5, Platelet Estimate Normal, RBC Morphology Normal, Sodium 142, Potassium 4.3, Chloride 97 L, Carbon Dioxide 35 H, Anion Gap 14.3, BUN 19 D, Creatinine 0.70 D, Estimated Creat Clear 49, Estimated GFR 108, Est GFR ( Amer) 131 D, Glucose 143 H, Calcium 9.2, Vancomycin Trough 11.4 H 09/03/23 11:39: POC Glucose 103 09/03/23 13:05: Vancomycin Peak 8.9 L I & O for Labs for Last 24 Hours: Intake & Output 08/31/23 09/01/23 09/02/23 09/03/23 23:59 23:59 23:59 23:59 Intake Total 2059 / 2059 752 / 872 940 / 940 Output Total 2100 / 2099 500 / 500 0 / 0 Balance -40 / -40 252 / 372 940 / 940 Weight 114.124 kg 114.85 kg 114 kg Constitutional: Present no acute distress, morbidly obese, chronically ill appearing and cooperative Head: Present atraumatic ENT: Present normal exam Respiratory: Present prolonged expiratory phase, rhonchi, wheezes and normal respiratory effort; Absent crackles Cardiac: Present Reg Rate and Rhythm GI: Present soft and normal bowel sounds; Absent distention or tenderness Extremities: Present normal inspection and full ROM Skin: Present intact; Absent erythema Neuro: Present Grossly Intact, alert, awake, oriented x 3 and moves all extremities Assessment and Plan *Assessment and plan (1) Influenza A with pneumonia: Status: Acute Category: Medical Code(s): J09.X1 - Influenza due to identified novel influenza A virus with pneumonia (2) Volume overload: Status: Acute Qualifiers: Hypervolemia type: other Qualified Code(s): E87.79 - Other fluid overload Category: Medical Code(s): E87.70 - Fluid overload, unspecified (3) COPD (chronic obstructive pulmonary disease): Status: Acute Qualifiers: COPD type: COPD with acute exacerbation Qualified Code(s): J44.1 - Chronic obstructive pulmonary disease with (acute) exacerbation Category: Medical Code(s): J44.9 - Chronic obstructive pulmonary disease, unspecified (4) Coronary atherosclerosis of [place] coronary artery: Status: Acute Qualifiers: [place] vs. transplanted heart: [place] heart Associated angina: without angina Qualified Code(s): I25.10 - Atherosclerotic heart disease of [place] coronary artery without angina pectoris Category: Medical Code(s): I25.10 - Atherosclerotic heart disease of [place] coronary artery without angina pectoris (5) Bilateral kidney masses: Status: Acute Category: Medical Code(s): N28.89 - Other specified disorders of kidney and ureter (6) Diabetes: Status: Acute Qualifiers: Diabetes mellitus type: type 2 Diabetes mellitus senior living insulin use: without senior living use Diabetes mellitus complication status: with other specified complication Qualified Code(s): E11.69 - Type 2 diabetes mellitus with other specified complication Category: Medical Code(s): E11.9 - Type 2 diabetes mellitus without complications (7) Morbid obesity with BMI of 40.0-44.9, adult: Status: Acute Category: Medical Code(s): E66.01 - Morbid (severe) obesity due to excess calories; Z68.41 - Body mass index [BMI] 40.0-44.9, adult Plan -year-old male PMHx of obesity, coronary artery disease, COPD, heart failure on 2 L nasal cannula at baseline, bilateral known renal masses being monitored serially (has had no biopsy or intervention), presents with worsening cough shortness of breath fever and hallucinations. On arrival ER work up as sepsis. underwent for CT of chest, head and abdomen. imaging reviewed. Chest CT concerning for upper lobe pneumonia. Patient is positive for influenza. labs work showed elevated BNP. Findings discussed with ER provoder. Agreed for admission. PSI/port score of 111, class 4 risk. Continues to necessitate inpatient management. Plans as follow: -Influenza A w/ PNA: -COPD with exacerbation presented with fever, difficulty breathing and visual hallucination. Improving Continue Tamiflu for 5 days 75 mg twice daily Continue ceftriaxone 1 g daily for 5 days Continue DuoNebs every 6 hours scheduled Goal saturations greater 90%, currently on 2 L nasal cannula oxygen. Sputum culture, blood culture pending. -Volume overload/ Acute CHF lower extremities edema and elevated BNP lasix 80mg given, monitoring for diuresis. Continue 40 mg IV twice daily. monitor I/Os and renal function -CAD, HTN: Continue home aspirin, statin, lisinopril metoprolol -Bilateral renal masses: stable. reviewed, CT of abd/pelvis -Hx of diabetes. Currently managed by diet. accucheck before meal Sliding scale as needed Morbid obesity complicates all aspects of care Continue Protonix daily Diabetic diet Full code
--- NOTE | 2023-09-03 16:26 | PC.NURSE ---
PT IS SITTING ON THE SOB. ALERT AND ORIENTED X4. EATING AND DRINKING WELL. PT TOLERATED SITTING UP IN THE CHAIR AND AMBULATING IN THE ROOM THIS SHIFT. O2 SATURATION HAS MAINTAINED 90-94% ON 2 L NC. LUNG SOUNDS HAVE SCATTERED WHEEZES/RHONCHI. ABDOMEN SOFT/NON TENDER WITH ACTIVE BOWEL SOUNDS. WILL CONTINUE TO MONITOR.
[2023-09-03 16:55] LABS: POC Glucose,Bedside 107 (70-110)
[2023-09-03 20:00] VITALS: BP 149/81; PULSE 87; RESP 20; TEMP 37.3; O2SAT 92
[2023-09-03 20:38] LABS: POC Glucose,Bedside 116 (70-110)
[2023-09-03] MEDS: ATORVASTATIN 40MG TABLET 80 MG PO (20:57)
[2023-09-04 04:00] VITALS: BP 154/89; PULSE 77; RESP 20; TEMP 36.5; O2SAT 92; BMI 38.3
--- NOTE | 2023-09-04 04:00 | PC.NURSE ---
Pt is alert and oriented x4 and currently on 3L NC and tolerating it well. Pt tolerates ambulating to the BR well and seems to rest well in between trips. Pt did not need insulin coverage this shift. Pt denies pain and other needs at this time.
[2023-09-04 05:09] LABS: POC Glucose,Bedside 131 (70-110)
[2023-09-04 06:44] LABS: Basophils % 0.2 % (0.1-2.0); Eosinophils # 0.1 K/mm3 (0.0-0.4); Eosinophils % 0.8 % (0.1-12.0); Hematocrit 44.8 % (42.0-52.0); Hemoglobin 14.8 g/dL (14.1-18.0); Mean Corpuscular HGB Conc 33.1 g/dL (31.8-35.4); Mean Corpuscular Hemoglobin 31.7 pg (27.0-31.2); Mean Corpuscular Volume 95.9 fl (80-94); Mean Platelet Volume 8.3 fl (7.4-10.4); Monocytes # 0.6 K/mm3 (0.1-1.0); Monocytes % 7.1 % (1.7-9.3); Neutrophils # 6.2 K/mm3 (1.8-7.8); Neutrophils % 78.8 % (37.0-80.0); Platelet Count 215 K/mm3 (142-424); Red Blood Count 4.68 M/mm3 (4.60-6.20); Red Cell Distribution Width 14.7 % (11.5-17.5); White Blood Count 7.9 K/mm3 (4.8-10.8)
[2023-09-04 06:51] LABS: Alanine Aminotransferase 32 U/L (12-78); Albumin Level 3.8 g/dl (3.5-5.0); Albumin/Globulin Ratio 1.3 (1.1-1.8); Alkaline Phosphatase 73 U/L (38-126); Anion Gap 7.1 mEq/L (5-15); Aspartate Amino Transferase 34 U/L (17-59); Bilirubin,Total 0.6 mg/dl (0.2-1.3); Blood Urea Nitrogen 21 mg/dl (9-20); Calcium 9.7 mg/dl (8.4-10.2); Carbon Dioxide 39 mmol/L (22.0-30.0); Chloride 97 mmol/L (98-107); Creatinine Clearance Estimated 85 mL/min (50-200); Estimated Glomerular Filt Rate 108 ml/min (>60); GFR (African American) 131 ML/MIN (>60); Glucose 138 mg/dl (74-100); Magnesium 2.1 mg/dl (1.6-2.3); Potassium 4.1 mmoL/L (3.5-5.1); Sodium 139 mmol/L (136-145); Total Protein,Serum 6.8 g/dl (6.3-8.2)
--- NOTE | 2023-09-04 07:22 | P.DS_ITS ---
General Admission date:: 09/01/23 Discharge date: 09/04/23 HPI HPI HPI: This is a 83-year-old male PMHx of obesity, coronary artery disease, COPD, heart failure on 2 L nasal cannula at baseline, bilateral known renal masses being monitored serially (has had no biopsy or intervention), presents with worsening cough shortness of breath fever and hallucinations. Patient has been feeling ill since at least Saturday. He was supposed to have his regularly scheduled MRI for monitoring of his bilateral renal masses but he felt too sick to come in. He has been having worsening shortness of breath at home. He has been having some visual hallucinations intermittently for the last couple of days. Admitted for further work up and treatment. Hospital Course Hospital Course Hospital Course: 83-year-old male PMHx of obesity, coronary artery disease, COPD, heart failure on 2 L nasal cannula at baseline, bilateral known renal masses being monitored serially (has had no biopsy or intervention), presents with worsening cough shortness of breath fever and hallucinations. On arrival ER work up as sepsis. underwent for CT of chest, head and abdomen. imaging reviewed. Chest CT concerning for upper lobe pneumonia. Patient is positive for influenza. labs work showed elevated BNP. Findings discussed with ER provoder. Agreed for admission. PSI/port score of 111, class 4 risk. Treated with antibiotics and Tamiflu during admission. Patient stable on baseline 2 L nasal cannula oxygen for over 48 hours prior to discharge home. Had normalization in his white count, remained afebrile, tolerating p.o. intake and ambulating independently. Stable for discharge home. Problems addressed as follows: -Influenza A w/ PNA: -COPD with exacerbation presented with fever, difficulty breathing and visual hallucination. Symptoms improved during admission. Was started on Tamiflu and ceftriaxone. Tamiflu was continued at discharge to complete 5 days total. Ceftriaxone transition to cefdinir to complete 5 days of therapy. Sputum culture returned after discharge showing staph, sensitive to dyan quinolones. Contacted patient and treated with additional 5 days of levofloxacin based on sensitivities. Patient weaned to 2 L nasal cannula oxygen which is his baseline oxygen requirement. Verified that he is ordered this continuously though he does not necessarily wear it all the time at home. Sats been appropriate on 2 L. Discussion with patient and about stability for discharge home, Today just to verify stability. Recommend close follow-up with PCP. Continue nebulizer and breathing treatments after discharge. -Volume overload/ Acute CHF lower extremities edema and elevated BNP on admission. Treated with Lasix. Responded well. Transition to oral diuretic at time of discharge to continue to maintain fluid status. -CAD, HTN: Continue home aspirin, statin, lisinopril, metoprolol -Bilateral renal masses: stable. reviewed, CT of abd/pelvis. CD of images provided to patient at discharge for him to take to his urologist. -Hx of diabetes: Currently managed by diet. accucheck before meal Sliding scale as needed during admission. Glucose 130-170 during admission. Extensive discussion with patient on day of discharge and a longer discussion on day prior to discharge with patient and patient's . Discussed patient's clinical improvement with treatment, stability on baseline 2 L nasal cannula oxygen. They were concerned about him discharging home too soon. Expressed my reassurance that patient is on stable needs and therapy that can be performed as an outpatient. He is ambulating independently. Tolerating oral intake. Meeting all discharge criteria from the acute setting. Stressed that it may take him another 1 to 2 weeks to fully recover but this can safely be done in the setting of his home. Spent 40 minutes in discharge counseling, discussion with patient, chart review, documentation, and direct care with patient. Exam Data for Last 24 hours Vital signs and Labs for Last 24 Hours: Temp Pulse Resp BP Pulse Ox O2 Del Method O2 Flow Rate 97.7 F 77 20 154/89 H 92 L Nasal Cannula 2 09/04/23 04:00 09/04/23 04:00 09/04/23 04:00 09/04/23 04:00 09/04/23 04:00 09/04/23 06:49 09/04/23 06:49 Laboratory Results - last 24 hr 09/03/23 06:35: Total Counted 100, Neutrophils % (Manual) 83 H, Lymphocytes % (Manual) 12, Monocytes % (Manual) 5, Platelet Estimate Normal, RBC Morphology Normal, Sodium 142, Potassium 4.3, Chloride 97 L, Carbon Dioxide 35 H, Anion Gap 14.3, BUN 19 D, Creatinine 0.70 D, Estimated Creat Clear 49, Estimated GFR 108, Est GFR ( Amer) 131 D, Glucose 143 H, Calcium 9.2, Vancomycin Trough 11.4 H 09/03/23 11:39: POC Glucose 103 09/03/23 13:05: Vancomycin Peak 8.9 L 09/03/23 16:45: POC Glucose 107 09/03/23 20:31: POC Glucose 116 H 09/04/23 05:00: POC Glucose 131 H 09/04/23 05:42: WBC 7.9, RBC 4.68, Hgb 14.8, Hct 44.8, MCV 95.9 H, MCH 31.7 H, MCHC 33.1, RDW 14.7, Plt Count 215, MPV 8.3, Neut % (Auto) 78.8, Lymph % (Auto) 13.0, [place] % (Auto) 7.1, Eos % (Auto) 0.8, Baso % (Auto) 0.2, Neut # (Auto) 6.2, Lymph # (Auto) 1.0, [place] # (Auto) 0.6, Eos # (Auto) 0.1, Baso # (Auto) 0.0, Sodium 139, Potassium 4.1, Chloride 97 L, Carbon Dioxide 39 H, Anion Gap 7.1, BUN 21 H, Creatinine 0.70, Estimated Creat Clear 85, Estimated GFR 108, Est GFR ( Amer) 131, Glucose 138 H, Calcium 9.7, Magnesium 2.1, Total Bilirubin 0.6, AST 34, ALT 32 D, Alkaline Phosphatase 73, Total Protein 6.8, Albumin 3.8, Globulin 3.0, Albumin/Globulin Ratio 1.3 I & O for Last 24 hours: Intake & Output 09/01/23 09/02/23 09/03/23 09/04/23 23:59 23:59 23:59 23:59 Intake Total 2059 752 / 872 1330 / 1570 240 / 240 Output Total 2099 / 2099 500 / 500 0 / 0 100 / 100 Balance -40 / -40 252 / 372 1330 / 1570 140 / 140 Weight 114.124 kg 114.85 kg 114 kg 104.326 kg Microbiology Reports for the Last 24 Hours: Microbiology 09/01/23 21:50 Sputum - Expectorated Sputum Gram Stain - Final 09/01/23 02:16 Blood Blood Culture - Preliminary 09/01/23 01:53 Blood Blood Culture - Preliminary Constitutional Constitutional: no acute distress, obese, chronically ill appearing and cooperative Comments: Patient frustrated with being discharged. Had discussion with patient and , agree to disagree on patient's clinical stability for discharge. *Routine HEENT Exam Head: Present normocephalic Eye: Present EOMI and PERRL ENT: Present mucous membranes moist *Routine Neck Exam Neck: Present supple; Absent lymphadenopathy *Routine Respiratory Exam Respiratory: Present prolonged expiratory phase, rhonchi and normal respiratory effort; Absent wheezes or crackles *Routine Cardiovascular Exam Cardiovascular: Present RRR *Routine Abdominal Exam Abdominal: Present soft and normoactive bowel sounds; Absent tenderness *Routine Extremities Exam Extremities: Absent cyanosis, clubbing or edema *Routine Skin Exam Skin: Present warm; Absent rash *Routine Neurological Exam Neurological: Present alert, oriented X3 and moving all extremities; Absent altered mental status Routine Psychiatric Exam Comments: irritable Results Data Completed and Pending Labs on day of discharge: Labs from last 24 hours 09/04/23 09/04/23 09/03/23 05:42 05:00 20:31 WBC 7.9 RBC 4.68 Hgb 14.8 Hct 44.8 MCV 95.9 H MCH 31.7 H MCHC 33.1 RDW 14.7 Plt Count 215 MPV 8.3 Neut % (Auto) 78.8 Lymph % (Auto) 13.0 [place] % (Auto) 7.1 Eos % (Auto) 0.8 Baso % (Auto) 0.2 Neut # (Auto) 6.2 Lymph # (Auto) 1.0 [place] # (Auto) 0.6 Eos # (Auto) 0.1 Baso # (Auto) 0.0 Total Counted Neutrophils % (Manual) Lymphocytes % (Manual) Monocytes % (Manual) Platelet Estimate RBC Morphology Sodium 139 Potassium 4.1 Chloride 97 L Carbon Dioxide 39 H Anion Gap 7.1 BUN 21 H Creatinine 0.70 Estimated Creat Clear 85 Estimated GFR 108 Est GFR ( Amer) 131 Glucose 138 H POC Glucose 131 H 116 H Calcium 9.7 Magnesium 2.1 Total Bilirubin 0.6 AST 34 ALT 32 D Alkaline Phosphatase 73 Total Protein 6.8 Albumin 3.8 Globulin 3.0 Albumin/Globulin Ratio 1.3 Vancomycin Peak Vancomycin Trough 09/03/23 09/03/23 09/03/23 16:45 13:05 11:39 WBC RBC Hgb Hct MCV MCH MCHC RDW Plt Count MPV Neut % (Auto) Lymph % (Auto) [place] % (Auto) Eos % (Auto) Baso % (Auto) Neut # (Auto) Lymph # (Auto) [place] # (Auto) Eos # (Auto) Baso # (Auto) Total Counted Neutrophils % (Manual) Lymphocytes % (Manual) Monocytes % (Manual) Platelet Estimate RBC Morphology Sodium Potassium Chloride Carbon Dioxide Anion Gap BUN Creatinine Estimated Creat Clear Estimated GFR Est GFR ( Amer) Glucose POC Glucose 107 103 Calcium Magnesium Total Bilirubin AST ALT Alkaline Phosphatase Total Protein Albumin Globulin Albumin/Globulin Ratio Vancomycin Peak 8.9 L Vancomycin Trough 09/03/23 06:35 WBC RBC Hgb Hct MCV MCH MCHC RDW Plt Count MPV Neut % (Auto) Lymph % (Auto) [place] % (Auto) Eos % (Auto) Baso % (Auto) Neut # (Auto) Lymph # (Auto) [place] # (Auto) Eos # (Auto) Baso # (Auto) Total Counted 100 Neutrophils % (Manual) 83 H Lymphocytes % (Manual) 12 Monocytes % (Manual) 5 Platelet Estimate Normal RBC Morphology Normal Sodium 142 Potassium 4.3 Chloride 97 L Carbon Dioxide 35 H Anion Gap 14.3 BUN 19 D Creatinine 0.70 D Estimated Creat Clear 49 Estimated GFR 108 Est GFR ( Amer) 131 D Glucose 143 H POC Glucose Calcium 9.2 Magnesium Total Bilirubin AST ALT Alkaline Phosphatase Total Protein Albumin Globulin Albumin/Globulin Ratio Vancomycin Peak Vancomycin Trough 11.4 H Preliminary micro results at discharge 09/01/23 02:16 Blood Culture - Preliminary Blood 09/01/23 01:53 Blood Culture - Preliminary Blood DS: Diagnosis Discharge Diagnosis (1) Influenza A with pneumonia: Status: Acute Code(s): J09.X1 - Influenza due to identified novel influenza A virus with pneumonia (2) Volume overload: Status: Acute Code(s): E87.70 - Fluid overload, unspecified Qualifiers: Hypervolemia type: other Qualified Code(s): E87.79 - Other fluid overload (3) COPD (chronic obstructive pulmonary disease): Status: Acute Code(s): J44.9 - Chronic obstructive pulmonary disease, unspecified Qualifiers: COPD type: COPD with acute exacerbation Qualified Code(s): J44.1 - Chronic obstructive pulmonary disease with (acute) exacerbation (4) Coronary atherosclerosis of [place] coronary artery: Status: Acute Code(s): I25.10 - Atherosclerotic heart disease of [place] coronary artery without angina pectoris Qualifiers: Associated angina: without angina [place] vs. transplanted heart: [place] heart Qualified Code(s): I25.10 - Atherosclerotic heart disease of [place] coronary artery without angina pectoris (5) Bilateral kidney masses: Status: Acute Code(s): N28.89 - Other specified disorders of kidney and ureter (6) Diabetes: Status: Acute Code(s): E11.9 - Type 2 diabetes mellitus without complications Qualifiers: Diabetes mellitus complication status: with other specified complication Diabetes mellitus superintendent container terminal insulin use: without superintendent container terminal use Diabetes mellitus type: type 2 Qualified Code(s): E11.69 - Type 2 diabetes mellitus with other specified complication (7) Morbid obesity with BMI of 40.0-44.9, adult: Status: Acute Code(s): E66.01 - Morbid (severe) obesity due to excess calories; Z68.41 - Body mass index [BMI] 40.0-44.9, adult Meds Home Medications and Allergies Home Medications Medication Instructions Recorded Confirmed Type atorvastatin 80 mg tablet 80 mg PO HS Cholesterol 90 days 01/21/18 09/01/23 History folic acid 1 mg tablet 1 mg PO DAILY Supplement 30 days 01/21/18 09/01/23 History methotrexate sodium 2.5 mg tablet 15 mg PO FR psoriasis 04/14/18 09/01/23 History tamsulosin 0.4 mg capsule 0.4 mg PO DAILY Prostate 04/14/18 09/01/23 History hyperplasia clopidogrel 75 mg tablet 75 mg PO DAILY antiplatelet 06/09/21 09/01/23 History furosemide 40 mg tablet 40 mg PO DAILY DIURETIC 06/09/21 09/01/23 History acetaminophen 300 mg-codeine 30 mg 1 tab PO Q6HP PRN Pain 09/01/23 09/01/23 History tablet lisinopril 30 mg tablet 30 mg PO DAILY Hypertension 09/01/23 09/01/23 History metoprolol tartrate 50 mg tablet 50 mg PO BID hypertenson 09/01/23 09/01/23 History nitroglycerin 0.4 mg sublingual 0.4 mg sublingual Q5MINP PRN Chest 09/01/23 09/01/23 History tablet Pain cefdinir 300 mg capsule 300 mg PO BID 1 day #2 caps 09/04/23 Rx ipratropium 0.5 mg-albuterol 3 mg 3 ml inhalation Q6HP PRN Shortness 09/04/23 Rx (2.5 mg base)/3 mL nebulization Of Breath 30 days #100 ea soln oseltamivir 75 mg capsule (Tamiflu) 75 mg PO BID 2 days #3 caps 09/04/23 Rx New Prescriptions to Start Prescriptions: Gonzalo Villeda ipratropium-albuterol Gonzalo Grace oseltamivir [Tamiflu] Gonzalo Grace Allergies Allergy/AdvReac Type Severity Reaction Status Date / Time No Known Allergies Allergy Verified 07/03/21 13:47 Discharge Plan Disposition Patient Disposition: Home Health Service Condition: Fair Discharge Order Discharge Orders: Discharge Order (Routine); Ordered 09/04/23 Ordered By: Gonzalo Grace Follow up Plan Follow up with: Fran So MD [Primary Care Provider] - 09/11/23 10:00 am Prescriptions/Medication Reconciliation: New oseltamivir [Tamiflu] 75 mg Capsule 75 mg PO BID 2 Days Qty: 3 0RF cefdinir 300 mg capsule 300 mg PO BID 1 Days Qty: 2 0RF Rx Instructions: first dose morning of 09/05 ipratropium-albuterol 0.5 mg-3 mg(2.5 mg base)/3 mL Solution For Nebulization 3 ml inhalation Q6HP PRN (Reason: Shortness Of Breath) 30 Days Qty: 100 0RF Continued folic acid 1 mg tablet 1 mg PO DAILY 30 Days atorvastatin 80 mg tablet 80 mg PO HS 90 Days methotrexate sodium 2.5 MG tablet 15 mg PO FR Patient Comments: 6 TABLETS BY MOUTH WEEKLY tamsulosin 0.4 MG capsule 0.4 mg PO DAILY Patient Comments: take 1 capsule by mouth once daily furosemide 40 MG tablet 40 mg PO DAILY clopidogrel 75 MG tablet 75 mg PO DAILY acetaminophen-codeine 300-30 mg tablet 1 tab PO Q6HP PRN (Reason: Pain) metoprolol tartrate 50 mg tablet 50 mg PO BID lisinopril 30 mg tablet 30 mg PO DAILY nitroglycerin 0.4 mg tablet, sublingual 0.4 mg sublingual Q5MINP PRN (Reason: Chest Pain) Patient Comments: DISSOLVE ONE TABLET UNDER THE TONGUE EVERY 5 MINUTES NEEDED FOR CHEST PAIN. DO NOT EXCEED A TOTAL OF 3 DOSES IN 15 MINUTES Other Ambulatory Orders: Home Medical Equipment (Routine) Location: None Selected Ordered By: Gonzalo Grace Problem Reconciliation Problems Reviewed?: Yes Patient Discharge Instructions ACTIVITY: Continue current activity and Ambulate as tolerated DIET: continue same diet Patient Instructions: Chronic Obstructive Pulmonary Disease, DI for Chronic Obstructive Pulmonary Disease, DI for Influenza -- Adult Providers Primary Care Provider: Fran So Provider: Ene Malone Attending Provider: Ene Malone
[2023-09-04 08:00] VITALS: BP 144/90; PULSE 68; RESP 18; TEMP 36.4; O2SAT 95
[2023-09-04] MEDS: CLOPIDOGREL 75MG TAB 75 MG PO (08:04)
[2023-09-04] MEDS: FOLIC ACID 1MG TABLET 1 MG PO (08:04)
[2023-09-04] MEDS: CEFTRIAXONE 1 GM 1 GM in 0.9 % SODIUM CHLORIDE 50 ML IV (08:04)
[2023-09-04] MEDS: PANTOPRAZOLE 40MG TABLET 40 MG PO (08:05)
[2023-09-04] MEDS: METOPROLOL TARTRATE 50MG TABLET 50 MG PO (08:05)
[2023-09-04] MEDS: FUROSEMIDE 40MG/4ML VIAL 40 MG IV (08:05)
[2023-09-04] MEDS: TAMSULOSIN 0.4MG CAPSULE 0.400000000000000022 MG PO (08:05)
[2023-09-04] MEDS: LISINOPRIL 10MG TABLET 30 MG PO (08:05)
--- NOTE | 2023-09-04 08:58 | SW/DCPLANNER ---
Addendum entered by Maricruz Ndiaye 09/04/23 15:28: Olya w/ [facility] stated that services will begin Thursday 09/06 for this patient. Original Note: I spoke w/ this patient regarding home health services at time of discharge. Per Dr Grace home health services would be beneficial for this patient. After a lengthy discussion w/ patient regarding home health he is agreeable to services. Patient prefers to use local agency [facility]. Patient information/order will be faxed this AM. The plan is for this patient to discharge home today.
[2023-09-04] MEDS: OSELTAMIVIR 75MG CAPSULE 75 MG PO (09:18)
[2023-09-04] MEDS: IPRATROPIUM/ALBUTEROL 3 ML NEB IH (10:34)
[2023-09-04 10:35] VITALS: PULSE 82; PULSE 85
--- NOTE | 2023-09-05 13:19 | CARE MANAGER ---
Contacted patient related to hospital discharge. They received medications prior to DC and are aware of follow up appointment. MATTIE Alba
--- NOTE | 2023-09-06 15:21 | EXP.EVENT.NO ---
Patient sputum culture returned. Obtained on the at 2150, returned positive on the . Light growth of staph. Sensitive to levofloxacin. Contacted patient and sent in Levaquin 750 daily for 5 days. In speaking to patient, he has been afebrile since getting home and completing antibiotics and Tamiflu. No change in sputum. No increase in shortness of breath. Feeling well. Covering precautionarily given pathogen that grew on sputum culture.
--- NOTE | 2023-09-07 17:27 | PC.NURSE ---
Addendum entered by Alycia Fry RN 09/12/23 09:26: sputum culture received, discussed with dr montilla, no new orders. no action needed Addendum entered by Alycia Fry RN 09/07/23 17:28: POSITIVE BLOOD CULTURE RECEIVED FROM DANIELLE IN LAB, RESULTS GIVEN TO DR. AVENDAÑO. SUGGEST CONTAMINATION. NO NEW ORDERS Original Note: CRITICAL
== END 2023-09-04 13:13 | disposition home health service (06) | DRG 193 ==
LOC: ER 04:03 → 2ND 04:34
PROVIDERS: Internal Medicine Adolescent Medicine; Nurse Practitioner Family; Admitting Provider Internal Medicine; Emergency Provider Emergency Medicine; PCP Internal Medicine Adolescent Medicine; Visit Provider Internal Medicine
DX: J09.X1 Influenza due to identified novel influenza A virus with pneumonia (principal); I50.33 Acute on chronic diastolic (congestive) heart failure; J44.0 Chronic obstructive pulmonary disease with (acute) lower respiratory infection; I11.0 Hypertensive heart disease with heart failure; Z99.81 Dependence on supplemental oxygen; Z95.1 Presence of aortocoronary bypass graft; Z95.5 Presence of coronary angioplasty implant and graft; Z96.653 Presence of artificial knee joint, bilateral; E66.01 Morbid (severe) obesity due to excess calories; Z68.38 Body mass index [BMI] 38.0-38.9, adult; E11.9 Type 2 diabetes mellitus without complications; N28.89 Other specified disorders of kidney and ureter
CPT/HCPCS: 36415; 70470; 71045; 71275; 74177; 80048; 80053; 80202; 81001; 82803; 82962; 83605; 83735; 83880; 84484; 85007; 85014; 85018; 85025; 85048; 85049; 85378; 87040; 87070; 87086; 87205; 87636; 93005; 94640; 99291; J0456; J0696; J3370; Q9967

== ENCOUNTER 2024-05-21 12:44 | Inpatient (IN) | payer MEDICARE, SELFPAY ==
[2024-05-21] VITALS (17 sets, daily range): BP systolic 106–154; BP diastolic 59–100; PULSE 60–97; RESP 12–29; TEMP 36.9–37.4; O2SAT 74–99; BMI 38.7; BMI 41.0
--- NOTE | 2024-05-21 12:59 | XR_ITS ---
FINAL REPORT CLINICAL HISTORY: SOA, resp failure COMPARISON: 09/01/2023 FINDINGS: A single portable view of the chest was obtained. The patient has undergone a prior midline sternotomy. Cardiomegaly is present, as well as pulmonary vascular congestion which is worse than seen on the prior exam. The mediastinum is within normal limits. Bibasilar opacities are present, more prominent than seen on the prior exam, likely pneumonia. The bony thorax is intact. IMPRESSION: Cardiomegaly with increasing pulmonary vascular congestion when compared to the prior exam from August 2023. Bibasilar opacities are present as well, more prominent than seen on the prior exam, likely pneumonia. Reviewed, Interpreted and Dictated by Jason Pat III, MD Transcribed by Kallie Holley Authenticated and [facility]
[2024-05-21] MEDS: IPRATROPIUM/ALBUTEROL 3 ML NEB 6 ML IH (13:23)
[2024-05-21] MEDS: METHYLPREDNISOLONE SOD SUCC 125MG VIAL 125 MG IV (13:23)
[2024-05-21] MEDS: FUROSEMIDE 40MG/4ML VIAL 80 MG IV (13:23)
--- NOTE | 2024-05-21 13:24 | ED_ITS ---
Discharge Plan Disposition Patient Disposition: Admitted Clinical Impressions Clinical Impression: Respiratory failure Discharge ED Provider: Isabela Yepez HPI General Chief Complaint: Shortness of Breath/Dyspnea Stated Complaint: soa Time Seen by Provider: 05/21/24 12:57 Mode of Arrival: Wheelchair Source of Information: Patient and Spouse Limitations: No Limitations Description of Symptoms (Recalled from ER Triage Doc. by RN): short of breath, swelling all over. History of Present Illness HPI narrative: This patient is an 84-year-old male with a history of CAD status post CABG, CHF, chronic respiratory failure on 2 L nasal cannula at home, COPD, hypertension, hyperlipidemia presenting to the emergency department for evaluation with concern for shortness of breath and swelling all over. Patient reports that he has high progressively worsening shortness of breath and swelling over the last 3 days. He notes that he has had no fevers, chills, cough, chest pain, or other concerns. He notes bilateral leg swelling. He is on Lasix at home which he reports compliance with. Despite this, he reports he had to sleep sitting up. Related Data Home Medications ?Medication ?Instructions ?Recorded ?Confirmed atorvastatin 80 mg tablet 80 mg PO HS Cholesterol 90 days 01/21/18 05/21/24 folic acid 1 mg tablet 1 mg PO DAILY Supplement 30 days 01/21/18 05/21/24 methotrexate sodium 2.5 mg tablet 15 mg PO FR psoriasis 04/14/18 05/21/24 tamsulosin 0.4 mg capsule 0.4 mg PO DAILY Prostate 04/14/18 05/21/24 hyperplasia clopidogrel 75 mg tablet 75 mg PO DAILY antiplatelet 06/09/21 05/21/24 furosemide 40 mg tablet 40 mg PO DAILY DIURETIC 06/09/21 05/21/24 acetaminophen 300 mg-codeine 30 mg 1 tab PO Q6HP PRN Pain 09/01/23 05/21/24 tablet lisinopril 30 mg tablet 30 mg PO DAILY Hypertension 09/01/23 05/21/24 metoprolol tartrate 50 mg tablet 50 mg PO BID hypertenson 09/01/23 05/21/24 nitroglycerin 0.4 mg sublingual 0.4 mg sublingual Q5MINP PRN Chest 09/01/23 05/21/24 tablet Pain oxycodone 5 mg tablet 5 mg PO Q6H PRN Pain (Scale Score 05/21/24 05/21/24 4-6) Previous Rx's ?Medication ?Instructions ?Recorded ipratropium 0.5 mg-albuterol 3 mg 3 ml inhalation Q6HP PRN Shortness 09/04/23 (2.5 mg base)/3 mL nebulization Of Breath 30 days #100 ea soln Allergies Allergy/AdvReac Type Severity Reaction Status Date / Time No Known Allergies Allergy Verified 07/03/21 13:47 [facility] Disclaimer: The information contained in this section may have been updated after the patient was seen, as this information can be updated by other users. Medical History Hypertension Kidney stones Diabetes Surgical History History of bilateral knee replacement History of heart artery stent Hx of CABG Family History Other No significant family history Social History Smoking Status: Never smoker alcohol intake: never substance use type: denies use current occupational status: retired Travel in the last 8 weeks: None household members: spouse housing: house caffeine: No ROS Obtained: Yes All systems reviewed & no additional complaints except as documented Physical Exam General General appearance: alert and obese Comment: In respiratory distress Head Head exam: atraumatic and normocephalic Eye Eye exam: Present normal appearance, PERRL and EOMI ENT ENT exam: Present normal exam, normal oropharynx, mucous membranes moist and normal external ear exam Neck Neck exam: Present normal inspection, full ROM and trachea midline; Absent tenderness Chest Chest inspection: Present normal inspection and symmetric chest wall rise; Absent tenderness Respiratory Respiratory exam: Present respiratory distress, wheezes, accessory muscle use, prolonged expiratory phase and other (Bilateral crackles and rhonchi); Absent stridor Cardiovascular Cardiovascular exam: Present regular rate and normal rhythm Abdominal Exam Abdominal exam: Present soft; Absent distention, tenderness or guarding Extremities Exam Extremities exam: Present full ROM, normal capillary refill and edema (Bilateral lower extremity edema); Absent tenderness Back Exam Back exam: Present normal inspection and full ROM; Absent tenderness Neurological Exam Neurological exam: Present alert, oriented X3 and CN II-XII intact; Absent motor sensory deficit Psychiatric Psychiatric exam: Present normal affect and normal mood Skin Skin exam: Present warm and dry HEART Score HEART Score HEART Score assessment performed?: Yes History (anamnesis): Slightly suspicious ECG: Normal Age: >65 years Risk factors: Atherosclerosis history Troponin: </= normal limit HEART Score: 4 Critical Care Critical Care Time Critical Care Time: Yes Attestation: On 05/21/24, the high probability of a clinically significant, sudden or life threatening deterioration of the following system(s) required my full and direct attention, intervention and personal management. The time I documented below is in addition to time spent performing reported procedures but includes the following listed in this critical care notation. Total Time Total Critical Care Time: 30 Medical Decision Making Heri Inquiry Pt receiving controlled substance: No Vital Signs Vital Signs: 05/21/24 12:44 05/21/24 12:57 05/21/24 13:30 Temperature 98.8 F Temperature Source Axillary Pulse Rate 70 Pulse Rate [Right] 89 Respiratory Rate 26 H 19 Blood Pressure 152/74 H Blood Pressure [Right Arm] 152/74 H Blood Pressure Mean [Right Arm] 100 02 Sat by Pulse Oximetry 74 L 89 L 99 Oxygen Delivery Method Nasal Cannula Nasal Cannula BiPAP Oxygen Flow Rate (LPM) 2 4 05/21/24 14:00 05/21/24 14:30 05/21/24 15:06 Temperature 98.4 F Temperature Source Pulse Rate 71 74 74 Pulse Rate [Right] Respiratory Rate 12 17 25 H Blood Pressure 141/70 H 145/80 H 153/80 H Blood Pressure [Right Arm] Blood Pressure Mean [Right Arm] 02 Sat by Pulse Oximetry 96 98 Oxygen Delivery Method BiPAP BiPAP BiPAP Oxygen Flow Rate (LPM) Lab Data Labs: Lab Results 05/21/24 12:59: VBG pH 7.28 L, VBG pCO2 70.2 H, VBG pO2 38.9, VBG HCO3 32.5 H, V BG Total CO2 34.7 H, VBG O2 Saturation 71.2 H, VBG Base Excess 5.9 H, VBG Lactic Acid 1.4, SARS-CoV-2 (PCR) Not detected, Influenza A Untype (PCR) Not detected, Influenza Type B (PCR) Not detected 05/21/24 13:20: WBC 9.7, RBC 4.25 L, Hgb 12.7 L, Hct 43.6, MCV 102.5 H, MCH 29.9, MCHC 29.1 L, RDW 15.2, Plt Count 231, MPV 8.4, Neut % (Auto) 80.1 H, Lymph % (Auto) 10.3, Ashley % (Auto) 7.4, Eos % (Auto) 1.8, Baso % (Auto) 0.4, Neut # (Auto) 7.8, Lymph # (Auto) 1.0, Ashley # (Auto) 0.7, Eos # (Auto) 0.2, Baso # (Auto) 0.0, D-Dimer 0.60 H, Sodium 141, Potassium 5.0, Chloride 100, Carbon Dioxide 37 H, Anion Gap 9.0, BUN 19, Creatinine 0.80, Estimated Creat Clear 88, Estimated GFR 93, Est GFR ( Amer) 112, Glucose 128 H, Lactate 1.1, Calcium 9.7, Total Bilirubin 0.5, AST 21, ALT 20, Alkaline Phosphatase 74, Troponin I < 0.01, C-Reactive Protein 5.7 H, NT-Pro-B Natriuret Pep 2010 H, Total Protein 6.6, Albumin 3.6, Globulin 3.0, Albumin/Globulin Ratio 1.2, Procalcitonin 0.103, TSH 1.14, Thyroxine (T4) 5.4 L 05/21/24 13:20 05/21/24 13:20 Response Orders (Tests/Meds): ED MEDICATIONS Generic Name Dose Route Start Last Admin Trade Name Freq PRN Reason Stop Dose Admin Acetaminophen 1,000 mg 05/21/24 14:29 Acetaminophen 325mg Tab PO 06/20/24 14:28 Q6HP PRN Fever or Mild Pain (1-3) Albuterol/Ipratropium 3 ml 05/21/24 18:00 Ipratropium/Albuterol 3 Ml Counts include 234 beds at the [facility] 06/20/24 17:59 Q6RT SEMAJ Budesonide 0.5 mg 05/21/24 18:00 Budesonide 0.5mg/2ml Neb 06/20/24 17:59 BIDRT SEMAJ Bumetanide 2 mg 05/21/24 16:00 Bumetanide 1mg/4ml Vial IV 06/20/24 15:59 BIDL SMEAJ Carvedilol 3.125 mg 05/21/24 21:00 Carvedilol 3.125mg Tablet PO 06/20/24 20:59 BID SEMAJ Docusate Sodium 100 mg 05/21/24 14:45 05/21/24 15:18 Docusate Sodium 100 Mg Capsule PO 06/20/24 14:44 100 mg DAILY SEMAJ Administration Doxycycline Hyclate 100 mg 05/21/24 21:00 Doxycycline Hycl 100 Mg Tablet PO 05/31/24 20:59 BID SEMAJ Empagliflozin 10 mg 05/21/24 14:45 05/21/24 15:18 Empagliflozin 10mg Tablet PO 06/20/24 14:44 10 mg DAILY SEMAJ Administration Enoxaparin Sodium 40 mg 05/21/24 14:45 05/21/24 15:18 Enoxaparin 40mg/0.4ml Syringe SQ 06/20/24 14:44 40 mg DAILY SEMAJ Administration Irbesartan 150 mg 05/21/24 14:45 05/21/24 15:18 Irbesartan 150mg Tab PO 06/20/24 14:44 150 mg DAILY SEMAJ Administration Ondansetron HCl 4 mg 05/21/24 14:29 Ondansetron 4mg/2ml Vial IV 06/20/24 14:28 Q8HP PRN Nausea Pantoprazole Sodium 40 mg 05/21/24 21:00 Pantoprazole 40mg Tablet PO 06/20/24 20:59 HS SEMAJ Prednisone 40 mg 05/21/24 14:45 05/21/24 15:18 Prednisone 20mg Tab PO 05/26/24 14:44 40 mg DAILY SEMAJ Administration Sodium Chloride 10 ml 05/21/24 14:29 Sodium Chloride 0.9% 10ml Flush Syringe IV 06/20/24 14:28 NEEDED PRN Maintain IV Site Spironolactone 25 mg 05/21/24 14:45 05/21/24 15:18 Spironolactone 25mg Tablet PO 06/20/24 14:44 25 mg DAILY SEMAJ Administration Discontinued Medications Generic Name Dose Route Start Last Admin Trade Name Freq PRN Reason Stop Dose Admin Albuterol/Ipratropium 6 ml 05/21/24 13:00 05/21/24 13:23 Ipratropium/Albuterol 3 Ml Neb IH 05/21/24 13:01 6 ml ONCE ONE Administration Furosemide 80 mg 05/21/24 13:00 05/21/24 13:23 Furosemide 40mg/4ml Vial IV 05/21/24 13:01 80 mg ONCE ONE Administration Methylprednisolone Sodium Succinate 125 mg 05/21/24 13:00 05/21/24 13:23 Methylprednisolone Sod Succ 125mg Vial IV 05/21/24 13:01 125 mg ONCE ONE Administration ORDERS Category Date Time Status CXR --portable [XR chest portable] Stat Exams 05/21/24 12:59 Completed BNP [NT Pro Brain Natriuretic Pep.] Stat Lab 05/21/24 13:20 Completed CBC w/Auto Diff [Complete Blood Count Auto Diff] Stat Lab 05/21/24 13:20 Completed CMP [Comprehensive Metabolic Panel] Stat Lab 05/21/24 13:20 Completed CRP [C-Reactive Protein] Stat Lab 05/21/24 13:20 Completed D-Dimer Stat Lab 05/21/24 13:20 Completed Lactic Acid Stat Lab 05/21/24 13:20 Completed Procalcitonin Stat Lab 05/21/24 13:20 Completed Rapid PCR Covid and Flu A/B Stat Lab 05/21/24 12:59 Completed T4 (Thyroxine) Stat Lab 05/21/24 13:20 Completed TSH [Thyroid Stimulating Hormone] Stat Lab 05/21/24 13:20 Completed Trop I [Troponin I] Stat Lab 05/21/24 13:20 Completed Troponin I Q3H Lab 05/21/24 16:00 Ordered Troponin I Q3H Lab 05/21/24 19:00 Ordered VBG [Venous Blood Gas] Stat RT 05/21/24 12:59 Completed ECG Data Tracing #1: Attestation: I reviewed this ECG and interpreted as documented below: ECG Narrative: Normal sinus rhythm with a ventricular rate of 83 bpm. Right ventricular conduction delay. Q waves in the inferior leads with no acute ST changes concerning for ischemia. ECG initial impression date: 05/21/24 ECG initial impression time: 13:53 MDM Narrative Medical Decision Narrative: In summary, this patient is a 84-year-old male presenting to the Emergency Department for evaluation of shortness of breath. Differential diagnoses considered include but are not limited to acute on chronic respiratory failure, COPD exacerbation, CHF exacerbation, PE, pneumonia. Ruling out the most morbid conditions drove assessment. It should be noted patient's history includes COPD and CHF which are not at goal therapy. This complicates all aspects of care by increasing patient's risk for morbidity. I reviewed patient's past medical records and noted previous evaluation and diagnosis of bilateral kidney masses in the past. On exam, the patient is in acute respiratory distress with crackles, rhonchi, and bilateral lower extremity edema. No fevers. He is hypoxic on his home oxygen as well as continued to be hypoxic on 4 L nasal cannula. Workup included lab evaluation to evaluate for infectious and cardiac causes of his symptoms as well as D-dimer to rule out PE. I independently interpreted chest x-ray prior to the radiologist read and noted concerns for pulmonary edema with bilateral patchy infiltrates. Please see their read for final interpretation. Labs were obtained that demonstrated decompensated respiratory acidosis, elevated BNP. Inflammatory markers are reassuring and the patient has no significant leukocytosis. He denies any increase in cough or sputum production.. D-dimer is negative based on age-adjusted criteria. Patient was given DuoNebs x 3 as well as IV methylprednisolone given his respiratory distress in hopes of this could help if it is related to COPD exacerbation. He was also given IV Lasix given his signs of volume overload on clinical exam. He was started on BiPAP given volume overload and decompensated respiratory acidosis. He tolerated this well. Ultimately, I feel he would benefit from admission for decompensated respiratory failure, CHF exacerbation, and volume overload. I had an interactive discussion with the hospitalist to admit the patient
--- NOTE | 2024-05-21 13:35 | PC.NURSE ---
XR AT BEDSIDE
[2024-05-21 13:36] LABS: Lactate Venous 1.4 mmol/L (0.4-2.0); VBG Base Excess 5.9 mmol/L (-2.4-2.3); VBG HCO3 32.5 mmol/L (23-30); VBG Oxygen Saturation 71.2 % (50-70); VBG PCO2 70.2 mmol/L (35-51); VBG PH 7.28 mmol/L (7.31-7.41); VBG PO2 38.9 mmol/L (28-40); VBG Total CO2 34.7 mmol/L (23-27)
[2024-05-21 13:37] LABS: Basophils % 0.4 % (0.1-2.0); Eosinophils # 0.2 K/mm3 (0.0-0.4); Eosinophils % 1.8 % (0.1-12.0); Hematocrit 43.6 % (42.0-52.0); Hemoglobin 12.7 g/dL (14.1-18.0); Lymphocytes % 10.3 % (10-50); Mean Corpuscular HGB Conc 29.1 g/dL (31.8-35.4); Mean Corpuscular Hemoglobin 29.9 pg (27.0-31.2); Mean Corpuscular Volume 102.5 fl (80-94); Mean Platelet Volume 8.4 fl (7.4-10.4); Monocytes # 0.7 K/mm3 (0.1-1.0); Monocytes % 7.4 % (1.7-9.3); Neutrophils # 7.8 K/mm3 (1.8-7.8); Neutrophils % 80.1 % (37.0-80.0); Platelet Count 231 K/mm3 (142-424); Red Blood Count 4.25 M/mm3 (4.60-6.20); Red Cell Distribution Width 15.2 % (11.5-17.5); White Blood Count 9.7 K/mm3 (4.8-10.8)
[2024-05-21 13:39] LABS: Coronavirus 19, PCR Not Detected (NotDetected); Influenza A, PCR Not Detected (NotDetected); Influenza B, PCR Not Detected (NotDetected)
[2024-05-21 13:46] LABS: Alanine Aminotransferase 20 U/L (12-78); Albumin Level 3.6 g/dl (3.5-5.0); Albumin/Globulin Ratio 1.2 (1.1-1.8); Alkaline Phosphatase 74 U/L (38-126); Aspartate Amino Transferase 21 U/L (17-59); Bilirubin,Total 0.5 mg/dl (0.2-1.3); Blood Urea Nitrogen 19 mg/dl (9-20); Calcium 9.7 mg/dl (8.4-10.2); Chloride 100 mmol/L (98-107); Creatinine Clearance Estimated 88 mL/min (50-200); Estimated Glomerular Filt Rate 93 ml/min (>60); GFR (African American) 112 ML/MIN (>60); Glucose 128 mg/dl (74-100); Sodium 141 mmol/L (136-145); Total Protein,Serum 6.6 g/dl (6.3-8.2)
[2024-05-21 13:47] LABS: Lactic Acid 1.1 mmol/L (0.7-2.1)
--- NOTE | 2024-05-21 13:50 | ECG_ITS ---
APPROVED REPORT Exam: Resting ECG HR:83 bpm ECG Measurements Heart Rate 83 AXES IL 152 P 67 QRSd 101 QRS 34 QT 364 T 29 QTc 404 Conclusion SINUS RHYTHM POSSIBLE RIGHT VENTRICULAR CONDUCTION DELAY [RSR (QR) IN V1/V2] ABNORMAL ECG Electronically signed by : RUBINA LOPEZ, 05/21/2024 17:03:33
[2024-05-21 13:52] LABS: C-Reactive Protein 5.7 mg/L (0-4)
[2024-05-21 13:55] LABS: Carbon Dioxide 37 mmol/L (22.0-30.0)
[2024-05-21 14:01] LABS: NT Pro Brain Natriuretic Pep. 2010 pg/mL (0-450)
[2024-05-21 14:06] LABS: T4 (Thyroxine) 5.4 ug/dl (5.53-11.0)
[2024-05-21 14:07] LABS: Procalcitonin 0.103 ng/mL (0.0-2.0)
--- NOTE | 2024-05-21 14:16 | PC.NURSE ---
DR LOPEZ SPEAKING WITH HOSPITALIST
--- NOTE | 2024-05-21 14:19 | PC.NURSE ---
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
[2024-05-21 14:20] LABS: Thyroid Stimulating Hormone 1.14 uIU/mL (0.465-4.68)
--- NOTE | 2024-05-21 14:22 | PC.NURSE ---
DR LOPEZ AT BEDSIDE TO UPDATE PT AND FAMILY
--- NOTE | 2024-05-21 14:29 | CA_ITS ---
APPROVED REPORT EXAM: Comprehensive 2D, Doppler, and color-flow Echocardiogram [employer] C[employer] Farmer: Elena Austin RT(R) Ht: 5 ft 6 in Wt: 240lbs BSA: 2.16 BP: 152/74 mmHg Indications: CHF, CAD, hx CABG, SOA, HTN, hyperlipidemia 2D Dimensions Left Atrium 5.52 cm M: 3.0 - 4.0 LA Volume 79.10 mL LVOT 2.00 cm (M/F) 1.5-2.5 LA Volume Index 36.62 mL/m2 (M/F) 16-34 EF AP4 57.80 % GL Strain -13.7 % M-Mode Dimensions RVDd 3.29 cm (0.9-2.6) LVDd 5.21 cm (3.5-5.7) Ao Diam 3.70 cm (2.0-3.7) LVDs 4.05 cm (3.5-5.7) IVSd 0.93 cm (0.6-1.1) PWd 1.16 cm (0.6-1.1) EF (Teich) 44.60% FS 22.30% EDV (Teich) 130.10 mL ESV (Teich) 72.10 mL LV Diastology E Decel Time 246 (160-240 msec) E/A Ratio 1.3 MED E' 6.2 (>= 7 cm/sec) E'/MED E' Ratio 27.18 (<= 14) LAT E' 5.0 (>= 10 cm/sec) E/LAT E' Ratio 33.70 (<= 14) Aortic Valve LVOT Max 175.0 (70-110 cm/s) AIDEN Index 1.38 cm2/m2 LVOT VTI 36.81 cm AoV Peak Raoul. 200.0 (50-130 cm/s) AO Mean GR. 7.90 (<5 mmHg) AO VTI 38.9 (18-25 cm) AIDEN (VTI) 2.97 (2.5-4.5 cm2) Mitral Valve MV E Max Raoul. 168.0 (40-130 cm/s) MV A Velocity 131.0 (40-130 cm/s) E/A Ratio 1.29 MV Decel. Time 246 (160-240 ms) MV PHT 103.0 ms Tricuspid Valve TR P. Velocity 321.00 cm/s RAP Estimate 10.00 mmHg RVSP 51.30 mmHg Left Ventricle The left ventricle is normal size. The left ventricular systolic function is normal. The left ventricular ejection fraction is within the normal range. There is increased LV wall thickness. There is normal LV segmental wall motion. Diastolic function is indeterminate. LVEF is 55%. Right Ventricle Right ventricle is mildly dilated. Right ventricle is mildly hypokinetic. Atria Left atrium is mildly dilated. Right atrium is mildly dilated. There is no Doppler evidence of interatrial shunt. Aortic Valve The aortic valve is moderately thickened. Mild aortic stenosis. AIDEN by continuity equation is 1.8 m/s. Peak velocity 2.2 m/s. Mean AV gradient 10 mmHg. Max AV gradient 18 mmHg. Mild aortic regurgitation. Mitral Valve Moderate mitral annular calcification. The mitral valve leaflets are thickened. Mild mitral stenosis. Mean MV gradient 7 mmHg. MVA by PHT is 2.2 cm2. Mild mitral regurgitation. Tricuspid Valve The tricuspid valve leaflets are thin and pliable. Mild tricuspid regurgitation. RVSP is 45-50 mmHg. Pulmonic Valve The pulmonary valve is normal in structure. Trace pulmonic regurgitation. Great Vessels The aortic root is normal in size. The ascending aorta is not well-visualized. IVC is normal in size, but collapses < 50% with respirophasic variation. RA pressure is estimated at 8 mmHg. Pericardium There is no pericardial effusion. Other Information Study Quality: Fair Conclusion Normal LV systolic function. Mild RV dilation with mild reduction in RV function. Mild biatrial dilation. Mild AI, mild MR, mild TR. Mild (AIDEN by continuity equation is 1.8 m/s. Peak velocity 2.2 m/s. Mean AV gradient 10 mmHg. Max AV gradient 18 mmHg). Mild MS (mean MV gradient 7 mmHg. MVA by PHT is 2.2 cm2). Electronically signed by : Quin Galvez MD 05/24/2024 20:29:10
[2024-05-21 14:38] LABS: Troponin I < 0.01 ng/ml (0.00-0.034)
--- NOTE | 2024-05-21 14:39 | EXP.HP ---
History of Present Illness *Admission Date: 05/21/24 *Reason for visit:: Shortness of air *History of present illness: This is an 84-year-old male that presents to [facility] emergency department with concerns of shortness of air. He reports a chronic history of hypoxic respiratory failure on 2-3 L of oxygen at home that he reports using at nighttime. He reports no NIPPV therapy at home. He lives with his of 32 years. His past medical history significant for BMI of 41, pulmonary hypertension, chronic HFpEF, previous episodes of bronchitis. He describes approximately 3 days of increasing lower extremity edema, shortness of air made worse with activity. He denied associated retrosternal chest pain, palpitations, confusion, fever, chills or purulent sputum production. He reports home loop diuretic therapy with no improvement. In the ED he is admitting VBG identified pCO2 of 70 and a pO2 of 39 and he required BiPAP therapy for his presenting shortness of air. His chest x-ray was concerning for pulmonary vascular congestion when compared to previous imaging. It also demonstrated bibasilar opacities concerning for pneumonia. [facility] Medical History (Updated 05/21/24 @ 17:37 by Floyd Huitron MD) Coronary artery disease Pulmonary hypertension (HFpEF) heart failure with preserved ejection fraction Chronic hypoxic respiratory failure Hypertension Kidney stones Diabetes Surgical History History of bilateral knee replacement History of heart artery stent Hx of CABG Family History Other No significant family history Social History Smoking Status: Never smoker alcohol intake: never substance use type: denies use current occupational status: retired Travel in the last 8 weeks: None household members: spouse housing: house caffeine: No Review of Systems Review of Systems Review of systems:: pertinent systems reviewed and negative unless documented below Meds Home Medications and Allergies Home Medications ?Medication ?Instructions ?Recorded ?Confirmed ?Type atorvastatin 80 mg tablet 80 mg PO HS Cholesterol 90 days 01/21/18 05/21/24 History folic acid 1 mg tablet 1 mg PO DAILY Supplement 30 days 01/21/18 05/21/24 History methotrexate sodium 2.5 mg tablet 15 mg PO FR psoriasis 04/14/18 05/21/24 History tamsulosin 0.4 mg capsule 0.4 mg PO DAILY Prostate 04/14/18 05/21/24 History hyperplasia clopidogrel 75 mg tablet 75 mg PO DAILY antiplatelet 06/09/21 05/21/24 History furosemide 40 mg tablet 40 mg PO DAILY DIURETIC 06/09/21 05/21/24 History acetaminophen 300 mg-codeine 30 mg 1 tab PO Q6HP PRN Pain 09/01/23 05/21/24 History tablet lisinopril 30 mg tablet 30 mg PO DAILY Hypertension 09/01/23 05/21/24 History metoprolol tartrate 50 mg tablet 50 mg PO BID hypertenson 09/01/23 05/21/24 History nitroglycerin 0.4 mg sublingual 0.4 mg sublingual Q5MINP PRN Chest 09/01/23 05/21/24 History tablet Pain ipratropium 0.5 mg-albuterol 3 mg 3 ml inhalation Q6HP PRN Shortness 09/04/23 05/21/24 Rx (2.5 mg base)/3 mL nebulization Of Breath 30 days #100 ea soln oxycodone 5 mg tablet 5 mg PO Q6H PRN Pain (Scale Score 05/21/24 05/21/24 History 4-6) New Prescriptions to Start Prescriptions: Allergies Allergy/AdvReac Type Severity Reaction Status Date / Time No Known Allergies Allergy Verified 07/03/21 13:47 Exam Data for Last 24 hours Vital signs and Labs for Last 24 Hours: Temp Pulse Resp BP Pulse Ox O2 Del Method O2 Flow Rate 98.8 F 89 26 H 152/74 H 89 L Nasal Cannula 4 05/21/24 12:44 05/21/24 12:44 05/21/24 12:44 05/21/24 12:44 05/21/24 12:57 05/21/24 12:57 05/21/24 12:57 FiO2 50 05/21/24 14:00 Laboratory Results - last 24 hr 05/21/24 12:59: VBG pH 7.28 L, VBG pCO2 70.2 H, VBG pO2 38.9, VBG HCO3 32.5 H, VBG Total CO2 34.7 H, VBG O2 Saturation 71.2 H, VBG Base Excess 5.9 H, VBG Lactic Acid 1.4, SARS-CoV-2 (PCR) Not detected, Influenza A Untype (PCR) Not detected, Influenza Type B (PCR) Not detected 05/21/24 13:20: WBC 9.7, RBC 4.25 L, Hgb 12.7 L, Hct 43.6, MCV 102.5 H, MCH 29.9, MCHC 29.1 L, RDW 15.2, Plt Count 231, MPV 8.4, Neut % (Auto) 80.1 H, Lymph % (Auto) 10.3, [place] % (Auto) 7.4, Eos % (Auto) 1.8, Baso % (Auto) 0.4, Neut # (Auto) 7.8, Lymph # (Auto) 1.0, [place] # (Auto) 0.7, Eos # (Auto) 0.2, Baso # (Auto) 0.0, D-Dimer 0.60 H, Sodium 141, Potassium 5.0, Chloride 100, Carbon Dioxide 37 H, Anion Gap 9.0, BUN 19, Creatinine 0.80, Estimated Creat Clear 88, Estimated GFR 93, Est GFR ( Amer) 112, Glucose 128 H, Lactate 1.1, Calcium 9.7, Total Bilirubin 0.5, AST 21, ALT 20, Alkaline Phosphatase 74, Troponin I < 0.01, C-Reactive Protein 5.7 H, NT-Pro-B Natriuret Pep 2010 H, Total Protein 6.6, Albumin 3.6, Globulin 3.0, Albumin/Globulin Ratio 1.2, Procalcitonin 0.103, TSH 1.14, Thyroxine (T4) 5.4 L I & O for Last 24 hours: Intake & Output 05/18/24 05/19/24 05/20/24 05/21/24 23:59 23:59 23:59 23:59 Output Total 1000 / 1000 Balance -1000 / -1000 Weight 108.862 kg Constitutional Constitutional: mild distress, morbidly obese, chronically ill appearing and cooperative *Routine HEENT Exam Head: Present normocephalic Eye: Present EOMI and PERRL ENT: Present mucous membranes moist *Routine Neck Exam Neck: Present trachea midline; Absent JVD or lymphadenopathy *Routine Respiratory Exam Respiratory: Present accessory muscle use, respiratory distress, rhonchi, wheezes, crackles and symmetric chest movement *Routine Cardiovascular Exam Cardiovascular: Present RRR and murmur *Routine Abdominal Exam Abdominal: Present soft and normoactive bowel sounds; Absent tenderness *Routine Rectal Exam Rectal:: deferred *Routine Genitalia Exam Genitalia:: deferred *Routine Extremities Exam Extremities: Present edema, full ROM and pulses intact; Absent clubbing *Routine Skin Exam Skin: Present intact; Absent rash *Routine Neurological Exam Neurological: Present alert, oriented X3, moving all extremities, vision grossly intact, hearing grossly intact and normal speech; Absent sensory deficit or motor deficit Routine Psychiatric Exam Psychiatric: Present normal affect, normal thought process, cooperative and good insight Assessment and Plan *Assessment and plan (1) Acute on chronic respiratory failure with hypoxia and hypercapnia: Status: Acute Category: Medical Code(s): J96.21 - Acute and chronic respiratory failure with hypoxia; J96.22 - Acute and chronic respiratory failure with hypercapnia (2) Bacterial pneumonia: Status: Acute Category: Medical Code(s): J15.9 - Unspecified bacterial pneumonia (3) Pulmonary hypertension: Status: Acute Category: Medical Code(s): I27.20 - Pulmonary hypertension, unspecified (4) Acute on chronic heart failure with preserved ejection fraction (HFpEF): Status: Acute Category: Medical Code(s): I50.33 - Acute on chronic diastolic (congestive) heart failure (5) Coronary artery disease: Status: Acute Category: Medical Code(s): I25.10 - Atherosclerotic heart disease of [place] coronary artery without angina pectoris Plan 84-year-old male with chronic hypoxic respiratory failure on home O2 but no NIPPV therapy with noted HFpEF and pulmonary hypertension. Problems addressed as follows: Acute on chronic respiratory failure with hypoxia and hypercapnia Bacterial pneumonia Pulmonary hypertension Concerns for JOSIAH/OHS/COPD overlap Pulse oximetry monitoring Oxygen therapy to maintain appropriate oxygen saturations Currently requiring 4 L via NC (usual home O2 requirement is 2 L) NIPPV therapy Respiratory therapy consult Chest x-ray with bibasilar opacities concerning for pneumonia Sputum cultures pending Trending labs and inflammatory markers Eliza/Alena inhalation therapy ICS therapy IV ceftriaxone P.o. doxycycline Acute on chronic HFpEF (stage C/NYHA IV) Telemetry monitoring Echo ordered ED troponin negative Intermittent proBNP Chest x-ray with cardiomegaly and pulmonary vascular congestion IV loop diuretic therapy Drug therapy requiring intensive monitoring for toxicity Routine electrolytes and creatinine Beta-gillian therapy SGLT2 inhibitor therapy ARB therapy with plans to transition to ARNI (outpatient YAMINI inhibitor therapy noted) MRA therapy Accurate I's and O's Sodium and fluid restriction Routine weights Coronary artery disease Telemetry monitoring ECG sinus rhythm with no acute ST-T changes rate 83 with QTc 404 MS Antiplatelet therapy Statin therapy Beta-gillian therapy ARB therapy The length of stay for this patient will be 2 midnights or greater due to above diagnoses.
--- NOTE | 2024-05-21 14:44 | PC.NURSE ---
called report to juliane phan on 2nd floor and answered all questions
[2024-05-21] MEDS: SPIRONOLACTONE 25MG TABLET 25 MG PO (15:18)
[2024-05-21] MEDS: DOCUSATE SODIUM 100 MG CAPSULE PO (15:18)
[2024-05-21] MEDS: ENOXAPARIN 40MG/0.4ML SYRINGE 40 MG SQ (15:18)
[2024-05-21] MEDS: IRBESARTAN 150MG TAB 150 MG PO (15:18)
[2024-05-21] MEDS: EMPAGLIFLOZIN 10MG TABLET 10 MG PO (15:18)
[2024-05-21] MEDS: predniSONE 20MG TAB 40 MG PO (15:18)
[2024-05-21] MEDS: BUMETANIDE 1MG/4ML VIAL 2 MG IV (16:28)
[2024-05-21 16:49] LABS: POC Glucose,Bedside 138 (70-110)
[2024-05-21 17:10] LABS: Troponin I < 0.01 ng/ml (0.00-0.034)
[2024-05-21] MEDS: CEFTRIAXONE SODIUM 1 GM in 0.9 % SODIUM CHLORIDE 50 ML IV (18:25)
[2024-05-21] MEDS: IPRATROPIUM/ALBUTEROL 3 ML NEB IH ×2 (18:55→23:12)
[2024-05-21] MEDS: BUDESONIDE 0.5MG/2ML NEB 0.5 MG IH (18:55)
[2024-05-21 19:58] LABS: Troponin I < 0.01 ng/ml (0.00-0.034)
[2024-05-21] MEDS: ATORVASTATIN 40MG TABLET 80 MG PO (20:31)
[2024-05-21] MEDS: CARVEDILOL 3.125MG TABLET 3.125 MG PO (20:31)
[2024-05-21] MEDS: PANTOPRAZOLE 40MG TABLET 40 MG PO (20:31)
[2024-05-21] MEDS: DOXYCYCLINE HYCL 100 MG TABLET PO (20:31)
[2024-05-22] VITALS (15 sets, daily range): BP systolic 104–118; BP diastolic 58–67; PULSE 72–100; RESP 14–18; TEMP 36.7–37.4; O2SAT 3–98; BMI 40.1; BMI 40.3
[2024-05-22] MEDS: BUDESONIDE 0.5MG/2ML NEB 0.5 MG IH ×2 (06:00→18:47)
[2024-05-22] MEDS: IPRATROPIUM/ALBUTEROL 3 ML NEB IH ×4 (06:00→23:02)
[2024-05-22 06:37] LABS: Basophils % 0.3 % (0.1-2.0); Eosinophils % 0.1 % (0.1-12.0); Hematocrit 39.3 % (42.0-52.0); Hemoglobin 12.2 g/dL (14.1-18.0); Lymphocytes # 0.7 K/mm3 (0.7-4.5); Lymphocytes % 7.5 % (10-50); Mean Corpuscular HGB Conc 30.9 g/dL (31.8-35.4); Mean Corpuscular Hemoglobin 31.1 pg (27.0-31.2); Mean Corpuscular Volume 100.4 fl (80-94); Monocytes # 0.5 K/mm3 (0.1-1.0); Monocytes % 5.7 % (1.7-9.3); Neutrophils # 7.5 K/mm3 (1.8-7.8); Neutrophils % 86.4 % (37.0-80.0); Platelet Count 199 K/mm3 (142-424); Red Blood Count 3.91 M/mm3 (4.60-6.20); Red Cell Distribution Width 15.3 % (11.5-17.5); White Blood Count 8.7 K/mm3 (4.8-10.8)
[2024-05-22 06:41] LABS: Blood Urea Nitrogen 29 mg/dl (9-20); Calcium 9.7 mg/dl (8.4-10.2); Chloride 99 mmol/L (98-107); Creatinine Clearance Estimated 91 mL/min (50-200); Estimated Glomerular Filt Rate 81 ml/min (>60); GFR (African American) 98 ML/MIN (>60); Glucose 141 mg/dl (74-100); Magnesium 1.8 mg/dl (1.6-2.3); Potassium 4.2 mmoL/L (3.5-5.1); Sodium 140 mmol/L (136-145)
[2024-05-22 06:43] LABS: MANUAL DIFFERENTIAL MANUAL DIFFERENTIAL (MANUAL DIFF)
[2024-05-22 06:48] LABS: Anion Gap 6.2 mEq/L (5-15); Carbon Dioxide 39 mmol/L (22.0-30.0)
[2024-05-22 07:27] LABS: Anisocytosis 1+; Hypochromasia 2+; Lymphocytes % 11 % (10-50); Macrocytosis 1+; Monocytes % 3 % (2-9); Neutrophils % 86 % (42-76); Nucleated Red Blood Cells 1; Platelet Estimate Normal; Total Cells Counted 100
[2024-05-22 07:47] LABS: Hemoglobin A1C 6.1 % (4.0-6.0)
[2024-05-22] MEDS: IRBESARTAN 150MG TAB 150 MG PO (08:25)
[2024-05-22] MEDS: SPIRONOLACTONE 25MG TABLET 25 MG PO (08:25)
[2024-05-22] MEDS: EMPAGLIFLOZIN 10MG TABLET 10 MG PO (08:25)
[2024-05-22] MEDS: ASPIRIN EC 81MG TABLET 81 MG PO (08:25)
[2024-05-22] MEDS: ENOXAPARIN 40MG/0.4ML SYRINGE 40 MG SQ (08:25)
[2024-05-22] MEDS: CARVEDILOL 3.125MG TABLET 3.125 MG PO ×2 (08:25→20:44)
[2024-05-22] MEDS: predniSONE 20MG TAB 40 MG PO (08:25)
[2024-05-22] MEDS: DOXYCYCLINE HYCL 100 MG TABLET PO ×2 (08:25→20:44)
[2024-05-22] MEDS: BUMETANIDE 1MG/4ML VIAL 2 MG IV ×2 (08:26→15:17)
[2024-05-22 09:01] LABS: ABG Base Excess 12.9 mmol/L (-2.4-2.3); ABG HCO3 36.6 mmhg (22.0-26.0); ABG Oxygen Saturation 93 % (90-100); ABG PH 7.47 mmol/L (7.35-7.45); ABG PO2 65.6 mmhg (80-100); ABG TCO2 38.2 mmhg (23-27)
[2024-05-22 09:07] LABS: Allen's Test acceptable; Source Right Radial
[2024-05-22 09:10] LABS: ABG PCO2 52.1 mmhg (35.0-45.0)
[2024-05-22] MEDS: CEFTRIAXONE SODIUM 1 GM in 0.9 % SODIUM CHLORIDE 50 ML IV (16:30)
--- NOTE | 2024-05-22 16:32 | CARE MANAGER ---
Addendum entered by Liza Pacheco RN 05/25/24 13:51: [facility] accepted patient and will start services today. Original Note: Patient will need home health services and requested [facility] and if unable to do home health with them anybody will be fine. INformation sent to [facility]
--- NOTE | 2024-05-22 17:05 | EXP.ACUTE.PN ---
Subjective *Date: 05/22/24 *Time: 17:05 Interval history: Showing improvement this morning. Weaned off BiPAP to 5 L on morning rounds, continue to wean during the morning to 3 L after morning rounds. No nausea or vomiting. Having adequate urine output. Down at least 2 L in volume status since initiating diuresis. Showing improvement with respiratory status. Afebrile overnight. Medical Exam Vital signs and Labs for Last 24 Hours: Vital Signs Temp Pulse Pulse Resp BP Pulse Ox O2 Del Method 05/22/24 16:00 99.4 F 88 18 115/64 91 L Nasal Cannula 05/22/24 14:54 Nasal Cannula 05/22/24 13:06 77 05/22/24 13:06 80 05/22/24 13:00 Nasal Cannula 05/22/24 12:00 98.7 F 80 18 112/63 92 L Room Air 05/22/24 11:00 Nasal Cannula 05/22/24 09:00 Nasal Cannula 05/22/24 08:02 100 H 05/22/24 08:00 88 95 Nasal Cannula 05/22/24 08:00 98.0 F 05/22/24 06:30 Nasal Cannula 05/22/24 06:00 80 14 114/59 L 90 L Nasal Cannula 05/22/24 06:00 86 05/22/24 06:00 81 05/22/24 06:00 91 L Nasal Cannula 05/22/24 05:48 87 L Nasal Cannula 05/22/24 04:43 BiPAP 05/22/24 04:00 98.3 F 05/22/24 04:00 75 05/22/24 04:00 81 18 114/59 L 90 L BiPAP 05/22/24 03:00 BiPAP 05/22/24 02:00 72 18 104/67 L 98 BiPAP 05/22/24 01:50 81 98 BiPAP 05/22/24 01:00 BiPAP 05/22/24 00:00 98.5 F 05/22/24 00:00 85 05/22/24 00:00 79 16 118/58 L 95 BiPAP 05/21/24 23:12 80 05/21/24 23:12 81 05/21/24 23:00 BiPAP 05/21/24 22:00 81 18 106/59 L 95 BiPAP 05/21/24 21:00 BiPAP 05/21/24 20:54 97 BiPAP 05/21/24 20:53 05/21/24 20:04 94 H 05/21/24 20:00 95 H 19 154/100 H 90 L Nasal Cannula 05/21/24 20:00 83 92 L Nasal Cannula 05/21/24 20:00 99.3 F 05/21/24 19:01 97 H 05/21/24 19:01 96 H 05/21/24 19:01 93 L Nasal Cannula 05/21/24 18:40 Nasal Cannula 05/21/24 18:00 94 H 24 123/70 93 L Nasal Cannula 05/21/24 17:11 84 24 110/60 94 L Nasal Cannula O2 Flow Rate FiO2 05/22/24 16:00 3 05/22/24 14:54 3 05/22/24 13:06 05/22/24 13:06 05/22/24 13:00 3 05/22/24 12:00 05/22/24 11:00 3 05/22/24 09:00 4 05/22/24 08:02 05/22/24 08:00 4 05/22/24 08:00 05/22/24 06:30 5 05/22/24 06:00 5 05/22/24 06:00 05/22/24 06:00 05/22/24 06:00 4 05/22/24 05:48 4 05/22/24 04:43 05/22/24 04:00 05/22/24 04:00 05/22/24 04:00 05/22/24 03:00 05/22/24 02:00 05/22/24 01:50 05/22/24 01:00 05/22/24 00:00 05/22/24 00:00 05/22/24 00:00 05/21/24 23:12 05/21/24 23:12 05/21/24 23:00 05/21/24 22:00 05/21/24 21:00 05/21/24 20:54 50 05/21/24 20:53 50 05/21/24 20:04 05/21/24 20:00 4 05/21/24 20:00 4 05/21/24 20:00 05/21/24 19:01 05/21/24 19:01 05/21/24 19:01 4 05/21/24 18:40 4 05/21/24 18:00 4 05/21/24 17:11 5 Intake and Output 05/22/24 05/22/24 05/22/24 07:59 15:59 23:59 Intake Total 450 / 1490 840 / 1490 200 / 1490 Output Total 1974 Balance 150 / -485 140 / -485 -775 / -485 Intake: Intake, Oral Amount 450 / 1490 840 / 1490 200 / 1490 Output: Output, Urine Amount 1974 Other: Number of Bowel Movements 1 Weight 113.489 kg 113.716 kg Patient Weight 05/22/24 23:59 Weight 113.716 kg Laboratory Results - last 24 hr 05/21/24 16:15: Troponin I < 0.01 05/21/24 19:12: Troponin I < 0.01 05/22/24 05:19: WBC 8.7, RBC 3.91 L, Hgb 12.2 L, Hct 39.3 L, MCV 100.4 H, MCH 31.1, MCHC 30.9 L, RDW 15.3, Plt Count 199, MPV 9.0, Neut % (Auto) 86.4 H, Lymph % (Auto) 7.5 L, [place] % (Auto) 5.7, Eos % (Auto) 0.1, Baso % (Auto) 0.3, Neut # (Auto) 7.5, Lymph # (Auto) 0.7, [place] # (Auto) 0.5, Eos # (Auto) 0.0, Baso # (Auto) 0.0, Total Counted 100, Neutrophils % (Manual) 86 H, Lymphocytes % (Manual) 11, Monocytes % (Manual) 3, Nucleated RBCs 1, Platelet Estimate Normal, Hypochromasia 2+, Anisocytosis 1+, Macrocytosis 1+, Sodium 140, Potassium 4.2, Chloride 99, Carbon Dioxide 39 H, Anion Gap 6.2, BUN 29 H D, Creatinine 0.90, Estimated Creat Clear 91, Estimated GFR 81, Est GFR ( Amer) 98, Glucose 141 H, Hemoglobin A1c 6.1 H, Calcium 9.7, Magnesium 1.8 05/22/24 07:11: Specimen Source Right radial, O2 % 5 lpm, ABG pH 7.47 H, ABG pCO2 52.1 H, ABG pO2 65.6 L, ABG HCO3 36.6 H, ABG Total CO2 38.2 H, ABG O2 Saturation 93, ABG Base Excess 12.9 H, Fernando Test acceptable I & O for Labs for Last 24 Hours: Intake & Output 05/19/24 05/20/24 05/21/24 05/22/24 23:59 23:59 23:59 23:59 Intake Total 360 / 360 1490 / 1490 Output Total 2450 / 2450 1974 Balance -209 / -209 -485 / -485 Weight 115.383 kg 113.716 kg Constitutional: Present no acute distress, morbidly obese, chronically ill appearing and cooperative Head: Present atraumatic ENT: Present normal exam Respiratory: Present prolonged expiratory phase, wheezes, crackles (Bilateral bases) and normal respiratory effort; Absent rhonchi Cardiac: Present Reg Rate and Rhythm GI: Present soft and normal bowel sounds; Absent distention or tenderness Extremities: Present normal inspection, full ROM and edema (1+ to knees) Skin: Present intact; Absent erythema Neuro: Present Grossly Intact, alert, awake, oriented x 3 and moves all extremities Assessment and Plan *Assessment and plan (1) Acute on chronic respiratory failure with hypoxia and hypercapnia: Status: Acute Category: Medical Code(s): J96.21 - Acute and chronic respiratory failure with hypoxia; J96.22 - Acute and chronic respiratory failure with hypercapnia (2) Bacterial pneumonia: Status: Acute Category: Medical Code(s): J15.9 - Unspecified bacterial pneumonia (3) Pulmonary hypertension: Status: Acute Category: Medical Code(s): I27.20 - Pulmonary hypertension, unspecified (4) Acute on chronic heart failure with preserved ejection fraction (HFpEF): Status: Acute Category: Medical Code(s): I50.33 - Acute on chronic diastolic (congestive) heart failure (5) Coronary artery disease: Status: Acute Category: Medical Code(s): I25.10 - Atherosclerotic heart disease of [place] coronary artery without angina pectoris Plan 84-year-old male with chronic hypoxic respiratory failure on home O2 but no NIPPV therapy with noted HFpEF and pulmonary hypertension. Showing this morning. Weaned off BiPAP with improvement in blood gas. Tolerating nasal cannula oxygen. Diuresing well. Negative volume status since admission. Problems addressed as follows: Acute on chronic respiratory failure with hypoxia and hypercapnia Bacterial pneumonia Pulmonary hypertension Concerns for JOSIAH/OHS/COPD overlap Continue supplemental oxygen as needed, currently on 3 L nasal cannula. Usual home dose 2 L. Morning ABG shows normalization of blood gas. Will not continue BiPAP this evening. Continue aggressive diuresis with Bumex 2 mg twice daily IV Strict monitoring of output Chest x-ray with bibasilar opacities concerning for pneumonia Sputum cultures pending White count normal 8.7. Electrolytes normal with potassium 4.2, magnesium 1.8. Kidney function at baseline BUN 29, creatinine 0.9. Repeat CBC, CMP, magnesium ordered for the morning. Continue DuoNebs every 6 hours scheduled; Pulmicort twice daily IV ceftriaxone P.o. doxycycline Acute on chronic HFpEF (stage C/NYHA IV) Telemetry monitoring Echo ordered, formal read pending Bumex 2 mg twice daily, Drug therapy requiring intensive monitoring for toxicity Routine electrolytes and creatinine Beta-gillian therapy SGLT2 inhibitor therapy ARB therapy with plans to transition to ARNI (outpatient YAMINI inhibitor therapy noted) Coronary artery disease Telemetry monitoring ECG sinus rhythm with no acute ST-T changes rate 83 with QTc 404 MS Antiplatelet therapy Statin therapy Beta-gillian therapy ARB therapy The length of stay for this patient will be 2 midnights or greater due to above diagnoses. Anticipate discharge tomorrow with home health Full code Cardiac diet
--- NOTE | 2024-05-22 18:29 | PC.NURSE ---
pt currently resting with family at bedside. vss. pt has not complained of any pain this shift. pt has been on 3l nc and has tolerated well with sats 94-96%. urine output has been adequate- see i&o. no complaints at this time. call light within reach
[2024-05-22] MEDS: ATORVASTATIN 40MG TABLET 80 MG PO (20:43)
[2024-05-22] MEDS: PANTOPRAZOLE 40MG TABLET 40 MG PO (20:44)
[2024-05-23] VITALS: BP 115/57; PULSE 85; RESP 18; TEMP 36.9; O2SAT 92
[2024-05-23 04:00] VITALS: BP 137/68; PULSE 81; RESP 18; TEMP 36.9; O2SAT 92; BMI 40.2
[2024-05-23] MEDS: BUDESONIDE 0.5MG/2ML NEB 0.5 MG IH (06:19)
[2024-05-23] MEDS: IPRATROPIUM/ALBUTEROL 3 ML NEB IH (06:19)
[2024-05-23 06:20] VITALS: PULSE 80; PULSE 84; O2SAT 90
--- NOTE | 2024-05-23 06:48 | PC.NURSE ---
Pt is A&OX4 and has remained on 3L O2 with sats >90%. Pt has ambulated to the bathroom with x1 assist. He denies any pain. Pt has had over 1000ml urine output so far this shift. No complaints at this time, call light within reach.
[2024-05-23 08:00] VITALS: BP 108/53; PULSE 75; RESP 19; TEMP 36.9; O2SAT 92
[2024-05-23 08:08] LABS: Basophils % 0.2 % (0.1-2.0); Eosinophils % 0.3 % (0.1-12.0); Hematocrit 42.7 % (42.0-52.0); Lymphocytes # 1.2 K/mm3 (0.7-4.5); Lymphocytes % 10.4 % (10-50); Mean Corpuscular HGB Conc 30.5 g/dL (31.8-35.4); Mean Corpuscular Hemoglobin 30.8 pg (27.0-31.2); Mean Corpuscular Volume 100.9 fl (80-94); Mean Platelet Volume 8.2 fl (7.4-10.4); Monocytes # 0.8 K/mm3 (0.1-1.0); Monocytes % 7.3 % (1.7-9.3); Neutrophils # 9.2 K/mm3 (1.8-7.8); Neutrophils % 81.9 % (37.0-80.0); Platelet Count 233 K/mm3 (142-424); Red Blood Count 4.23 M/mm3 (4.60-6.20); Red Cell Distribution Width 15.5 % (11.5-17.5); White Blood Count 11.2 K/mm3 (4.8-10.8)
[2024-05-23] MEDS: CARVEDILOL 3.125MG TABLET 3.125 MG PO (08:20)
[2024-05-23] MEDS: BUMETANIDE 1MG/4ML VIAL 2 MG IV (08:20)
[2024-05-23] MEDS: FOLIC ACID 1MG TABLET 1 MG PO (08:20)
[2024-05-23] MEDS: SPIRONOLACTONE 25MG TABLET 25 MG PO (08:20)
[2024-05-23] MEDS: DOCUSATE SODIUM 100 MG CAPSULE PO (08:20)
[2024-05-23] MEDS: ENOXAPARIN 40MG/0.4ML SYRINGE 40 MG SQ (08:20)
[2024-05-23] MEDS: CLOPIDOGREL 75MG TAB 75 MG PO (08:20)
[2024-05-23] MEDS: ASPIRIN EC 81MG TABLET 81 MG PO (08:20)
[2024-05-23] MEDS: EMPAGLIFLOZIN 10MG TABLET 10 MG PO (08:20)
[2024-05-23] MEDS: predniSONE 20MG TAB 40 MG PO (08:20)
[2024-05-23] MEDS: IRBESARTAN 150MG TAB 150 MG PO (08:20)
[2024-05-23] MEDS: DOXYCYCLINE HYCL 100 MG TABLET PO (08:20)
--- NOTE | 2024-05-23 08:40 | P.DS_ITS ---
General Admission date:: 05/21/24 Discharge date: 05/23/24 HPI HPI HPI: This is an 84-year-old male that presents to [facility] emergency department with concerns of shortness of air. He reports a chronic history of hypoxic respiratory failure on 2-3 L of oxygen at home that he reports using at nighttime. He reports no NIPPV therapy at home. He lives with his of 32 years. His past medical history significant for BMI of 41, pulmonary hypertension, chronic HFpEF, previous episodes of bronchitis. He describes approximately 3 days of increasing lower extremity edema, shortness of air made worse with activity. He denied associated retrosternal chest pain, palpitations, confusion, fever, chills or purulent sputum production. He reports home loop diuretic therapy with no improvement. In the ED he is admitting VBG identified pCO2 of 70 and a pO2 of 39 and he required BiPAP therapy for his presenting shortness of air. His chest x-ray was concerning for pulmonary vascular congestion when compared to previous imaging. It also demonstrated bibasilar opacities concerning for pneumonia. Hospital Course Hospital Course Hospital Course: 84-year-old male with chronic hypoxic respiratory failure on home O2 but no NIPPV therapy with noted HFpEF and pulmonary hypertension. Showed improvement during admission. Patient was weaned off BiPAP with improvement in blood gas. Able to tolerate nasal cannula oxygen. Weaned to 3 L by day of discharge. Responding well to diuresis. Stable to discharge home to continue treatment as an outpatient. Problems addressed as follows: Acute on chronic respiratory failure with hypoxia and hypercapnia Bacterial pneumonia Pulmonary hypertension Concerns for JOSIAH/OHS/COPD overlap. Did well after initial BiPAP. Showed improvement. Weaned to nasal cannula in less than 24 hours. Tolerating baseline oxygen. Morning ABG was normal. No indication for BiPAP at discharge. Continue aggressive diuresis. Adjustments made to home regimen. Chest x-ray had bibasilar opacities, was initiated on antibiotics. Will continue antibiotics at discharge. Continue breathing treatments. Given his improvement clinically and and respiratory status, stable to discharge home to complete course as an outpatient. Acute on chronic HFpEF (stage C/NYHA IV) Monitor on telemetry. Echo was obtained with EF preserved at 55%, mild aortic stenosis with gradient 10 mmHg. Mild elevation in RVSP of 45 to 50 mmHg. Consistent with heart failure with preserved ejection fraction.. Treated with Bumex 2 mg twice daily, monitored output strictly. Showed improvement with his breathing with treatment for his acute on chronic heart failure. Transitioned to metolazone 5 mg daily at discharge. Appears euvolemic on day of discharge. Recommend follow-up with primary care for further adjustments of goal-directed medications. Coronary artery disease Monitored on telemetry. No chest pain. Continue Lipitor 80 mg hs, Plavix 75 mg daily, lisinopril 30 mg daily, metoprolol tartrate 50 mg twice daily. On admission, ECG sinus rhythm with no acute ST-T changes rate 83 with QTc 404 MS. overall stable during admission. Exam Data for Last 24 hours Vital signs and Labs for Last 24 Hours: Temp Pulse Resp BP Pulse Ox O2 Del Method O2 Flow Rate 98.5 F 80 18 137/68 90 L Nasal Cannula 3 05/23/24 04:00 05/23/24 06:20 05/23/24 04:00 05/23/24 04:00 05/23/24 06:20 05/23/24 07:00 05/23/24 07:00 FiO2 50 05/21/24 20:54 Laboratory Results - last 24 hr 05/22/24 07:11: Specimen Source Right radial, O2 % 5 lpm, ABG pH 7.47 H, ABG pCO2 52.1 H, ABG pO2 65.6 L, ABG HCO3 36.6 H, ABG Total CO2 38.2 H, ABG O2 Saturation 93, ABG Base Excess 12.9 H, Fernando Test acceptable 05/23/24 07:07: WBC 11.2 H D, RBC 4.23 L, Hgb 13.0 L, Hct 42.7, MCV 100.9 H, MCH 30.8, MCHC 30.5 L, RDW 15.5, Plt Count 233, MPV 8.2, Neut % (Auto) 81.9 H, Lymph % (Auto) 10.4, Gilchrist % (Auto) 7.3, Eos % (Auto) 0.3, Baso % (Auto) 0.2, Neut # (Auto) 9.2 H, Lymph # (Auto) 1.2, Gilchrist # (Auto) 0.8, Eos # (Auto) 0.0, Baso # (Auto) 0.0 I & O for Last 24 hours: Intake & Output 05/20/24 05/21/24 05/22/24/14/24 23:59 23:59 23:59 23:59 Intake Total 360 / 360 2029 Output Total 2450 / 2450 2900 / 3100 1060 / 1060 Balance -2090 / -2090 -870 / -1070 -1060 / -1060 Weight 115.383 kg 113.716 kg 113.511 kg Microbiology Reports for the Last 24 Hours: Microbiology 05/22/24 18:53 Sputum - Expectorated Sputum Gram Stain - Final Constitutional Constitutional: no acute distress, obese, chronically ill appearing and cooperative *Routine HEENT Exam Head: Present normocephalic Eye: Present EOMI and PERRL ENT: Present mucous membranes moist *Routine Neck Exam Neck: Present supple; Absent lymphadenopathy *Routine Respiratory Exam Respiratory: Present prolonged expiratory phase, rhonchi and normal respiratory effort; Absent wheezes or crackles *Routine Cardiovascular Exam Cardiovascular: Present RRR *Routine Abdominal Exam Abdominal: Present soft and normoactive bowel sounds; Absent tenderness *Routine Rectal Exam Patient deferred: visual exam *Routine Exam Patient deferred: penile exam *Routine Extremities Exam Extremities: Absent cyanosis, clubbing or edema *Routine Skin Exam Skin: Present intact and warm; Absent rash *Routine Neurological Exam Neurological: Present alert, oriented X3 and moving all extremities; Absent altered mental status Results Data Completed and Pending Labs on day of discharge: Labs from last 24 hours 05/23/24 05/22/24 07:07 07:11 WBC 11.2 H D RBC 4.23 L Hgb 13.0 L Hct 42.7 MCV 100.9 H MCH 30.8 MCHC 30.5 L RDW 15.5 Plt Count 233 MPV 8.2 Neut % (Auto) 81.9 H Lymph % (Auto) 10.4 Gilchrist % (Auto) 7.3 Eos % (Auto) 0.3 Baso % (Auto) 0.2 Neut # (Auto) 9.2 H Lymph # (Auto) 1.2 Gilchrist # (Auto) 0.8 Eos # (Auto) 0.0 Baso # (Auto) 0.0 Specimen Source Right radial O2 % 5 lpm ABG pH 7.47 H ABG pCO2 52.1 H ABG pO2 65.6 L ABG HCO3 36.6 H ABG Total CO2 38.2 H ABG O2 Saturation 93 ABG Base Excess 12.9 H Fernando Test acceptable DS: Diagnosis Discharge Diagnosis (1) Acute on chronic respiratory failure with hypoxia and hypercapnia: Status: Acute Code(s): J96.21 - Acute and chronic respiratory failure with hypoxia; J96.22 - Acute and chronic respiratory failure with hypercapnia (2) Bacterial pneumonia: Status: Acute Code(s): J15.9 - Unspecified bacterial pneumonia (3) Pulmonary hypertension: Status: Acute Code(s): I27.20 - Pulmonary hypertension, unspecified (4) Acute on chronic heart failure with preserved ejection fraction (HFpEF): Status: Acute Code(s): I50.33 - Acute on chronic diastolic (congestive) heart failure (5) Coronary artery disease: Status: Acute Code(s): I25.10 - Atherosclerotic heart disease of kaibab coronary artery without angina pectoris Meds Home Medications and Allergies Home Medications ?Medication ?Instructions ?Recorded ?Confirmed ?Type atorvastatin 80 mg tablet 80 mg PO HS 90 days 01/21/18 05/21/24 History folic acid 1 mg tablet 1 mg PO DAILY Supplement 30 days 01/21/18 05/21/24 History methotrexate sodium 2.5 mg tablet 15 mg PO FR psoriasis 04/14/18 05/21/24 History tamsulosin 0.4 mg capsule 0.4 mg PO HS 04/14/18 05/22/24 History clopidogrel 75 mg tablet 75 mg PO DAILY 06/09/21 05/21/24 History acetaminophen 300 mg-codeine 30 mg 1 tab PO Q6HP PRN Pain 09/01/23 05/21/24 History tablet lisinopril 30 mg tablet 30 mg PO DAILY 09/01/23 05/21/24 History metoprolol tartrate 50 mg tablet 50 mg PO BID 09/01/23 05/21/24 History nitroglycerin 0.4 mg sublingual 0.4 mg sublingual Q5MINP PRN Chest 09/01/23 05/21/24 History tablet Pain oxycodone 5 mg tablet 5 mg PO Q6H PRN Pain (Scale Score 05/21/24 05/21/24 History 4-6) metolazone 5 mg tablet 5 mg PO DAILY 05/22/24 05/22/24 History cefdinir 300 mg capsule 300 mg PO Q12H 3 days #6 caps 05/23/24 Rx doxycycline hyclate 100 mg tablet 100 mg PO BID 4 days #8 tabs 05/23/24 Rx prednisone 20 mg tablet 40 mg (2 x 20 mg) PO DAILY 3 days 05/23/24 Rx #6 tabs bumetanide 1 mg tablet 1 mg PO BIDL 30 days #60 tabs 05/24/24 Rx New Prescriptions to Start Prescriptions: bumetanide Gonzalo Grace cefdinir Gonzalo Grace doxycycline hyclate Gonzalo Grace prednisone Gonzalo Grace Allergies Allergy/AdvReac Type Severity Reaction Status Date / Time No Known Allergies Allergy Verified 07/03/21 13:47 Discharge Plan Disposition Patient Disposition: Home Health Service Condition: Fair Discharge Order Discharge Orders: Discharge Order (Routine); Ordered 05/23/24 Ordered By: Gonzalo Grace Follow up Plan Follow up with: Fran So MD [Primary Care Provider] - Enter time for follow up (please call for appointment) Prescriptions/Medication Reconciliation: New prednisone 20 mg Tablet 40 mg PO DAILY 3 Days Qty: 6 0RF doxycycline hyclate 100 mg Tablet 100 mg PO BID 4 Days Qty: 8 0RF cefdinir 300 mg capsule 300 mg PO Q12H 3 Days Qty: 6 0RF bumetanide 1 mg tablet 1 mg PO BIDL 30 Days Qty: 60 0RF Continued folic acid 1 mg tablet 1 mg PO DAILY 30 Days atorvastatin 80 mg tablet 80 mg PO HS 90 Days methotrexate sodium 2.5 MG tablet 15 mg PO FR Patient Comments: 6 TABLETS BY MOUTH WEEKLY tamsulosin 0.4 MG capsule 0.4 mg PO HS Patient Comments: take 1 capsule by mouth once daily clopidogrel 75 MG tablet 75 mg PO DAILY acetaminophen-codeine 300-30 mg tablet 1 tab PO Q6HP PRN (Reason: Pain) metoprolol tartrate 50 mg tablet 50 mg PO BID lisinopril 30 mg tablet 30 mg PO DAILY nitroglycerin 0.4 mg tablet, sublingual 0.4 mg sublingual Q5MINP PRN (Reason: Chest Pain) Patient Comments: DISSOLVE ONE TABLET UNDER THE TONGUE EVERY 5 MINUTES NEEDED FOR CHEST PAIN. DO NOT EXCEED A TOTAL OF 3 DOSES IN 15 MINUTES oxycodone 5 mg Tablet 5 mg PO Q6H PRN (Reason: Pain (Scale Score 4-6)) metolazone 5 mg tablet 5 mg PO DAILY Discontinued furosemide 40 MG tablet 40 mg PO DAILY Problem Reconciliation Problems Reviewed?: Yes Patient Discharge Instructions ACTIVITY: Continue current activity DIET: continue same diet Patient Instructions: DI for Respiratory Failure Print Language: Spanish Providers Primary Care Provider: Fran So Admit Provider: Floyd Huitron Attending Provider: Floyd Huitron
[2024-05-23 09:08] LABS: Magnesium 1.9 mg/dl (1.6-2.3)
--- NOTE | 2024-05-23 09:09 | PC.NURSE ---
o2 low, just got back from bathroom + ambulation
[2024-05-23 09:29] VITALS: BMI 40.2
[2024-05-23 10:14] LABS: Anion Gap 4.1 mEq/L (5-15); Blood Urea Nitrogen 36 mg/dl (9-20); Calcium 9.7 mg/dl (8.4-10.2); Carbon Dioxide 39 mmol/L (22.0-30.0); Chloride 99 mmol/L (98-107); Creatinine Clearance Estimated 91 mL/min (50-200); Estimated Glomerular Filt Rate 81 ml/min (>60); GFR (African American) 98 ML/MIN (>60); Glucose 119 mg/dl (74-100); Potassium 4.1 mmoL/L (3.5-5.1); Sodium 138 mmol/L (136-145)
== END 2024-05-23 11:14 | disposition home health service (06) | DRG 291 ==
LOC: ER 13:13 → 2ND 14:30
PROVIDERS: Internal Medicine Adolescent Medicine; Admitting Provider Family Medicine; Emergency Provider Emergency Medicine; PCP Internal Medicine Adolescent Medicine; Visit Provider Family Medicine
DX: I50.33 Acute on chronic diastolic (congestive) heart failure (principal); J96.21 Acute and chronic respiratory failure with hypoxia; J96.22 Acute and chronic respiratory failure with hypercapnia; J15.9 Unspecified bacterial pneumonia; I27.20 Pulmonary hypertension, unspecified; I25.10 Atherosclerotic heart disease of native coronary artery without angina pectoris; I11.0 Hypertensive heart disease with heart failure; Z79.899 Other long term (current) drug therapy; Z95.1 Presence of aortocoronary bypass graft; Z99.81 Dependence on supplemental oxygen
CPT/HCPCS: 36415; 71045; 80048; 80053; 82803; 82962; 83036; 83605; 83735; 83880; 84145; 84436; 84443; 84484; 85007; 85025; 85027; 85378; 86140; 87070; 87077; 87205; 87636; 93005; 93306; 94640; 94761; 99285; J0696; J1650; J1939; J1940; J2919; J7620; J8610

== ENCOUNTER 2024-10-05 09:10 | Outpatient (CLI) | payer MEDICARE, SELFPAY ==
--- NOTE | 2024-10-05 09:16 | CT_ITS ---
FINAL REPORT TECHNIQUE: Pre- and postcontrast images of the abdomen were performed by computed tomography. CLINICAL HISTORY: RENAL MASS COMPARISON: 09/05/2022 FINDINGS: CT ABDOMEN WITH AND WITHOUT CONTRAST: Precontrast enhanced images do not reveal any evidence of calcified renal stones. There are small stones/sludge in the dependent portion of the gallbladder. Scarring is present in the lung bases. The liver is normal in size and attenuation. The spleen is unremarkable. The adrenals are normal. The pancreas is unremarkable. There is a complex exophytic mass in the posterior aspect of the right kidney, that measures 2.9 cm in size, slightly larger than seen on the prior examination with a slightly enlarged central low-attenuation region. This complex mass is seen best on image #47 of series 5. The complex mass seen in the posterior left kidney on prior examinations. On today's exam this mass measures 3.3 x 2.5 cm, with a larger soft tissue component, best seen on image #42 of series 6. Other benign-appearing cysts remain present and are stable. IMPRESSION: Complex exophytic mass in the posterior aspect of the right kidney, is slightly larger than seen on the prior examination, now measures 2.9 cm in size, with a slightly enlarged central component as well. There is another complex mass seen in the posterior left kidney, 3.3 x 2.5 cm in size, with enlargement of the soft tissue component when compared to the prior exam. These masses are both worrisome for renal cell carcinoma. Reviewed, Interpreted and Dictated by Leonardo Black MD Transcribed by Kallie Holley Authenticated and [facility]
[2024-10-05 09:41] LABS: Blood Urea Nitrogen 17 mg/dl (9-20); Estimated Glomerular Filt Rate 72 ml/min (>60); GFR (African American) 87 ML/MIN (>60)
[2024-10-05] MEDS: SODIUM CHLORIDE 0.9% 10ML SYR (RAD ONLY) 10 ML IV (10:33)
[2024-10-05] MEDS: IOPAMIDOL-370 (76%);100ML BOTTLE 75 ML IV (10:33)
== END 2024-10-05 23:59 | disposition home or self-care (01) ==
LOC: RAD 09:11
PROVIDERS: PCP Internal Medicine Adolescent Medicine; Visit Provider Urology
DX: N28.89 Other specified disorders of kidney and ureter (principal)
CPT/HCPCS: 36415; 74170; 82565; 84520; Q9967

== ENCOUNTER 2024-11-23 10:37 | Outpatient (CLI) | payer MEDICARE, SELFPAY ==
--- NOTE | 2024-11-23 10:42 | XR_ITS ---
FINAL REPORT CLINICAL HISTORY: CHRONIC CONGESTIVE HEART FAILURE Shortness of breath COMPARISON: 05/21/2024 FINDINGS: PA and lateral views of the chest obtained. No acute pulmonary density is evident. There are chronic changes in the bilateral lung bases. Mild pleural scarring is seen bilaterally. There is no significant pleural effusion. The patient is status post CABG. There is stable borderline cardiomegaly. IMPRESSION: Chronic changes without acute process. Reviewed, Interpreted and Dictated by Jessenia Machado MD Transcribed by Tammi Page Authenticated and [facility]
== END 2024-11-23 23:59 | disposition home or self-care (01) ==
LOC: RAD 10:38
PROVIDERS: PCP Internal Medicine Adolescent Medicine; Visit Provider Internal Medicine Adolescent Medicine
DX: R06.02 Shortness of breath (principal); I50.9 Heart failure, unspecified
CPT/HCPCS: 71046